=== PATIENT | male | born 1945 | race Caucasian/White ===

== ENCOUNTER 2017-06-05 16:07 | Observation (INO) | payer OTHER ==
[~2017-06-05] VITALS: Ht 167.6 cm; Wt 81.8 kg
[~2017-06-05 16:07] MED LIST: BP MED; BPH MED
[2017-06-05 16:09] VITALS: BP 200/118; PULSE 83; RESP 18; TEMP 98.6; O2SAT 97
[2017-06-05] MEDS ORDERED: SODIUM CHLORIDE 0.9% FLUSH 10 ML FLUSH IVF PRN (16:45)
--- NOTE | 2017-06-05 16:49 | PD ---
HPI Chief Complaint: Neuro Symptoms/ Deficits Time Seen by Provider: 16:19 Travel History International Travel<30 days: No Contact w/Intl Traveler<30days: No Traveled to known affect area: No History of Present Illness HPI The patient is a 72-year-old male who presents emergency department send generalized weakness, neuropathy or lower extremities, and possible early dementia. The patient had a CAT scan one month ago which apparently showed some type of brain tumor per family report and he was being followed by Dr. Flannery, the neurologist. The family member states that the patient developed garbled speech this morning, he was hard to comprehend, and it appeared that he had word salad. The family member states that the patient's speech has currently improved, they are now able to understand the patient. He denied any acute focal deficits of the upper or lower extremities, does note he has had some weakness the lower extremities for several months, occasionally has difficulty going from a sitting to standing position. The patient symptoms were moderate earlier today and self resolving. He denies any current headache , chest pain, shortness breath, nausea, vomiting, or abdominal pain. The family members do note that the patient's speech has resolved. PFSH Past Medical History Cardiovascular Problems: Yes (HTN, hyperlipidemia, CABG) High Cholesterol: Yes Coronary Artery Disease: Yes Diminished Hearing: No Hypertension: Yes Tetanus Vaccination: Never Vaccinated Influenza Vaccination: No Past Surgical History Cardiac Surgery: Yes Coronary Artery Bypass Graft: Yes Tonsillectomy: Yes Social History Alcohol Use: Yes (OCCASIONALLY) Tobacco Use: Yes (1 PPD) Substance Use: No Allergies-Medications (Allergen,Severity, Reaction): Coded Allergies: No Known Allergies (Verified , 01/14/14) Reported Meds & Prescriptions Reported Meds & Active Scripts Active Reported [Bph Med] [Bp Med] Review of Systems Except as stated in HPI: all other systems reviewed are Neg General / Constitutional: No: Fever HENT: No: Lightheadedness Cardiovascular: No: Chest Pain or Discomfort Respiratory: No: Shortness of Breath Gastrointestinal: No: Nausea, Vomiting, Abdominal Pain Musculoskeletal: Positive: Weakness Neurologic: Positive: Weakness, Slurred Speech, No: Focal Abnormalities, Change in Mentation, Paresthesia, Sensory Disturbance Physical Exam Narrative GENERAL: Awake, alert, pleasant 72-year-old male who appears his stated age SKIN: Focused skin assessment warm/dry. HEAD: Atraumatic. Normocephalic. EYES: Pupils equal and round. No scleral icterus. No injection or drainage. ENT: No nasal bleeding or discharge. Mucous membranes pink and moist. NECK: Trachea midline. No JVD. CARDIOVASCULAR: Regular rate and rhythm. No murmur appreciated. Well-healed sternal scar. RESPIRATORY: No accessory muscle use. Clear to auscultation. Breath sounds equal bilaterally. GASTROINTESTINAL: Abdomen soft, non-tender, nondistended. No rebound tenderness. MUSCULOSKELETAL: No obvious deformities. No clubbing. No cyanosis. No edema. NEUROLOGICAL: Awake and alert. No obvious cranial nerve deficits. Motor grossly within normal limits. Normal speech. Patient is oriented to person and place. Smile is symmetric. No obvious drift of the upper or lower extremities. Sensation is symmetric on the face, arms, and legs. No obvious dysarthria. PSYCHIATRIC: Appropriate mood and affect; insight and judgment normal. Data Data Last Documented VS Vital Signs Date Time Temp Pulse Resp B/P (MAP) Pulse Ox O2 Delivery O2 Flow Rate FiO2 06/05/17 16:56 97 Room Air 06/05/17 16:21 18 06/05/17 16:09 98.6 83 Orders Orders Electrocardiogram (06/05/17 16:37) Prothrombin Time / Inr (Pt) (06/05/17 16:37) Act Partial Throm Time (Ptt) (06/05/17 16:37) Complete Blood Count With Diff (06/05/17 16:37) Comprehensive Metabolic Panel (06/05/17 16:37) Creatine Kinase (Cpk) (06/05/17 16:37) Troponin I (06/05/17 16:37) Urinalysis - C+S If Indicated (06/05/17 16:37) Ct Brain W/O Iv Contrast(Rout) (06/05/17 16:37) Chest, Single Ap (06/05/17 16:37) Ecg Monitoring (06/05/17 16:37) Iv Access Insert/Monitor (06/05/17 16:37) Oximetry (06/05/17 16:37) Sodium Chloride 0.9% Flush (Ns Flush) (06/05/17 16:45) Aspirin Chew (Aspirin Chew) (06/05/17 18:00) Labs Laboratory Tests Test 1/15/18 16:40 White Blood Count 6.8 TH/MM3 Red Blood Count 5.69 MIL/MM3 Hemoglobin 17.0 GM/DL Hematocrit 50.9 % Mean Corpuscular Volume 89.5 FL Mean Corpuscular Hemoglobin 29.8 PG Mean Corpuscular Hemoglobin Concent 33.3 % Red Cell Distribution Width 14.8 % Platelet Count 157 TH/MM3 Mean Platelet Volume 8.3 FL Neutrophils (%) (Auto) 61.1 % Lymphocytes (%) (Auto) 25.9 % Monocytes (%) (Auto) 8.3 % Eosinophils (%) (Auto) 3.8 % Basophils (%) (Auto) 0.9 % Neutrophils # (Auto) 4.2 TH/MM3 Lymphocytes # (Auto) 1.8 TH/MM3 Monocytes # (Auto) 0.6 TH/MM3 Eosinophils # (Auto) 0.3 TH/MM3 Basophils # (Auto) 0.1 TH/MM3 CBC Comment DIFF FINAL Differential Comment Prothrombin Time 11.2 SEC Prothromb Time International Ratio 1.1 RATIO Activated Partial Thromboplast Time 32.2 SEC Blood Urea Nitrogen 19 MG/DL Creatinine 1.36 MG/DL Random Glucose 120 MG/DL Total Protein 7.8 GM/DL Albumin 3.8 GM/DL Calcium Level 8.4 MG/DL Alkaline Phosphatase 85 U/L Aspartate Amino Transf (AST/SGOT) 25 U/L Alanine Aminotransferase (ALT/SGPT) 33 U/L Total Bilirubin 0.6 MG/DL Sodium Level 138 MEQ/L Potassium Level 3.7 MEQ/L Chloride Level 105 MEQ/L Carbon Dioxide Level 27.9 MEQ/L Anion Gap 5 MEQ/L Estimat Glomerular Filtration Rate 51 ML/MIN Total Creatine Kinase 131 U/L Troponin I LESS THAN 0.02 NG/ML MDM Medical Decision Making Medical Screen Exam Complete: Yes Emergency Medical Condition: Yes Medical Record Reviewed: Yes Interpretation(s) EKG reveals normal sinus rhythm with a rate of 77. Q wave noted in lead 3 and aVF. Inverted T waves noted in lead V5, V6, 1, and aVL. Last Impressions Head CT 06/05/17 2277 Signed Impressions: Service Date/Time: Monday, June 05, 2017 17:32 - CONCLUSION: Stable CT brain scan with no acute intracranial abnormality. Left middle cranial fossa arachnoid cyst. Mild ischemic deep white matter demyelinization . Vascular calcifications as described. Efe Hampton MD Chest X-Ray 1/15/18 1630 Signed Impressions: Service Date/Time: Monday, June 05, 2017 16:55 - CONCLUSION: No acute disease. Efe Hampton MD Laboratory Tests Test 06/05/17 16:40 White Blood Count 6.8 TH/MM3 Red Blood Count 5.69 MIL/MM3 Hemoglobin 17.0 GM/DL Hematocrit 50.9 % Mean Corpuscular Volume 89.5 FL Mean Corpuscular Hemoglobin 29.8 PG Mean Corpuscular Hemoglobin Concent 33.3 % Red Cell Distribution Width 14.8 % Platelet Count 157 TH/MM3 Mean Platelet Volume 8.3 FL Neutrophils (%) (Auto) 61.1 % Lymphocytes (%) (Auto) 25.9 % Monocytes (%) (Auto) 8.3 % Eosinophils (%) (Auto) 3.8 % Basophils (%) (Auto) 0.9 % Neutrophils # (Auto) 4.2 TH/MM3 Lymphocytes # (Auto) 1.8 TH/MM3 Monocytes # (Auto) 0.6 TH/MM3 Eosinophils # (Auto) 0.3 TH/MM3 Basophils # (Auto) 0.1 TH/MM3 CBC Comment DIFF FINAL Differential Comment Prothrombin Time 11.2 SEC Prothromb Time International Ratio 1.1 RATIO Activated Partial Thromboplast Time 32.2 SEC Blood Urea Nitrogen 19 MG/DL Creatinine 1.36 MG/DL Random Glucose 120 MG/DL Total Protein 7.8 GM/DL Albumin 3.8 GM/DL Calcium Level 8.4 MG/DL Alkaline Phosphatase 85 U/L Aspartate Amino Transf (AST/SGOT) 25 U/L Alanine Aminotransferase (ALT/SGPT) 33 U/L Total Bilirubin 0.6 MG/DL Sodium Level 138 MEQ/L Potassium Level 3.7 MEQ/L Chloride Level 105 MEQ/L Carbon Dioxide Level 27.9 MEQ/L Anion Gap 5 MEQ/L Estimat Glomerular Filtration Rate 51 ML/MIN Total Creatine Kinase 131 U/L Troponin I LESS THAN 0.02 NG/ML Differential Diagnosis Differential diagnosis includes TIA, CVA, intracranial hemorrhage, seizure, complicated migraine, dementia, delirium, UTI, hyponatremia. Narrative Course IV was established, labs are drawn and sent, and the patient was placed on cardiac telemetry monitoring and continuous pulse oximetry monitoring. EKG was ordered and interpreted. Stat CT of the brain was obtained. Creatinine was mildly elevated at 1.36, troponin was unremarkable. CT of the brain reveals an arachnoid cyst, no acute infarct noted. The patient had dysarthria earlier today with no other obvious source such as delirium, may be secondary to a TIA. The patient does have multiple risk factors including hyperlipidemia, known CAD, and hypertension. Therefore, patient be 23 hour observation, may benefit from carotid ultrasound and echocardiogram. The patient [facility] [employer] Physician Communication Physician Communication The patient has [employer], therefore[facility]. Diagnosis Primary Impression: Dysarthria Additional Impression: TIA (transient ischemic attack) Qualified Codes: G45.9 - Transient cerebral ischemic attack, unspecified Admitting Information Admitting Physician Requests: Observation Condition: Stable Geo Maxwell MD Jun 05, 2017 16:49
[2017-06-05 16:56] VITALS: O2SAT 97
[2017-06-05 17:06] LABS: AUTOMATED NEUTROPHIL # 4.2 TH/MM3 (1.8-7.7); BASOPHIL # 0.1 TH/MM3 (0-0.2); BASOPHIL % 0.9 % (0.0-2.0); EOSINOPHIL # 0.3 TH/MM3 (0-0.4); EOSINOPHIL % 3.8 % (0.0-4.0); HEMATOCRIT 50.9 % (39.0-51.0); LYMPH % 25.9 % (9.0-44.0); LYMPHOCYTE # 1.8 TH/MM3 (1.0-4.8); MEAN CELL VOLUME 89.5 FL (80.0-100.0); MEAN CORPUSCULAR HEMOGLOBIN 29.8 PG (27.0-34.0); MEAN CORPUSCULAR HGB CONC 33.3 % (32.0-36.0); MEAN PLATELET VOLUME 8.3 FL (7.0-11.0); MONO % 8.3 % (0.0-8.0); MONOCYTE # 0.6 TH/MM3 (0-0.9); NEUT % 61.1 % (16.0-70.0); PLATELET COUNT 157 TH/MM3 (150-450); RED BLOOD COUNT 5.69 MIL/MM3 (4.50-5.90); RED CELL DISTRIBUTION WIDTH 14.8 % (11.6-17.2); WHITE BLOOD COUNT 6.8 TH/MM3 (4.0-11.0)
[2017-06-05 17:13] LABS: INTERNATIONAL NORMALIZED RATIO 1.1 RATIO; PROTHROMBIN TIME - PATIENT 11.2 SEC (9.8-11.6)
--- NOTE | 2017-06-05 17:13 | RADRPT ---
EXAM DATE/TIME: 06/05/2017 16:55 [facility] COMPARISON: No previous studies available for comparison. INDICATIONS : Syncope. MEDICAL HISTORY : None. SURGICAL HISTORY : CABG. ENCOUNTER: Initial ACUITY: 1 day PAIN SCORE: 0/10 LOCATION: Bilateral chest FINDINGS: There is evidence of prior median sternotomy CABG with atherosclerotic changes the aorta and borderli ne left ventricular cardiomegaly compensate. Lung blankenship are clear. CONCLUSION: No acute disease. Efe Hampton MD on June 05, 2017 at 17:09 Board Certified Radiologist. This report was verified electronically.
[2017-06-05 17:36] LABS: ALKALINE PHOSPHATASE 85 U/L (45-117); TOTAL BILIRUBIN ADULT 0.6 MG/DL (0.2-1.0); TOTAL PROTEIN 7.8 GM/DL (6.4-8.2); TROPONIN I LESS THAN 0.02 NG/ML (0.02-0.05)
--- NOTE | 2017-06-05 17:40 | RADRPT ---
EXAM DATE/TIME: 06/05/2017 17:32 [facility] COMPARISON: CT BRAIN W/O CONTRAST, December 10, 2011, 15:46. INDICATIONS : Altered mental status. RADIATION DOSE: 38.31 CTDIvol (mGy) MEDICAL HISTORY : Cardiovascular disease. Hypertension. SURGICAL HISTORY : None. ENCOUNTER: Initial ACUITY: 1 day PAIN SCALE: 0/10 LOCATION: TECHNIQUE: Multiple contiguous axial images were obtained of the head. Using automated exposure control and adj ustment of the mA and/or kV according to patient size, radiation dose was kept as low as reasonably a chievable to obtain optimal diagnostic quality images. DICOM format image data is available electro nically for review and comparison. FINDINGS: CEREBRUM: The ventricles are normal for age. No evidence of midline shift, mass lesion, hemorrhage or acute in farction. 3 x 4.4 cm arachnoid cyst no cranial fossa is unchanged. There is mild microvascular ischem ic demyelinization. POSTERIOR FOSSA: The cerebellum and brainstem are intact. The 4th ventricle is midline. The cerebellopontine angle i s unremarkable. EXTRACRANIAL: The visualized portion of the orbits is intact. Calcifications are noted in bilateral vertebral arter ies and initial segment of the basilar artery at the foramen. There are vascular calcifications of th e left internal carotid siphons. SKULL: The calvaria is intact. No evidence of skull fracture. CONCLUSION: Stable CT brain scan with no acute intracranial abnormality. Left middle cranial fossa arachnoid cyst. Mild ische susana deep white matter demyelinization . Vascular calcifications as described. Efe Hampton MD on June 05, 2017 at 17:34 Board Certified Radiologist. This report was verified electronically.
[2017-06-05 17:42] LABS: ALBUMIN 3.8 GM/DL (3.4-5.0); ALT (GPT) 33 U/L (12-78); AST (GOT) 25 U/L (15-37); BICARBONATE 27.9 MEQ/L (21.0-32.0); BLOOD UREA NITROGEN 19 MG/DL (7-18); CALCIUM 8.4 MG/DL (8.5-10.1); CHLORIDE 105 MEQ/L (98-107); CREATININE 1.36 MG/DL (0.60-1.30); GLOMERULAR FILTRATION RATE 51 ML/MIN (>89); GLUCOSE,RANDOM 120 MG/DL (74-106); SODIUM (NA) 138 MEQ/L (136-145)
[2017-06-05 18:00] VITALS: BP 211/124; PULSE 75; RESP 18; O2SAT 98
[2017-06-05] MEDS ORDERED: ASPIRIN 81 MG CHEW TAB CHEW ONE (18:00)
[2017-06-05] MEDS ORDERED: METO1TAB42 PO (18:58)
[2017-06-05] MEDS ORDERED: TAMS0.4C4 PO (18:58)
[2017-06-05] MEDS ORDERED: ATOR40TA16 PO (18:58)
[2017-06-05] MEDS ORDERED: NICOTINE 21 MG/24 HR PATCH T-DERMAL ONE (19:00)
[2017-06-05 19:04] LABS: BILIRUBIN, URINE NEG (NEG); BLOOD, URINE NEG (NEG); GLUCOSE,URINE NEG (NEG); KETONE, URINE NEG (NEG); MUCUS URINE FEW /lpf (OCC); NITRITE,URINE NEG (NEG); SQUAMOUS EPITHELIAL CELL URINE <1 /hpf (0-5); URINE COLOR YELLOW (YELLW/STRAW); URINE LEUKOCYTE ESTERASE NEG (NEG)
[2017-06-05 19:10] VITALS: BP 197/110; PULSE 78; RESP 16; O2SAT 97
[2017-06-05] MEDS ORDERED: SODIUM CHLORIDE 0.9% FLUSH 10 ML FLUSH IV FLUSH PRN (19:45)
[2017-06-05] MEDS ORDERED: ENALAPRILAT 2.5 MG/2 ML VIAL IV PUSH PRN (20:15)
[2017-06-05] MEDS ORDERED: SODIUM CHLORIDE 0.9% FLUSH 10 ML FLUSH IV FLUSH SCH (21:00)
--- NOTE | 2017-06-06 15:59 | EKG ---
Date Performed: 06/05/2017 Time Performed: 17:13:31 PTAGE: 72 years EKG: Sinus rhythm PATTERN CONSISTENT WITH PULMONARY DISEASE INFERIOR MYOCARDIAL INFARCTION MODERATE T-WAVE ABNORMALITY , CONSIDER LATERAL ISCHEMIA Since previous tracing, no significant change noted ABNORMAL ECG PREVIOUS TRACING : 01/14/2014 07.35 DOCTOR: Zita Cannon Interpretating Date/Time 06/06/2017 15:59:05
[2017-06-06 18:06] LABS: HEMOGLOBIN A1C 5.7 % (4.3-6.0)
== END 2017-06-05 21:07 | disposition left against medical advice (07) ==
LOC: NEPC 16:07 → NEDA 18:39
PROVIDERS: ADMIT Internal Medicine; ATTEND Internal Medicine
DX: G45.9 Transient cerebral ischemic attack, unspecified (principal); R55 Syncope and collapse; R94.31 Abnormal electrocardiogram [ECG] [EKG]; I25.10 Atherosclerotic heart disease of native coronary artery without angina pectoris; I10 Essential (primary) hypertension; E78.00 Pure hypercholesterolemia, unspecified; G93.0 Cerebral cysts; F17.200 Nicotine dependence, unspecified, uncomplicated; Z95.1 Presence of aortocoronary bypass graft
CPT/HCPCS: 70450; 71045; 80053; 81001; 82550; 83036; 84484; 85025; 85610; 85730; 93005; 99285; G0378

== ENCOUNTER 2017-07-28 11:15 | Inpatient (IN) | payer OTHER, MEDICARE ==
[~2017-07-28] VITALS: Ht 167.6 cm; Wt 99.6 kg
[2017-07-28] VITALS (10 sets, daily range): BP systolic 178–240; BP diastolic 90–133; PULSE 67–88; RESP 16–32; TEMP 97.8–98.1; O2SAT 97–99
[~2017-07-28 11:15] MED LIST changes: +ATOR40TA16 PO; +METO1TAB42 PO; +TAMS0.4C4 PO
[2017-07-28] MEDS ORDERED: GADODIAMIDE PF 287 MG/ML 20 ML VIAL (for RAD MRI) IV PUSH ONE (11:16)
[2017-07-28] MEDS ORDERED: SODIUM CHLOR 0.9% 1000 ML INJ 1,000 ML IV ONE (11:24)
[2017-07-28 11:39] LABS: AUTOMATED NEUTROPHIL # 4.3 TH/MM3 (1.8-7.7); BASOPHIL # 0.1 TH/MM3 (0-0.2); BASOPHIL % 1.2 % (0.0-2.0); EOSINOPHIL # 0.1 TH/MM3 (0-0.4); HEMATOCRIT 46.4 % (39.0-51.0); LYMPH % 24.1 % (9.0-44.0); LYMPHOCYTE # 1.6 TH/MM3 (1.0-4.8); MEAN CELL VOLUME 87.9 FL (80.0-100.0); MEAN CORPUSCULAR HEMOGLOBIN 30.2 PG (27.0-34.0); MEAN CORPUSCULAR HGB CONC 34.4 % (32.0-36.0); MEAN PLATELET VOLUME 8.2 FL (7.0-11.0); MONOCYTE # 0.5 TH/MM3 (0-0.9); NEUT % 64.7 % (16.0-70.0); PLATELET COUNT 165 TH/MM3 (150-450); RED BLOOD COUNT 5.28 MIL/MM3 (4.50-5.90); RED CELL DISTRIBUTION WIDTH 15.1 % (11.6-17.2); WHITE BLOOD COUNT 6.7 TH/MM3 (4.0-11.0)
[2017-07-28 11:43] LABS: INTERNATIONAL NORMALIZED RATIO 1.1 RATIO; PROTHROMBIN TIME - PATIENT 11.4 SEC (9.8-11.6)
[2017-07-28] MEDS ORDERED: IOHEXOL 350 MG/ML 10 ML VIAL (for RAD DIAG) IVCONTRAST ONE (11:43)
--- NOTE | 2017-07-28 11:44 | PD ---
HPI Chief Complaint: Stroke Alert Time Seen by Provider: 11:19 Travel History International Travel<30 days: No Contact w/Intl Traveler<30days: No Traveled to known affect area: No History of Present Illness HPI This patient arrives as a stroke alert. He got up this morning and went to breakfast as his usual self I am told. At 10:15 AM he became abruptly aphasic and confused and nonverbal. He does not follow commands. Very challenging to obtain any history or review of systems from. He just doesn't cooperate with questioning. I can only use the history obtained from paramedics at this point. PFSH Past Medical History Cardiovascular Problems: Yes (HTN, hyperlipidemia, CABG) High Cholesterol: Yes Coronary Artery Disease: Yes Diminished Hearing: No Hypertension: Yes Past Surgical History Cardiac Surgery: Yes Coronary Artery Bypass Graft: Yes Tonsillectomy: Yes Social History Alcohol Use: Yes (OCCASIONALLY) Tobacco Use: Yes (1 PPD) Substance Use: No Allergies-Medications (Allergen,Severity, Reaction): Coded Allergies: No Known Allergies (Verified , 01/14/14) Reported Meds & Prescriptions Reported Meds & Active Scripts Active Reported Tamsulosin (Tamsulosin HCl) 0.4 Mg Cap 0.4 Mg PO HS Metoprolol Succinate ER 24 HR (Metoprolol Succinate) 25 Mg Tab 25 Mg PO DAILY Review of Systems ROS Limitations: Clinical Condition, Altered Mental Status, Uncooperative, Poor Historian Physical Exam Narrative GENERAL: Well-nourished, well-developed patient who is confused and aphasic . SKIN: Focused skin assessment reveals no rash and nodules. Skin is Warm and dry. HEAD: Atraumatic. Normocephalic. EYES: Pupils equal and round. No scleral icterus. No injection or drainage. ENT: No nasal bleeding or discharge. Mucous membranes pink and moist. NECK: Trachea midline. No JVD. CARDIOVASCULAR: Regular rate and rhythm. No murmur appreciated. RESPIRATORY: No accessory muscle use. Clear to auscultation. Breath sounds equal bilaterally. GASTROINTESTINAL: Abdomen soft, non-tender, nondistended. Hepatic and splenic margins not palpable. MUSCULOSKELETAL: No obvious deformities. No clubbing. No cyanosis. No edema. NEUROLOGICAL: Awake and looking around. Seems to have a right sided facial droop. Symmetric reactive and round pupils. Normal gag reflex. He will recheck her and grab at objects with both arms. Withdraws legs to pain stimuli. Nonverbal . Mostly looks toward the left side. PSYCHIATRIC: Appropriate mood and affect; insight and judgment poor Data Data Last Documented VS Vital Signs Date Time Temp Pulse Resp B/P (MAP) Pulse Ox O2 Delivery O2 Flow Rate FiO2 07/28/17 14:24 69 17 240/128 (165) 98 Room Air 07/28/17 11:30 98.1 Orders Orders Diet Npo (07/28/17 Lunch) Activity Bed Rest (07/28/17 ) Electrocardiogram (07/28/17 ) I-Stat Profile (07/28/17 11:24) Prothrombin Time / Inr (Pt) (07/28/17 11:24) Act Partial Throm Time (Ptt) (07/28/17 11:24) Complete Blood Count With Diff (07/28/17 11:24) Fibrinogen (07/28/17 11:24) Creatine Kinase (Cpk) (07/28/17 11:24) Troponin I (07/28/17 11:24) Ua Includes Microscopic (07/28/17 11:24) Drug Screen, Random Urine (07/28/17 11:24) Type And Screen (07/28/17 11:24) Ct Brain W/O Iv Contrast(Rout) (07/28/17 ) Cta Brain W Iv Contrast W 3d (07/28/17 11:24) Cta Neck W Iv Contrast W 3d (07/28/17 11:24) Consult Neurology (07/28/17 ) Blood Glucose (07/28/17 11:24) Ecg Monitoring (07/28/17 11:24) Neuro Checks Q2HX12,Q4H (07/28/17 11:24) Nursing Bedside Swallow Assess .ONCE (07/28/17 11:24) Iv Access Insert/Monitor (07/28/17 11:24) NPO (07/28/17 11:24) Oximetry (07/28/17 11:24) Resp Oxygen Nc Stroke (07/28/17 ) Sodium Chlor 0.9% 1000 Ml Inj (Ns 1000 M (07/28/17 11:24) Cath For Specimen (07/28/17 11:24) (Hub Use Only)Inp Phy Cons/Ref (07/28/17 ) Iohexol 350 Inj (Omnipaque 350 Inj) (07/28/17 11:43) Labetalol Inj (Trandate Inj) (07/28/17 12:00) Labetalol Inj (Trandate Inj) (07/28/17 12:30) Aspirin Supp (Aspirin Supp) (07/28/17 12:45) Mri Brain W&W/O Contrast (07/28/17 ) Consult Vascular Surgery (07/28/17 ) ^ Hold Medication (07/28/17 ) (Hub Use Only)Inp Phy Cons/Ref (07/28/17 ) Gadodiamide Pf Inj (Omniscan Pf Inj) (07/28/17 11:16) Labs Laboratory Tests Test 07/28/17 11:15 07/28/17 12:00 White Blood Count 6.7 TH/MM3 Red Blood Count 5.28 MIL/MM3 Hemoglobin 16.0 GM/DL Bedside Hemoglobin 16.3 G/DL Hematocrit 46.4 % Bedside Hematocrit 48.0 % Mean Corpuscular Volume 87.9 FL Mean Corpuscular Hemoglobin 30.2 PG Mean Corpuscular Hemoglobin Concent 34.4 % Red Cell Distribution Width 15.1 % Platelet Count 165 TH/MM3 Mean Platelet Volume 8.2 FL Neutrophils (%) (Auto) 64.7 % Lymphocytes (%) (Auto) 24.1 % Monocytes (%) (Auto) 8.0 % Eosinophils (%) (Auto) 2.0 % Basophils (%) (Auto) 1.2 % Neutrophils # (Auto) 4.3 TH/MM3 Lymphocytes # (Auto) 1.6 TH/MM3 Monocytes # (Auto) 0.5 TH/MM3 Eosinophils # (Auto) 0.1 TH/MM3 Basophils # (Auto) 0.1 TH/MM3 CBC Comment AUTO DIFF Differential Total Cells Counted 100 Neutrophils % (Manual) 71 % Band Neutrophils % 3 % Lymphocytes % 15 % Monocytes % 8 % Eosinophils % 2 % Basophils % 1 % Neutrophils # (Manual) 5.0 TH/MM3 Differential Comment FINAL DIFF MANUAL Platelet Estimate NORMAL Platelet Morphology Comment NORMAL Prothrombin Time 11.4 SEC Prothromb Time International Ratio 1.1 RATIO Activated Partial Thromboplast Time 31.6 SEC Fibrinogen 323 mg/dL Bedside Sodium 141 MMOL/L Bedside Potassium 3.9 MMOL/L Bedside Chloride 102 MMOL/L Bedside Blood Urea Nitrogen 26 MG/DL Bedside Creatinine 1.5 MG/DL Bedside Glucose 106 MG/DL Total Creatine Kinase 202 U/L Troponin I LESS THAN 0.02 NG/ML Urine Color YELLOW Urine Turbidity CLEAR Urine pH 6.5 Urine Specific [place] 1.021 Urine Protein 30 mg/dL Urine Glucose (UA) NEG mg/dL Urine Ketones NEG mg/dL Urine Occult Blood TRACE Urine Nitrite NEG Urine Bilirubin NEG Urine Urobilinogen LESS THAN 2.0 MG/DL Urine Leukocyte Esterase NEG Urine RBC 2 /hpf Urine WBC LESS THAN 1 /hpf Urine Squamous Epithelial Cells <1 /hpf Urine Mucus FEW /lpf Urine Opiates Screen NEG Urine Barbiturates Screen NEG Urine Amphetamines Screen NEG Urine Benzodiazepines Screen NEG Urine Cocaine Screen NEG Urine Cannabinoids Screen NEG MDM Medical Decision Making Medical Screen Exam Complete: Yes Emergency Medical Condition: Yes Medical Record Reviewed: Yes Differential Diagnosis Ischemic stroke, hemorrhagic stroke, brain tumor Narrative Course I have reviewed the patient's electronic medical record. Patient was seen here November 03, 2017 for neuro symptoms. He was placed in 23 hour observation but I don't see any further rent documentation so wonder if he left AMA. There is no history and physical or discharge summary or any further testing done I evaluated this patient and then promptly sent him to CT Reviewed the grading clerk EKG which basically is the same as the one done June 05, 2017 It is abnormal but does not represent stemi. Brain CT has negative for hemorrhage Case reviewed in detail with neurologist Dr. Austin It turns out he was here June 05 and had strokelike issues. He is deemed not a TPA candidate given recent stroke. Neurologist confirms this. Patient has very accelerated hypertension. Initially presents with 244 systolic I gave him 20 mg IV labetalol It came down slightly but not a whole lot I tried a second dose of labetalol 20 mg It came down to around 200 systolic which is the neurologist will given he is having ischemic acute event we don't want to lower down to normal I reviewed the labs. CBC and metabolic profiles are normal Urine is clean Patient had CT of head and neck Patient had brain MRI which reveals acute or subacute ischemic event in the left MCA territory This is certainly any acute ischemic event Patient's blood pressure crept back up to 240 systolic I reviewed this with the hospitalist will admit We discussed options including Misael mary She will address the blood pressure at this point Patient is complex and multiple rechecks done Of note the patient developed a petechial rash just distal to the blood pressure cuff. The cuff had been working hard to get above is 244 systolic pressure. Has good pulse and capillary refill in the right arm. I believe this will resolve but may take some time. Critical Care Narrative Aggregate critical care time was 78 minutes. Time to perform other separately billable procedures was not included in the critical care time. My time did not include minutes spent treating any other patients simultaneously or on activities that did not directly contribute to the patient's treatment. The services I provided to this patient were to treat and/or prevent clinically significant deterioration that could result in: Permanent neurologic deficit, intracranial hemorrhage, cardiopulmonary arrest I provided critical care services requiring my management, as noted below: Chart data review, documentation time, medication orders and management, vital sign assessments/reviewing monitor data, ordering and reviewing lab tests, ordering and interpreting/reviewing x-rays and diagnostic studies, care of the patient and discussion of the patient with the admitting physicians. Diagnosis Primary Impression: Acute ischemic left MCA stroke Additional Impression: Accelerated hypertension Admitting Information Admitting Physician Requests: Admit Gurpreet Rubalcava MD Jul 28, 2017 11:44
[2017-07-28 11:57] LABS: TROPONIN I LESS THAN 0.02 NG/ML (0.02-0.05)
--- NOTE | 2017-07-28 11:59 | RADRPT ---
EXAM DATE/TIME: 07/28/2017 11:29 [facility] COMPARISON: CT BRAIN W/O CONTRAST, June 05, 2017, 17:32. INDICATIONS : Aphasia, stroke alert RADIATION DOSE: 56.35 CTDIvol (mGy) This report was called by Dr Perry to Dr Austin at 1152 MEDICAL HISTORY : Non-responsive. SURGICAL HISTORY : Non-responsive. ENCOUNTER: Initial ACUITY: 1 day PAIN SCALE: 0/10 LOCATION: cranial TECHNIQUE: Multiple contiguous axial images were obtained of the head. Using automated exposure control and adj ustment of the mA and/or kV according to patient size, radiation dose was kept as low as reasonably a chievable to obtain optimal diagnostic quality images. DICOM format image data is available electro nically for review and comparison. FINDINGS: Extensive periventricular low attenuation change involving both cerebral hemispheres. Atrophy also no karlene. There is an area of encephalomalacia involving the left MCA territory posteriorly which is a new finding from the prior exam. No acute hemorrhage or acute infarction observed. Left middle cranial f grupo arachnoid cyst generates some mass effect upon the temporal lobe. This measures 4.3 x 3.2 cm. No ventriculomegaly observed. Calvarium is intact. Paranasal sinuses and mastoid air cells are clear. CONCLUSION: 1. No acute hemorrhage or infarction. 2. Area of encephalomalacia involving the left MCA territory posteriorly which is a new finding from the prior study. 3. Extensive chronic small vessel ischemic change. Kenton Perry Jr., MD on July 28, 2017 at 11:55 Board Certified Radiologist. This report was verified electronically.
[2017-07-28] MEDS ORDERED: LABETALOL HCL 100 MG/20 ML VIAL IV PUSH ONE ×2 (12:00→12:30)
--- NOTE | 2017-07-28 12:08 | RADRPT ---
EXAM DATE/TIME: 07/28/2017 11:29 [facility] COMPARISON: No previous studies available for comparison. INDICATIONS : Aphasia, stroke alert. IV CONTRAST: 75 cc Omnipaque 350 (iohexol) IV ; Cumulative dose for multiple exams. RADIATION DOSE: 52.83 CTDIvol (mGy) ; Combined studies MEDICAL HISTORY : Non-responsive. SURGICAL HISTORY : Non-responsive. ENCOUNTER: Initial ACUITY: 1 day PAIN SCALE: 0/10 LOCATION: neck Elevated flow velocities and ICA/CCA ratios have been found to correlate with increased degrees of vessel stenosis, calculated as percentage of diameter relative to a normal segment of distal ICA/CCA. TECHNIQUE: Volumetric scanning was performed using a multirow detector CT scanner. The data was post processed with a variety of visualization algorithms including full-volume maximum intensity projection, multip lanar sliding thin-slab reformation, curved-planar reformation, and surface-rendering techniques. Us ing automated exposure control and adjustment of the mA and/or kV according to patient size, radiatio n dose was kept as low as reasonably achievable to obtain optimal diagnostic quality images. DICOM f ormat image data is available electronically for review and comparison. FINDINGS: AORTIC ARCH: Calcification is seen at the origin of the right innominate, and left subclavian. RIGHT CAROTID: Extremely tortuous without hemodynamically significant stenosis. LEFT CAROTID: Large amount of calcification in the proximal left internal carotid with minimal soft plaque. Stenos is is present compromise the lumen by 70-80%. VERTEBRALS: The left vertebral is patent with abundant in bed for artery calcification. The right ` vertebra l is not visualized. CONCLUSION: No cysts proximal left internal carotid with soft plaque. Stenosis 2 cm above the bifurcation is michael roximately 75% to 80%. Bowen Cameron MD FACR on July 28, 2017 at 12:03 Board Certified Radiologist. This report was verified electronically.
--- NOTE | 2017-07-28 12:09 | RADRPT ---
EXAM DATE/TIME: 07/28/2017 11:29 [facility] COMPARISON: No previous studies available for comparison. INDICATIONS : Aphasia, stroke alert. IV CONTRAST: 75 cc Omnipaque 350 (iohexol) IV ; Cumulative dose for multiple exams. RADIATION DOSE: 52.83 CTDIvol (mGy) ; Combined studies MEDICAL HISTORY : Non-responsive. SURGICAL HISTORY : Non-responsive. ENCOUNTER: Initial ACUITY: 1 day PAIN SCALE: 0/10 LOCATION: cranial TECHNIQUE: Volumetric scanning was performed using a multi-row detector CT scanner. The data was post processed with a variety of visualization algorithms including full volume maximum intensity projection, multi -planar sliding thin slab reformation, curved planar reformation, and surface rendering techniques. Using automated exposure control and adjustment of the mA and/or kV according to patient size, radiat ion dose was kept as low as reasonably achievable to obtain optimal diagnostic quality images. DICO M format image data is available electronically for review and comparison. FINDINGS: There is excellent visualization of the major intracranial arteries out to the second-order branch ve ssels. Diffuse atherosclerotic disease is observed. Within the posterior circulation there are multi ple areas of stenosis throughout the basilar artery this is in part due to calcified and noncalcified atherosclerotic plaque. There is a solitary high-grade stenosis involving the basilar artery. Mild a therosclerotic disease throughout the posterior cerebral arteries bilaterally without hemodynamically significant stenosis noted. Calcified plaque is seen throughout the intercavernous ICAs bilaterally. The maximum stenosis is 40% involving the left. Diffuse disease throughout the M1 segment on the lef t which is diffusely small in caliber. There is a more focal area of higher stenosis involving the pr oximal M1 segment with a stenosis measuring 60-70%. The right M1 segment is less heavily involved. Th e right A1 segment is diffusely small in caliber. The left A1 segment is a caliber vessel but shows s cattered atherosclerotic plaque with areas of mild luminal narrowing. No high grade stenosis seen inv olving that vessel. No filling defects observed to suggest an embolus or thrombus. No aneurysms. I spoke with Dr. Austin concerning the findings. CONCLUSION: Diffuse atherosclerotic disease. This involves the anterior and posterior circulations including area s of high-grade stenosis. In particular there is a high-grade stenosis involving the proximal left M1 segment which is diffusely diseased. No embolus or thrombus appreciated. Kenton Perry Jr., MD on July 28, 2017 at 12:00 Board Certified Radiologist. This report was verified electronically.
[2017-07-28 12:34] LABS: BANDS 3 % (0-6); BASOPHILS 1 % (0-2); LYMPHOCYTES 15 % (9-44); MONOCYTES 8 % (0-8); POLYS (SEG NEUTROPHILS) 71 % (16-70)
--- NOTE | 2017-07-28 12:43 | MB ---
cc: Angel Austin MD DATE OF CONSULT: 07/28/2017 HISTORY OF PRESENT ILLNESS: A 72-year-old man who unfortunately comes in mute and aphasic. He was just seen in the ER on June 05, 2017, came in with generalized weakness, possible early dementia, being followed by Dr. Flannery. He developed garbled speech on June 08, hard to comprehend, word salad and then it seemed to get better and they were now able to understand him. He did not have any focal deficits. PAST MEDICAL HISTORY: 1. He had a history of hypertension. 2. CABG. 3. Hyperlipidemia. SOCIAL HISTORY: He is a drinker occasionally. He has one pack per day smoking. Not a drug user. Lives alone. FAMILY HISTORY: Negative for cancer, seizure or stroke. ALLERGIES: NO KNOWN DRUG ALLERGIES. MEDICATIONS: None were listed on the prior encounter. He was supposed to take an aspirin per day according to his daughter. She is not sure if he is taking it every day. REVIEW OF SYSTEMS: According to his daughter, history of hypertension, borderline diabetes, otherwise no history of hypercholesterolemia, A-fib, Coumadin, renal, hepatic or pulmonary disease, thyroid disease, lupus, ulcer, cancer, seizure. IMAGING STUDIES: They did a CAT scan of the brain that showed white matter changes and a left middle cranial fossa arachnoid cyst. LABORATORY DATA: His CBC was essentially normal. Hematocrit was 50. His coags were normal. His creatinine was 1.36. His BMP otherwise was normal. His LFTs were normal. His glucose was normal. His troponin was negative. CPK was normal. They thought he possibly could have had a TIA. He was put on tele. He was put on observation and then evidently left the hospital after that; it is unclear. The patient did have an echocardiogram here in 2013 which showed an ejection fraction of 55-60%. The mitral valve was normal. The left atrial size was normal. Aortic valve was normal. Left atrial size 32. Nevertheless a Stroke Alert was called today. PHYSICAL EXAMINATION: VITAL SIGNS: 219/133, 32, 78, sinus rhythm. NECK: There were no carotid bruits. HEART: Regular rhythm. I do not detect a murmur. CHEST: He has a well-healed CABG scar midline chest. NEUROLOGICAL EXAMINATION: Visual blankenship - He reacts to threat on the right, a little bit better than to the left. He may have just a hint of right upper lip droop. Otherwise he moves his mouth and tongue fine. He seems to move all his extremities well, certainly bilateral lower extremity strength was normal. Right upper extremity strength appeared normal. Left upper extremity had a slight drift there at one time. His toes are downgoing bilaterally. He seemed to feel discomfort throughout. He is mute. He does not follow any commands. When I asked him to stick out his tongue, he opens his mouth wide. LABORATORY DATA: Pending from today. I am told his creatinine is 1.5 today. He had a carotid ultrasound done in 2013. 50% stenosis seen on the left. He had a CAT scan done on June 05 which I reviewed and shows what appears to be white matter changes in the left anterior temporal arachnoid cyst but no left MCA infarct is noted but today's CAT scan shows what appears to be probably a subacute left MCA infarct, probably from May. An MRI of the brain was done, was read as essentially negative in 2011 with the arachnoid cyst. Those films unfortunately cannot be pulled up. IMPRESSION AND PLAN: Left MCA infarct I suspect in May. He is not a t-PA candidate as a result. That was approximately seven weeks ago. He would be at increased risk for hemorrhage if we were to give him t-PA. We will do a CTA here and further stroke workup. I did talk with his daughter. He had that episode but he slowly seemed to get better from in mid-May and then about a week later he had another episode where he had difficulty talking and none since that time. She talked to him yesterday and he could talk fine then and then evidently the next time he was seen this morning he could not talk. He lives at home alone. MD NÉSTOR Harrison/LEANNA , 11:48 AM , 12:42 PM
[2017-07-28] MEDS ORDERED: ASPIRIN 300 MG SUPP RECTAL ONE (12:45)
[2017-07-28 13:06] LABS: BILIRUBIN, URINE NEG (NEG); BLOOD, URINE TRACE (NEG); GLUCOSE,URINE NEG (NEG); KETONE, URINE NEG (NEG); MUCUS URINE FEW /lpf (OCC); NITRITE,URINE NEG (NEG); PH, URINE 6.5 (5.0-8.5); SQUAMOUS EPITHELIAL CELL URINE <1 /hpf (0-5); URINE COLOR YELLOW (YELLW/STRAW); URINE LEUKOCYTE ESTERASE NEG (NEG)
--- NOTE | 2017-07-28 14:02 | PD.CAR.PN ---
CVT Progress Note Subjective/Hospital Course: Consult received Full dictation TF Antonio J Objective: Vital Signs Date Time Temp Pulse Resp B/P (MAP) Pulse Ox O2 Delivery O2 Flow Rate FiO2 07/28/17 13:13 69 20 220/101 (140) 98 07/28/17 12:17 74 18 224/119 (154) 98 Room Air 07/28/17 12:02 78 16 220/110 (146) 98 Room Air 07/28/17 12:02 Room Air 07/28/17 11:45 220/110 (146) 07/28/17 11:30 98.1 77 237/126 (163) 07/28/17 11:17 78 32 219/133 (161) 99 Labs: Laboratory Tests Test 07/28/17 11:15 07/28/17 12:00 White Blood Count 6.7 TH/MM3 (4.0-11.0) Red Blood Count 5.28 MIL/MM3 (4.50-5.90) Hemoglobin 16.0 GM/DL (13.0-17.0) Bedside Hemoglobin 16.3 G/DL (13.0-17.0) Hematocrit 46.4 % (39.0-51.0) Bedside Hematocrit 48.0 % (39.0-51.0) Mean Corpuscular Volume 87.9 FL (80.0-100.0) Mean Corpuscular Hemoglobin 30.2 PG (27.0-34.0) Mean Corpuscular Hemoglobin Concent 34.4 % (32.0-36.0) Red Cell Distribution Width 15.1 % (11.6-17.2) Platelet Count 165 TH/MM3 (150-450) Mean Platelet Volume 8.2 FL (7.0-11.0) Neutrophils (%) (Auto) 64.7 % (16.0-70.0) Lymphocytes (%) (Auto) 24.1 % (9.0-44.0) Monocytes (%) (Auto) 8.0 % (0.0-8.0) Eosinophils (%) (Auto) 2.0 % (0.0-4.0) Basophils (%) (Auto) 1.2 % (0.0-2.0) Neutrophils # (Auto) 4.3 TH/MM3 (1.8-7.7) Lymphocytes # (Auto) 1.6 TH/MM3 (1.0-4.8) Monocytes # (Auto) 0.5 TH/MM3 (0-0.9) Eosinophils # (Auto) 0.1 TH/MM3 (0-0.4) Basophils # (Auto) 0.1 TH/MM3 (0-0.2) CBC Comment AUTO DIFF Differential Total Cells Counted 100 Neutrophils % (Manual) 71 % (16-70) Band Neutrophils % 3 % (0-6) Lymphocytes % 15 % (9-44) Monocytes % 8 % (0-8) Eosinophils % 2 % (0-4) Basophils % 1 % (0-2) Neutrophils # (Manual) 5.0 TH/MM3 (1.8-7.7) Differential Comment FINAL DIFF MANUAL Platelet Estimate NORMAL (NORMAL) Platelet Morphology Comment NORMAL (NORMAL) Prothrombin Time 11.4 SEC (9.8-11.6) Prothromb Time International Ratio 1.1 RATIO Activated Partial Thromboplast Time 31.6 SEC (24.3-30.1) Fibrinogen 323 mg/dL (227-377) Bedside Sodium 141 MMOL/L (137-144) Bedside Potassium 3.9 MMOL/L (3.6-5.0) Bedside Chloride 102 MMOL/L (102-111) Bedside Blood Urea Nitrogen 26 MG/DL (5-21) Bedside Creatinine 1.5 MG/DL (0.6-1.3) Bedside Glucose 106 MG/DL (68-110) Total Creatine Kinase 202 U/L (39-308) Troponin I LESS THAN 0.02 NG/ML Urine Color YELLOW (YELLW/STRAW) Urine Turbidity CLEAR (CLEAR) Urine pH 6.5 (5.0-8.5) Urine Specific [place] 1.021 (1.002-1.035) Urine Protein 30 mg/dL (NEG-TRACE) Urine Glucose (UA) NEG mg/dL (NEG) Urine Ketones NEG mg/dL (NEG) Urine Occult Blood TRACE (NEG) Urine Nitrite NEG (NEG) Urine Bilirubin NEG (NEG) Urine Urobilinogen LESS THAN 2.0 MG/DL (LESS Urine Leukocyte Esterase NEG (NEG) Urine RBC 2 /hpf (0-3) Urine WBC LESS THAN 1 /hpf (0-5) Urine Squamous Epithelial Cells <1 /hpf (0-5) Urine Mucus FEW /lpf (OCC) Urine Opiates Screen NEG (NEG) Urine Barbiturates Screen NEG (NEG) Urine Amphetamines Screen NEG (NEG) Urine Benzodiazepines Screen NEG (NEG) Urine Cocaine Screen NEG (NEG) Urine Cannabinoids Screen NEG (NEG) Result Diagram: 07/28/17 1115 Raina Ellsworth MD Jul 28, 2017 14:02
--- NOTE | 2017-07-28 14:53 | RADRPT ---
EXAM DATE/TIME: 07/28/2017 13:49 [facility] COMPARISON: CT BRAIN W/O CONTRAST, July 28, 2017, 11:29. INDICATIONS : Altered mental status. CONTRAST: 20 cc Omniscan (gadodiamide) IV MEDICAL HISTORY : Benign prostatic hyperplasia, (BPH) Hypertension. SURGICAL HISTORY : CABG ENCOUNTER: Initial ACUITY: 2 day PAIN SCORE: 0/10 LOCATION: Head TECHNIQUE: Multiplanar, multisequence MRI of the brain was performed both prior to and following the administrat ion of paramagnetic contrast. FINDINGS: CEREBRUM: The ventricles are normal for age. Cortical atrophy slightly more prominent on the left. No acute int racranial hemorrhage. Prominent 3.9 x 2.2 cm arachnoid cyst in the anterior left middle cranial fossa The pituitary gland and suprasellar cistern are normal in configuration. WHITE MATTER: Significant periventricular and scattered deep white matter tracts small vessel ischemic demyelinatio n. POSTERIOR FOSSA: The cerebellum and brainstem are intact. The 4th ventricle is midline. The cerebellopontine angle is unremarkable. The cerebellar tonsils are normal in position. DIFFUSION IMAGING: Gyriform diffusion restriction in the left MCA territory. EXTRACRANIAL: The visualized portions of the orbits and paranasal sinuses are unremarkable. POST-CONTRAST: No abnormal areas of parenchymal or dural enhancement. No evidence of blood-brain barrier breakdown. CONCLUSION: 1. Gyriform diffusion restriction characteristics of an acute or subacute ischemic event in the left MCA territory. 2. Cortical atrophy slightly more prominent leftward. Severe periventricular and scattered deep white matter tracts small vessel ischemic demyelination. 3. 3.9 x 2.2 cm arachnoid cyst in the anterior left middle cranial fossa. Tomi Tejada MD on July 28, 2017 at 14:46 Board Certified Radiologist. This report was verified electronically.
[2017-07-28] MEDS ORDERED: LABETALOL HCL 100 MG/20 ML VIAL IV PUSH PRN (16:15)
[2017-07-28] MEDS ORDERED: NITROPRUSSIDE INJ 50 MG in DEXTROSE 5% IN WATER INJ 248 ML IV PRN ×2 (16:15)
[2017-07-28] MEDS ORDERED: DEXTROSE 50% IN WATER 50 ML VIAL(D50) IV PUSH PRN (16:15)
[2017-07-28] MEDS ORDERED: GLUCAGON 1 MG/ML VIAL OTHER PRN ×2 (16:15)
[2017-07-28] MEDS: SODIUM CHLOR 0.9% 1000 ML INJ 1,000 ML IV SCH ×2 (16:30→22:47)
[2017-07-28] MEDS: INSULIN ASPART SUPPLEMENTAL SCALE SQ SCH ×2 (17:00→21:31)
[2017-07-28] MEDS ORDERED: ENOXAPARIN SODIUM 40 MG/0.4 ML SYRINGE SQ SCH (17:00)
[2017-07-28] MEDS ORDERED: INSULIN ASPART SUPPLEMENTAL SCALE SQ SCH (17:00)
[2017-07-28 17:29] LABS: BICARBONATE 26.2 MEQ/L (21.0-32.0); CALCIUM 8.8 MG/DL (8.5-10.1); CREATININE 1.49 MG/DL (0.60-1.30)
--- NOTE | 2017-07-28 18:03 | HHI.HP ---
HPI Service [facility] Hospitalists Primary Care Physician Unknown Admission Diagnosis acute ischemic L MCA CVA, accelerated HTN Diagnoses: Chief Complaint: unable to speak AMS Travel History International Travel<30 Days: No Contact w/Intl Traveler <30 Da: No Traveled to Known Affected Are: No History of Present Illness Written by Terrie Werner, acting as scribe for Dr. Thompson on 07/28/17 at 17:56. This is 72-year-old male with past medical history significant for hypertension , CAD status post previous CABG, brain tumor followed by Dr. Flannery and dyslipidemia who presented to [facility] ED as a stroke alert. Patient is unable to give any history due to expressive aphasia and therefore history is obtained from review of electronic medical record and the daughter who is at the bedside. Reportedly, patient went to breakfast this morning and was in his usual state of health until around 10:15 AM when he became abruptly aphasic, confused and nonverbal. He was not able to follow commands. Apparently, he has been having episodes of "mini strokes" for the past few weeks. He was just seen in the ED Jun 05 2017 with generalized weakness and garbled speech that resolved on their own. CT of the brain at that time did not show any acute infarct. It was recommended patient stay for observation in the hospital but he declined. At present, he remains aphasic but is able to understand. He is able to follow commands. In the ED today, no acute hemorrhage or infarction appreciated however there was an area of encephalomalacia involving left MCA territory posteriorly which was new finding from the previous CT. Review of Systems Unable to obtain due to patient's aphasia Past Family Social History Past Medical History Hypertension Coronary artery disease status post CABG Dyslipidemia Borderline diabetes Brain tumor followed by Dr. Flannery Past Surgical History CABG x 4 Reported Medications Reported Meds & Active Scripts Active Reported Tamsulosin (Tamsulosin HCl) 0.4 Mg Cap 0.4 Mg PO HS Metoprolol Succinate ER 24 HR (Metoprolol Succinate) 25 Mg Tab 25 Mg PO DAILY Allergies: Coded Allergies: No Known Allergies (Verified , 01/14/14) Active Ordered Medications Active Medications Aspirin (Aspirin Chew) 81 mg DAILY PO; Start 07/29/17 at 09:00 Aspirin (Aspirin Supp) 300 mg STAT ONCE RECTAL Last administered on 07/28/17at 12 :45; Admin Dose 300 MG; Start 07/28/17 at 12:45; Stop 07/28/17 at 12:46; Status DC Atorvastatin Calcium (Lipitor) 10 mg HS PO; Start 07/28/17 at 21:00 Dextrose (D50w (Vial) Inj) 50 ml UNSCH PRN IV PUSH; Start 07/28/17 at 16:15 Dextrose (D50w (Vial) Inj) 50 ml UNSCH PRN IV PUSH; Start 07/28/17 at 16:15 Enalaprilat (Vasotec Inj) 1.25 mg Q4H PRN IV PUSH; Start 07/28/17 at 16:15 Enoxaparin Sodium (Lovenox Inj) 40 mg Q24H SQ; Start 07/28/17 at 17:00 Gadodiamide (Omniscan Pf Inj) 20 ml STK-MED ONCE IV PUSH Last administered on 07/28/17at 11:16; Admin Dose 20 ML; Start 07/28/17 at 11:16; Stop 07/28/17 at 15:31; Status DC Glucagon (Glucagon Inj) 1 mg UNSCH PRN OTHER; Start 07/28/17 at 16:15 Glucagon (Glucagon Inj) 1 mg UNSCH PRN OTHER; Start 07/28/17 at 16:15 Insulin Aspart (NovoLOG SUPPLEMENTAL SCALE) 1 ACHS SQ; Start 07/28/17 at 17:00; Stop 07/28/17 at 17:00; Status DC Insulin Aspart (NovoLOG SUPPLEMENTAL SCALE) 1 ACHS SLIDING SCALE SQ; Start 07/28 at 17:00 Iohexol (Omnipaque 350 Inj) 75 ml STK-MED ONCE IVCONTRAST Last administered on at 11:43; Admin Dose 75 ML; Start 07/28/17 at 11:43; Stop 07/28/17 at 11:44; Status DC Labetalol HCl (Trandate Inj) 10 mg Q2H PRN IV PUSH; Start 07/28/17 at 16:15 Labetalol HCl (Trandate Inj) 20 mg ONCE ONCE IV PUSH Last administered on at 12:00; Admin Dose 20 MG; Start 07/28/17 at 12:00; Stop 07/28/17 at 12:01; Status DC Labetalol HCl (Trandate Inj) 20 mg ONCE ONCE IV PUSH Last administered on at 12:30; Admin Dose 20 MG; Start 07/28/17 at 12:30; Stop 07/28/17 at 12:31; Status DC Metoprolol Succinate (Toprol Xl) 25 mg DAILY PO; Start 07/29/17 at 09:00 Sodium Nitroprusside 50 mg/Dextrose 250 ml @ 14.94 mls/ hr TITRATE PRN IV; Start 07/28/17 at 16:15 Sodium Chloride 1,000 ml @ 70 mls/hr [id number] IV Last administered on 07/28/17at 16:30; Admin Dose 70 MLS/HR; Start 07/28/17 at 16:09 Sodium Chloride 1,000 ml @ 70 mls/hr [id number] ONCE IV Last administered on at 12:01; Admin Dose 70 MLS/HR; Start 07/28/17 at 11:24; Stop 07/29/17 at 01:41 Sodium Chloride (NS Flush) 2 ml BID IV FLUSH; Start 07/28/17 at 21:00 Sodium Chloride (NS Flush) 2 ml UNSCH PRN IV FLUSH; Start 07/28/17 at 16:15 Tamsulosin HCl (Flomax) 0.4 mg HS PO; Start 07/28/17 at 21:00 Family History Son, sudden cardiac Social History Per review of the medical record, patient smokes 1 pack per day, drinks alcohol occasionally and does not have any drug use history. Physical Exam Vital Signs Vital Signs Date Time Temp Pulse Resp B/P (MAP) Pulse Ox O2 Delivery O2 Flow Rate FiO2 07/28/17 16:30 97.8 69 16 214/110 (144) 98 Room Air 07/28/17 14:24 69 17 240/128 (165) 98 Room Air 07/28/17 13:13 69 20 220/101 (140) 98 07/28/17 12:17 74 18 224/119 (154) 98 Room Air 07/28/17 12:02 78 16 220/110 (146) 98 Room Air 07/28/17 12:02 Room Air 07/28/17 11:45 220/110 (146) 07/28/17 11:30 98.1 77 237/126 (163) 07/28/17 11:17 78 32 219/133 (161) 99 Physical Exam GENERAL: This is a well-nourished, well-developed male patient, in no apparent distress. Awake and alert. Right sided facial droop. SKIN: No rashes, ecchymoses or lesions. Cool and dry. HEAD: Atraumatic. Normocephalic. No temporal or scalp tenderness. EYES: Pupils equal round and reactive. Extraocular motions intact. No scleral icterus. No injection or drainage. ENT: Nose without bleeding or purulent drainage. Throat without erythema, tonsillar hypertrophy or exudate. Uvula midline. Airway patent. NECK: Trachea midline. No lymphadenopathy. Supple, nontender, no meningeal signs. CARDIOVASCULAR: Regular rate and rhythm without murmurs, gallops, or rubs. RESPIRATORY: Clear to auscultation. Breath sounds equal bilaterally. No wheezes , rales, or rhonchi. GASTROINTESTINAL: Abdomen soft, non-tender, nondistended. No hepato-splenomegaly , or palpable masses. No guarding. MUSCULOSKELETAL: Extremities without clubbing, cyanosis, or edema. No joint tenderness, effusion, or edema noted. No calf tenderness. NEUROLOGICAL: Awake and alert. Right sided facial droop. Decreased sensation over the right side of the face. Motor and sensory grossly within normal limits. Five out of 5 muscle strength in all muscle groups. Expressive aphasia. Laboratory Laboratory Tests Test 07/28/17 11:15 07/28/17 12:00 White Blood Count 6.7 Red Blood Count 5.28 Hemoglobin 16.0 Bedside Hemoglobin 16.3 Hematocrit 46.4 Bedside Hematocrit 48.0 Mean Corpuscular Volume 87.9 Mean Corpuscular Hemoglobin 30.2 Mean Corpuscular Hemoglobin Concent 34.4 Red Cell Distribution Width 15.1 Platelet Count 165 Mean Platelet Volume 8.2 Neutrophils (%) (Auto) 64.7 Lymphocytes (%) (Auto) 24.1 Monocytes (%) (Auto) 8.0 Eosinophils (%) (Auto) 2.0 Basophils (%) (Auto) 1.2 Neutrophils # (Auto) 4.3 Lymphocytes # (Auto) 1.6 Monocytes # (Auto) 0.5 Eosinophils # (Auto) 0.1 Basophils # (Auto) 0.1 CBC Comment AUTO DIFF Differential Total Cells Counted 100 Neutrophils % (Manual) 71 Band Neutrophils % 3 Lymphocytes % 15 Monocytes % 8 Eosinophils % 2 Basophils % 1 Neutrophils # (Manual) 5.0 Differential Comment FINAL DIFF MANUAL Platelet Estimate NORMAL Platelet Morphology Comment NORMAL Prothrombin Time 11.4 Prothromb Time International Ratio 1.1 Activated Partial Thromboplast Time 31.6 Fibrinogen 323 Bedside Sodium 141 Blood Urea Nitrogen 22 Creatinine 1.49 Random Glucose 101 Calcium Level 8.8 Sodium Level 140 Potassium Level 4.0 Chloride Level 104 Carbon Dioxide Level 26.2 Bedside Potassium 3.9 Bedside Chloride 102 Anion Gap 10 Bedside Blood Urea Nitrogen 26 Bedside Creatinine 1.5 Estimat Glomerular Filtration Rate 46 Bedside Glucose 106 Total Creatine Kinase 202 Troponin I LESS THAN 0.02 Urine Color YELLOW Urine Turbidity CLEAR Urine pH 6.5 Urine Specific [place] 1.021 Urine Protein 30 Urine Glucose (UA) NEG Urine Ketones NEG Urine Occult Blood TRACE Urine Nitrite NEG Urine Bilirubin NEG Urine Urobilinogen LESS THAN 2.0 Urine Leukocyte Esterase NEG Urine RBC 2 Urine WBC LESS THAN 1 Urine Squamous Epithelial Cells <1 Urine Mucus FEW Urine Opiates Screen NEG Urine Barbiturates Screen NEG Urine Amphetamines Screen NEG Urine Benzodiazepines Screen NEG Urine Cocaine Screen NEG Urine Cannabinoids Screen NEG Result Diagram: 07/28/17 1115 07/28/17 1115 Imaging Last Impressions Neck CTA 07/28/17 1124 Signed Impressions: Service Date/Time: Friday, July 28, 2017 11:29 - CONCLUSION: No cysts proximal left internal carotid with soft plaque. Stenosis 2 cm above the bifurcation is approximately 75%% to 80%%. Bowen Cameron MD FACR Head CTA 07/28/17 1124 Signed Impressions: Service Date/Time: Friday, July 28, 2017 11:29 - CONCLUSION: Diffuse atherosclerotic disease. This involves the anterior and posterior circulations including areas of high-grade stenosis. In particular there is a high-grade stenosis involving the proximal left M1 segment which is diffusely diseased. No embolus or thrombus appreciated. Kenton Perry Jr., MD Head CT 07/28/17 0000 Signed Impressions: Service Date/Time: Friday, July 28, 2017 11:29 - CONCLUSION: 1. No acute hemorrhage or infarction. 2. Area of encephalomalacia involving the left MCA territory posteriorly which is a new finding from the prior study. 3. Extensive chronic small vessel ischemic change. Kenton Perry Jr., MD Brain MRI 07/28/17 0000 Signed Impressions: Service Date/Time: Friday, July 28, 2017 13:49 - CONCLUSION: 1. Gyriform diffusion restriction characteristics of an acute or subacute ischemic event in the left MCA territory. 2. Cortical atrophy slightly more prominent leftward. Severe periventricular and scattered deep white matter tracts small vessel ischemic demyelination. 3. 3.9 x 2.2 cm arachnoid cyst in the anterior left middle cranial fossa. MD Lavelle Larkin VTE Risk Assessment Caprini VTE Risk Assessment: Mod/High Risk (score >= 2) VTE Pharm Contraindication: Active bleeding Caprini Risk Assessment Model Point Value = 1 Point Value = 2 Point Value = 3 Point Value = 5 Age 41-60 Minor surgery BMI > 25 kg/m2 Swollen legs Varicose veins or History of unexplained or recurrent spontaneous Oral contraceptives or hormone replacement Sepsis (< 1 month) Serious lung disease, including pneumonia (< 1 month) Abnormal pulmonary function Acute myocardial infarction Congestive heart failure (< 1 month) History of inflammatory bowel disease Medical patient at bed rest Age 61-74 Arthroscopic surgery Major open surgery (> 45 min) Laparoscopic surgery (> 45 min) Malignancy Confined to bed (> 72 hours) Immobilizing plaster cast Central venous access Age >= 75 History of VTE Family history of VTE Factor V Leiden Prothrombin [id number] Lupus anticoagulant Anticardiolipin antibodies Elevated serum homocysteine Heparin-induced thrombocytopenia Other congenital or acquired thrombophilia Stroke (< 1 month) Elective arthroplasty Hip, pelvis, or leg fracture Acute spinal cord injury (< 1 month) Prophylaxis Regimen Total Risk Factor Score Risk Level Prophylaxis Regimen 0-1 Low Early ambulation 2 Moderate Order ONE of the following: *Sequential Compression Device (SCD) *Heparin 5000 units SQ BID 3-4 Higher Order ONE of the following medications: *Heparin 5000 units SQ TID *Enoxaparin/Lovenox 40 mg SQ daily (WT < 150 kg, CrCl > 30 mL/min) *Enoxaparin/Lovenox 30 mg SQ daily (WT < 150 kg, CrCl > 10-29 mL/min) *Enoxaparin/Lovenox 30 mg SQ BID (WT < 150 kg, CrCl > 30 mL/min) AND/OR *Sequential Compression Device (SCD) 5 or more Highest Order ONE of the following medications: *Heparin 5000 units SQ TID (Preferred with Epidurals) *Enoxaparin/Lovenox 40 mg SQ daily (WT < 150 kg, CrCl > 30 mL/min) *Enoxaparin/Lovenox 30 mg SQ daily (WT < 150 kg, CrCl > 10-29 mL/min) *Enoxaparin/Lovenox 30 mg SQ BID (WT < 150 kg, CrCl > 30 mL/min) AND *Sequential Compression Device (SCD) Assessment and Plan Assessment and Plan 72-year-old male with past medical history significant for hypertension, CAD status post previous CABG, brain tumor followed by Dr. Flannery and dyslipidemia who presented to [facility] ED as a stroke alert with expressive aphasia. Subacute left MCA infarct Expressive Aphasia -CT head shows no acute hemorrhage or infarction, there is an area of encephalomalacia involving the left MCA territory posteriorly, images reviewed by az -Brain MRI shows gyriform diffusion restriction characteristic of acute or subacute ischemic event in the left MCA territory -Neck CTA significant for 70-80% stenosis left internal carotid -Head CTA reveals diffuse atherosclerotic disease involving the anterior posterior circulations including areas of high-grade stenosis, high-grade stenosis involving proximal left M1 segment which is diffusely diseased -Patient has already been evaluated by Dr. Austin - likely infarct in May. Not a TPA candidate due to increased risk of hemorrhage given likely infarct 7 weeks ago. -Consult stroke navigator -neuro checks -Holter monitor -Continuous cardiac monitoring -Consult rehabilitation medicine -Patient given ASA 300mg rectal, now with macroscopic hematuria -Statin daily once able to swallow -PT/OT/ST eval/tx -NPO for now, IVF ordered -monitor blood sugars -obtain fasting lipid profile and A1c -fall, aspiration and seizure precautions Hypertension, uncontrolled -allow permissive HTN -IV Vasotec 1.25mg q 4h or Labetalol 10mg IV q2h prn SBP>220 or DBP>120 PVD -70-80% stenosis left internal carotid -Dr. Ellsworth consulted CAD s/p CABG -Patient has no cardiac complaints at this time -hold aspirin due to macroscopic hematuria -resume home metoprolol 25mg daily once cleared to swallow -Continuous cardiac monitoring ?JASIEL on suspected CKD -creatinine 1.49, previously Cr 1.36 06/05/17 and 1.04 in 2013 -Avoid nephrotoxic agents -Continue to monitor renal indices Borderline DM -Obtain hemoglobin A1c -accucheck and insulin sliding scale Macroscopic hematuria BPH -Cavazos placed with gross hematuria -resume home dose of Flomax -UA unremarkable -avoid anticoagulation -Ditropan for bladder spasms -Consult Urology, appreciate assistance DVT prophylaxis -Avoid anticoagulation at this time due to hematuria -Bilateral SCD/ZENIA hose This note was transcribed by LEE Riley . I, Dr. Lisa Thompson personally performed the history, physical exam, and medical decision making; and confirmed the accuracy of the information in the transcribed note. Authenticated by Dr. Lisa Thompson on 07/28/17 at 17:56. Discussed Condition With ED physician, nursing staff, patient and daughter Physician Certification 2 Midnight Certification Type: Admission for Inpatient Services Order for Inpatient Services The services are ordered in accordance with Medicare regulations or non- Medicare payer requirements, as applicable. In the case of services not specified as inpatient-only, they are appropriately provided as inpatient services in accordance with the 2-midnight benchmark. Estimated LOS (days): 3 3 days is the estimated time the patient will need to remain in the hospital, assuming treatment plan goals are met and no additional complications. Post-Hospital Plan: Not yet determined Terrie Werner Jul 28, 2017 18:03 Lisa Thompson MD Jul 28, 2017 19:05
[2017-07-28] MEDS ORDERED: OXYBUTYNIN CHLORIDE 5 MG TAB PO ONE (18:45)
[2017-07-28] MEDS: TAMSULOSIN HCL 0.4 MG CAP PO SCH (21:24)
[2017-07-28] MEDS: SODIUM CHLORIDE 0.9% FLUSH 10 ML FLUSH IV FLUSH SCH (21:24)
[2017-07-28] MEDS: ATORVASTATIN 10 MG TAB PO SCH (21:25)
[2017-07-28 22:17] LABS: BASOPHIL # 0.1 TH/MM3 (0-0.2); EOSINOPHIL # 0.1 TH/MM3 (0-0.4); EOSINOPHIL % 0.6 % (0.0-4.0); HEMOGLOBIN 16.8 GM/DL (13.0-17.0); LYMPH % 12.9 % (9.0-44.0); LYMPHOCYTE # 1.1 TH/MM3 (1.0-4.8); MEAN CORPUSCULAR HEMOGLOBIN 29.9 PG (27.0-34.0); MEAN CORPUSCULAR HGB CONC 34.3 % (32.0-36.0); MEAN PLATELET VOLUME 8.4 FL (7.0-11.0); MONO % 6.1 % (0.0-8.0); MONOCYTE # 0.5 TH/MM3 (0-0.9); NEUT % 79.4 % (16.0-70.0); PLATELET COUNT 162 TH/MM3 (150-450); RED BLOOD COUNT 5.63 MIL/MM3 (4.50-5.90); RED CELL DISTRIBUTION WIDTH 15.1 % (11.6-17.2); WHITE BLOOD COUNT 8.8 TH/MM3 (4.0-11.0)
[2017-07-28 22:48] LABS: HEMOGLOBIN A1C 5.6 % (4.3-6.0)
[2017-07-29] VITALS (9 sets, daily range): BP systolic 176–220; BP diastolic 89–114; PULSE 60–69; RESP 16–18; TEMP 97.4–98.5; O2SAT 95–98
[2017-07-29] MEDS: ENALAPRILAT 1.25 MG/ML VIAL IV PUSH PRN (04:09)
[2017-07-29] MEDS: SODIUM CHLOR 0.9% 1000 ML INJ 1,000 ML IV SCH (05:46)
[2017-07-29] MEDS: OXYBUTYNIN CHLORIDE 5 MG TAB PO SCH ×2 (05:46→19:06)
[2017-07-29 06:10] LABS: HEMATOCRIT 46.6 % (39.0-51.0); MEAN CELL VOLUME 87.7 FL (80.0-100.0); MEAN CORPUSCULAR HEMOGLOBIN 30.1 PG (27.0-34.0); MEAN CORPUSCULAR HGB CONC 34.4 % (32.0-36.0); MEAN PLATELET VOLUME 8.4 FL (7.0-11.0); PLATELET COUNT 159 TH/MM3 (150-450); RED BLOOD COUNT 5.31 MIL/MM3 (4.50-5.90); RED CELL DISTRIBUTION WIDTH 14.8 % (11.6-17.2); WHITE BLOOD COUNT 8.6 TH/MM3 (4.0-11.0)
[2017-07-29 06:33] LABS: ALBUMIN 3.8 GM/DL (3.4-5.0); ALT (GPT) 30 U/L (12-78); AST (GOT) 22 U/L (15-37); BICARBONATE 27.5 MEQ/L (21.0-32.0); BLOOD UREA NITROGEN 20 MG/DL (7-18); CALCIUM 8.5 MG/DL (8.5-10.1); CHLORIDE 103 MEQ/L (98-107); CHOLESTEROL 135 MG/DL (120-200); CREATININE 1.23 MG/DL (0.60-1.30); GLOMERULAR FILTRATION RATE 58 ML/MIN (>89); GLUCOSE,RANDOM 88 MG/DL (74-106); SODIUM (NA) 140 MEQ/L (136-145); TRIGLYCERIDES 101 MG/DL (42-150)
[2017-07-29 06:36] LABS: ALKALINE PHOSPHATASE 82 U/L (45-117); CHOLESTEROL/ HDL RATIO 4.32 RATIO; HDL CHOLESTEROL 31.2 MG/DL (40.0-60.0); LDL CHOLESTEROL 84 MG/DL (0-99); TOTAL PROTEIN 7.6 GM/DL (6.4-8.2)
[2017-07-29] MEDS: INSULIN ASPART SUPPLEMENTAL SCALE SQ SCH ×4 (07:53→21:00)
[2017-07-29] MEDS: SODIUM CHLORIDE 0.9% FLUSH 10 ML FLUSH IV FLUSH SCH ×2 (07:55→21:00)
--- NOTE | 2017-07-29 08:05 | HHI.PR ---
Subjective Remarks f/u; CVA in no acute distress. with expressive aphasia. BP trend noted. d/w the RN at the bedside. Objective Vitals Vital Signs Date Time Temp Pulse Resp B/P (MAP) Pulse Ox O2 Delivery O2 Flow Rate FiO2 07/29/17 05:55 21 07/29/17 04:47 98.2 67 18 220/114 (149) 95 07/29/17 00:40 98.1 64 18 176/89 (118) 98 07/29/17 00:00 64 07/28/17 23:30 88 07/28/17 21:40 97.8 67 18 178/90 (119) 97 07/28/17 18:32 (144) 07/28/17 16:30 97.8 69 16 214/110 (144) 98 Room Air 07/28/17 14:24 69 17 240/128 (165) 98 Room Air 07/28/17 13:13 69 20 220/101 (140) 98 07/28/17 12:17 74 18 224/119 (154) 98 Room Air 07/28/17 12:02 78 16 220/110 (146) 98 Room Air 07/28/17 12:02 Room Air 07/28/17 11:45 220/110 (146) 07/28/17 11:30 98.1 77 237/126 (163) 07/28/17 11:17 78 32 219/133 (161) 99 I/O 07/28/17 07/28/17 07/28/17 07/29/17 07/29/17 07/29/17 07:00 15:00 23:00 07:00 15:00 23:00 Intake Total 999 ml 480 ml Output Total 1400 ml 500 ml Balance -401 ml -20 ml Intake Oral 0 ml IV Total 999 ml 480 ml Output Urine Total 1400 ml 500 ml # Bowel Movements 0 Result Diagram: 07/29/1751607/29/17516 Imaging Last Impressions Neck CTA 07/28/171123 Signed Impressions: Service Date/Time: Friday, July 28, 2017 11:29 - CONCLUSION: No cysts proximal left internal carotid with soft plaque. Stenosis 2 cm above the bifurcation is approximately 75%% to 80%%. Bowen Cameron MD FACR Head CTA 07/28/171123 Signed Impressions: Service Date/Time: Friday, July 28, 2017 11:29 - CONCLUSION: Diffuse atherosclerotic disease. This involves the anterior and posterior circulations including areas of high-grade stenosis. In particular there is a high-grade stenosis involving the proximal left M1 segment which is diffusely diseased. No embolus or thrombus appreciated. Kenton Perry Jr., MD Head CT 07/28/17 0000 Signed Impressions: Service Date/Time: Friday, July 28, 2017 11:29 - CONCLUSION: 1. No acute hemorrhage or infarction. 2. Area of encephalomalacia involving the left MCA territory posteriorly which is a new finding from the prior study. 3. Extensive chronic small vessel ischemic change. Kenton Perry Jr., MD Brain MRI 07/28/17 0000 Signed Impressions: Service Date/Time: Friday, July 28, 2017 13:49 - CONCLUSION: 1. Gyriform diffusion restriction characteristics of an acute or subacute ischemic event in the left MCA territory. 2. Cortical atrophy slightly more prominent leftward. Severe periventricular and scattered deep white matter tracts small vessel ischemic demyelination. 3. 3.9 x 2.2 cm arachnoid cyst in the anterior left middle cranial fossa. Tomi Tejada MD Objective Remarks GENERAL: This is a well-nourished, well-developed patient, in no apparent distress. CARDIOVASCULAR: Regular rate and regular rhythm without murmurs, gallops, or rubs. RESPIRATORY: Clear to auscultation. Breath sounds equal bilaterally. No wheezes , rales, or rhonchi. GASTROINTESTINAL: Abdomen soft, non-tender, nondistended. Normal, active bowel sounds MUSCULOSKELETAL: Extremities without clubbing, cyanosis, or edema. NEURO: awake and alert- with expressive aphasia. Moves all ext x4 Medications and IVs Inpatient Medications Aspirin (Aspirin Chew) 81 mg DAILY PO ; Start 07/29/17 at 09:00; Status Future Hold Aspirin (Aspirin Supp) 300 mg STAT ONCE RECTAL Last administered on 07/28/17at 12:45; Start 07/28/17 at 12:45; Stop 07/28/17 at 12:46; Status DC Atorvastatin Calcium (Lipitor) 10 mg HS PO ; Start 07/28/17 at 21:00 Dextrose (D50w (Vial) Inj) 50 ml UNSCH PRN IV PUSH HYPOGLYCEMIA-SEE COMMENTS; Start 07/28/17 at 16:15 Enalaprilat (Vasotec Inj) 1.25 mg Q4H PRN IV PUSH For SBP > 220 or DBP > 120 Last administered on 07/29/17at 04:09; Start 07/28/17 at 16:15 Enoxaparin Sodium (Lovenox Inj) 40 mg Q24H SQ ; Start 07/28/17 at 17:00; Status Future Hold Glucagon (Glucagon Inj) 1 mg UNSCH PRN OTHER HYPOGLYCEMIA-SEE COMMENTS; Start 07/28/17 at 16:15 Insulin Aspart (NovoLOG SUPPLEMENTAL SCALE) 1 ACHS SLIDING SCALE SQ ; Start 07/28/17 at 17:00 Labetalol HCl (Trandate Inj) 10 mg Q2H PRN IV PUSH For SBP > 220 or DBP > 120; Start 07/28/17 at 16:15 Metoprolol Succinate (Toprol Xl) 25 mg DAILY PO ; Start 07/29/17 at 09:00 Oxybutynin Chloride (Ditropan) 5 mg Q12H PO ; Start 07/29/17 at 06:00 Sodium Nitroprusside 50 mg/Dextrose 250 ml @ 14.94 mls/ hr TITRATE PRN IV Maintain BP goal; Start 07/28/17 at 16:15 Sodium Chloride 1,000 ml @ 70 mls/hr [id number] IV Last administered on 07/28/17at 22:47; Start 07/28/17 at 16:09 Sodium Chloride (NS Flush) 2 ml UNSCH PRN IV FLUSH FLUSH AFTER USING IV ACCESS ; Start 07/28/17 at 16:15 Tamsulosin HCl (Flomax) 0.4 mg HS PO ; Start 07/28/17 at 21:00 A/P Assessment and Plan Subacute left MCA infarct Expressive Aphasia -CT head shows no acute hemorrhage or infarction, there is an area of encephalomalacia involving the left MCA territory posteriorly. -Brain MRI shows gyriform diffusion restriction characteristic of acute or subacute ischemic event in the left MCA territory -Neck CTA significant for 70-80% stenosis left internal carotid -Head CTA reveals diffuse atherosclerotic disease involving the anterior posterior circulations including areas of high-grade stenosis, high-grade stenosis involving proximal left M1 segment which is diffusely diseased -Patient has already been evaluated by Dr. Austin - likely infarct in May. Not a TPA candidate due to increased risk of hemorrhage given likely infarct 7 weeks ago. -Consulted stroke navigator -neuro checks -Holter monitor -Continuous cardiac monitoring -Consulted rehabilitation medicine -continue aspirin -Statin daily once able to swallow -PT/OT/ST eval/tx -NPO for now, IVF ordered -monitor blood sugars -fall, aspiration and seizure precautions Hypertension, uncontrolled -allow permissive HTN -IV Vasotec 1.25mg q 4h or Labetalol 10mg IV q2h prn SBP>220 or DBP>120 PVD -70-80% stenosis left internal carotid -Dr. Ellsworth consulted CAD s/p CABG -Patient has no cardiac complaints at this time -continue aspirin -resume home metoprolol 25mg daily once cleared to swallow -Continuous cardiac monitoring ?JASIEL on suspected CKD -improved. -Avoid nephrotoxic agents -Continue to monitor renal indices Borderline DM -Obtain hemoglobin A1c -accucheck and insulin sliding scale Macroscopic hematuria BPH -Cavazos placed with gross hematuria -resumed home dose of Flomax -UA unremarkable -avoid anticoagulation -Ditropan for bladder spasms -Consulted Urology. mild hypokalemia - will replace. DVT prophylaxis -Avoid anticoagulation at this time due to hematuria -Bilateral SCD/ZENIA hose Discharge Planning work-up in progress. Miguel Umanzor MD Jul 29, 2017 08:05
[2017-07-29] MEDS ORDERED: ASPIRIN 81 MG CHEW TAB PO SCH (09:00)
[2017-07-29 09:24] LABS: BANDS 3 % (0-6); LYMPHOCYTES 16 % (9-44); MONOCYTES 2 % (0-8); POLYS (SEG NEUTROPHILS) 78 % (16-70)
[2017-07-29 09:25] LABS: OVALOCYTES 1+ (NORMAL)
[2017-07-29] MEDS: METOPROLOL SUCCINATE 25 MG EXTENDED RELEASE TAB PO SCH (09:51)
--- NOTE | 2017-07-29 13:47 | PD.CONS ---
HPI Service Urology Consult Requested By Reason for Consult hematuria Primary Care Physician Unknown Diagnosis: History of Present Illness 72yo male with history of HTN, CAD, CABG and recent Stroke seen in consultation for hematuria. Patient has a moore catheter in place with blood noted in the the urine. No clots, draining well. No prior history of hematuria. Unclear if any history of BPH or voiding symptoms. Patient currently aphasic. Review of Systems ROS Limitations: Clinical Condition, Altered Mental Status Constitutional: DENIES: Fever Eyes: DENIES: Diplopia Ears, nose, mouth, throat: DENIES: Hearing loss Respiratory: DENIES: Cough Cardiovascular: DENIES: Chest pain Gastrointestinal: DENIES: Abdominal pain Genitourinary: COMPLAINS OF: Hematuria Neurologic: COMPLAINS OF: Speech Problems Psychiatric: COMPLAINS OF: Confusion Except as stated in HPI: all other systems reviewed are Neg Past Family Social History Past Medical History Hypertension Coronary artery disease status post CABG Dyslipidemia Borderline diabetes Brain tumor followed by Dr. Flannery Past Surgical History CABG x 4 Reported Medications Reported Meds & Active Scripts Active Reported Tamsulosin (Tamsulosin HCl) 0.4 Mg Cap 0.4 Mg PO HS Metoprolol Succinate ER 24 HR (Metoprolol Succinate) 25 Mg Tab 25 Mg PO DAILY Allergies: Coded Allergies: No Known Allergies (Verified , 01/14/14) Active Ordered Medications Current Medications Medications (Trade) Dose Ordered Sig/Malena Route Start Time Stop Time Status Last Admin (NS Flush) 2 ml BID IV FLUSH 07/28/17 21:00 07/31/17 09:58 (NS Flush) 2 ml UNSCH PRN IV FLUSH 07/28/17 16:15 (Vasotec Inj) 1.25 mg Q4H PRN IV PUSH 07/28/17 16:15 07/31/17 11:23 (Trandate Inj) 10 mg Q2H PRN IV PUSH 07/28/17 16:15 Sodium Nitroprusside 50 mg/Dextrose 250 ml @ 14.94 mls/ hr TITRATE PRN IV 07/28/17 16:15 (Lipitor) 10 mg HS PO 07/28/17 21:00 07/30/17 21:25 (Lovenox Inj) 40 mg Q24H SQ 07/28/17 17:00 Future Hold (Toprol Xl) 25 mg DAILY PO 07/29/17 09:00 07/30/17 09:04 (Flomax) 0.4 mg HS PO 07/28/17 21:00 07/30/17 21:29 (D50w (Vial) Inj) 50 ml UNSCH PRN IV PUSH 07/28/17 16:15 (Glucagon Inj) 1 mg UNSCH PRN OTHER 07/28/17 16:15 (NovoLOG SUPPLEMENTAL SCALE) 1 ACHS SLIDING SCALE SQ 07/28/17 17:00 (Ditropan) 5 mg Q12H PO 07/29/17 06:00 07/31/17 06:20 Potassium Chloride/Sodium Chloride 1,000 ml @ 70 mls/hr [id number] IV 07/29/17 16:09 Future Hold 07/29/17 22:05 (Ecotrin Ec) 325 mg DAILY PO 07/29/17 16:00 07/30/17 09:04 (Plavix) 75 mg DAILY PO 07/30/17 11:00 07/30/17 11:48 Sodium Chloride 1,000 ml @ 75 mls/hr [id number] IV 07/30/17 09:43 Future Hold (Norvasc) 10 mg DAILY PO 08/01/17 09:00 (Pill Splitter) 1 ea UNSCH PRN OTHER 07/31/17 10:30 Family History Son, sudden cardiac No urological history Social History Per review of the medical record, patient smokes 1 pack per day, drinks alcohol occasionally and does not have any drug use history. Physical Exam Vital Signs Date Time Temp Pulse Resp B/P (MAP) Pulse Ox O2 Delivery O2 Flow Rate FiO2 07/29/17 08:00 97.4 60 16 195/103 (133) 97 07/29/17 05:55 21 07/29/17 04:47 98.2 67 18 220/114 (149) 95 07/29/17 00:40 98.1 64 18 176/89 (118) 98 07/29/17 00:00 64 07/28/17 23:30 88 07/28/17 21:40 97.8 67 18 178/90 (119) 97 07/28/17 18:32 (144) 07/28/17 16:30 97.8 69 16 214/110 (144) 98 Room Air 07/28/17 14:24 69 17 240/128 (165) 98 Room Air Physical Exam GENERAL: This is a well-nourished, well-developed patient, in no apparent distress. SKIN: No rashes, ecchymoses or lesions. Cool and dry. HEAD: Atraumatic. Normocephalic. EYES: Extraocular motions intact. No scleral icterus. No injection or drainage. ENT: Nose without bleeding, purulent drainage. Airway patent. NECK: Trachea midline. No JVD or lymphadenopathy. CARDIOVASCULAR: Normal pulse RESPIRATORY: Nonlabored. GASTROINTESTINAL: Abdomen soft, non-tender, nondistended. GENITOURINARY: Moore in place, light red urine noted, no clots MUSCULOSKELETAL: Extremities without clubbing, cyanosis, or edema. NEUROLOGICAL: Awake, difficult to respond, aphasic. Lab results reviewed: Yes Laboratory Tests Test 07/28/17 21:50 07/29/17 05:17 White Blood Count 8.8 8.6 Red Blood Count 5.63 5.31 Hemoglobin 16.8 16.0 Hematocrit 49.0 46.6 Mean Corpuscular Volume 87.0 87.7 Mean Corpuscular Hemoglobin 29.9 30.1 Mean Corpuscular Hemoglobin Concent 34.3 34.4 Red Cell Distribution Width 15.1 14.8 Platelet Count 162 159 Mean Platelet Volume 8.4 8.4 Neutrophils (%) (Auto) 79.4 Lymphocytes (%) (Auto) 12.9 Monocytes (%) (Auto) 6.1 Eosinophils (%) (Auto) 0.6 Basophils (%) (Auto) 1.0 Neutrophils # (Auto) 7.0 Lymphocytes # (Auto) 1.1 Monocytes # (Auto) 0.5 Eosinophils # (Auto) 0.1 Basophils # (Auto) 0.1 CBC Comment DIFF FINAL AUTO DIFF Differential Comment FINAL DIFF MANUAL Differential Total Cells Counted 100 Neutrophils % (Manual) 78 Band Neutrophils % 3 Lymphocytes % 16 Monocytes % 2 Eosinophils % 1 Neutrophils # (Manual) 7.0 Platelet Estimate NORMAL Platelet Morphology Comment NORMAL Ovalocytes 1+ Blood Urea Nitrogen 20 Creatinine 1.23 Random Glucose 88 Total Protein 7.6 Albumin 3.8 Calcium Level 8.5 Alkaline Phosphatase 82 Aspartate Amino Transf (AST/SGOT) 22 Alanine Aminotransferase (ALT/SGPT) 30 Total Bilirubin 1.0 Sodium Level 140 Potassium Level 3.4 Chloride Level 103 Carbon Dioxide Level 27.5 Anion Gap 10 Estimat Glomerular Filtration Rate 58 Triglycerides Level 101 Cholesterol Level 135 LDL Cholesterol 84 HDL Cholesterol 31.2 Cholesterol/HDL Ratio 4.32 Result Diagram: 07/29/1717 07/29/17 0517 Personally reviewed images: Yes Imaging Last Impressions Neck CTA 07/28/174 Signed Impressions: Service Date/Time: Friday, July 28, 2017 11:29 - CONCLUSION: No cysts proximal left internal carotid with soft plaque. Stenosis 2 cm above the bifurcation is approximately 75%% to 80%%. Bowen Cameron MD FACR Head CTA 07/28/17 1124 Signed Impressions: Service Date/Time: Friday, July 28, 2017 11:29 - CONCLUSION: Diffuse atherosclerotic disease. This involves the anterior and posterior circulations including areas of high-grade stenosis. In particular there is a high-grade stenosis involving the proximal left M1 segment which is diffusely diseased. No embolus or thrombus appreciated. Kenton Perry Jr., MD Head CT 07/28/17 0000 Signed Impressions: Service Date/Time: Friday, July 28, 2017 11:29 - CONCLUSION: 1. No acute hemorrhage or infarction. 2. Area of encephalomalacia involving the left MCA territory posteriorly which is a new finding from the prior study. 3. Extensive chronic small vessel ischemic change. Kenton Perry Jr., MD Brain MRI 07/28/17 0000 Signed Impressions: Service Date/Time: Friday, July 28, 2017 13:49 - CONCLUSION: 1. Gyriform diffusion restriction characteristics of an acute or subacute ischemic event in the left MCA territory. 2. Cortical atrophy slightly more prominent leftward. Severe periventricular and scattered deep white matter tracts small vessel ischemic demyelination. 3. 3.9 x 2.2 cm arachnoid cyst in the anterior left middle cranial fossa. Tomi Tejada MD Assessment and Plan Problem List: (1) Hematuria ICD Code: R31.9 - Hematuria, unspecified Assessment and Plan Hematuria likely moore trauma related vs BPH Catheter may be removed with voiding trial If unable to void, may replace catheter Follow-up with Urology for hematuria evaluation Please call with questions Benito Cabrera MD Jul 29, 2017 13:47
--- NOTE | 2017-07-29 15:37 | ECHRPT ---
Indication: CVA/TIA CONCLUSIONS The left ventricular systolic function is hyperdynamic with an estimated ejection fraction in the ra nge of 65- 70%. Normal left ventricular size. Moderate concentric left ventricular hypertrophy. No regional wall motion abnormalities are present. Mild thickening of the mitral valve leaflets. Mitral annular calcification is present. Diffuse calcification of the aortic valve. Mild aortic valve stenosis. Aortic valve area is 1.5 cm. Aortic valve mean gradient is 11 mmHg. BP: / HR: Rhythm: Sinus MEASUREMENTS (Male / Female) Normal Values Technical Quality:Technically difficult study 2D ECHO LV Diastolic Diameter PLAX 3.0 cm 4.2 - 5.9 / 3.9 - 5.3 cm LV Systolic Diameter PLAX 1.8 cm IVS Diastolic Thickness 1.7 cm 0.6 - 1.0 / 0.6 - 0.9 cm LVPW Diastolic Thickness 1.5 cm 0.6 - 1.0 / 0.6 - 0.9 cm LV Relative Wall Thickness 1.1 LVOT Diameter 2.1 cm LA Systolic Diameter LX 3.5 cm 3.0 - 4.0 / 2.7 - 3.8 cm M-MODE Aortic Root Diameter MM 2.2 cm LA Systolic Diameter MM 3.1 cm LA Ao Ratio MM 1.4 AV Cusp Separation MM 1.1 cm DOPPLER AV Peak Velocity 222.0 cm/s AV Peak Gradient 19.7 mmHg AV Mean Gradient 11.0 mmHg AV Velocity Time Integral 36.2 cm LVOT Peak Velocity 93.2 cm/s LVOT Peak Gradient 3.5 mmHg LVOT Velocity Time Integral 15.5 cm AV Area Cont Eq vti 1.5 cm AV Area Cont Eq pk 1.5 cm MV Area PHT 3.0 cm Mitral E Point Velocity 63.2 cm/s Mitral A Point Velocity 97.7 cm/s Mitral E to A Ratio 0.6 LV E' Lateral Velocity 5.4 cm/s Mitral E to LV E' Lateral Ratio 11.8 LV E' Septal Velocity 4.3 cm/s Mitral E to LV E' Septal Ratio 14.7 TR Peak Velocity 181.0 cm/s TR Peak Gradient 13.1 mmHg Right Atrial Pressure 10.0 mmHg Pulmonary Artery Systolic Pressu 23.1 mmHg Right Ventricular Systolic Press 23.1 mmHg PV Peak Velocity 88.2 cm/s PV Peak Gradient 3.1 mmHg FINDINGS LEFT VENTRICLE The left ventricular systolic function is hyperdynamic with an estimated ejection fraction in the ra nge of 65- 70%. Normal left ventricular size. Moderate concentric left ventricular hypertrophy. No regional wall motion abnormalities are present. Doppler parameters are consistent with impaired left ventricular relaxtion (grade 1 diastolic dysfun ction). MITRAL VALVE Mild thickening of the mitral valve leaflets. Mitral annular calcification is present. AORTIC VALVE Trileaflet aortic valve. Diffuse calcification of the aortic valve. Mild aortic valve stenosis. Aortic valve area is 1.5 cm. Aortic valve mean gradient is 11 mmHg. TRICUSPID VALVE Structurally normal tricuspid valve. No tricuspid valve stenosis or regurgitation. PULMONARY VALVE No pulmonary valve regurgitation or stenosis. VESSELS The inferior vena cava is normal in size. PERICARDIUM No pericardial effusion. Gilles Plasencia MD (Electronically Signed) Final Date:29 July 2017 15:35
--- NOTE | 2017-07-29 15:40 | HHI.PR ---
Subjective Remarks sr Objective Vital Signs Date Time Temp Pulse Resp B/P (MAP) Pulse Ox O2 Delivery O2 Flow Rate FiO2 07/29/17 12:00 98.2 62 18 202/104 (136) 96 07/29/17 08:00 97.4 60 16 195/103 (133) 97 07/29/17 05:55 21 07/29/17 04:47 98.2 67 18 220/114 (149) 95 07/29/17 00:40 98.1 64 18 176/89 (118) 98 07/29/17 00:00 64 07/28/17 23:30 88 07/28/17 21:40 97.8 67 18 178/90 (119) 97 07/28/17 18:32 (144) 07/28/17 16:30 97.8 69 16 214/110 (144) 98 Room Air I/O 07/28/17 07/28/17 07/28/17 07/29/17 07/29/17 07/29/17 07:00 15:00 23:00 07:00 15:00 23:00 Intake Total 999 ml 480 ml Output Total 1400 ml 500 ml Balance -401 ml -20 ml Intake Oral 0 ml IV Total 999 ml 480 ml Output Urine Total 1400 ml 500 ml # Bowel Movements 0 Result Diagram: 07/29/1751607/29/17 05 Objective Remarks awake alert mute moves all well Assessment and Plan Assessment and Plan imp left mca cva with 70% left mca dz basilar dz severe and 80% left ICA STENOSIS DAUGHTER TELLS ME now some friends saw event also 2 weeks aphasia transient he was not taking asa acc to her as bottle full at home plan is eventual left ica cea and asa for now ldl nl but on statin with all the cvd hob ok 45degrees i dw urology ok to dc moore with hematuria he never really needed one and er should be notified to hold on foleys down there unless absolutely necessary keep bp up but not over 200/100 echo ok Angel Austin MD Jul 29, 2017 15:40
[2017-07-29] MEDS ORDERED: POTASSIUM CHLORIDE INJ 20 MEQ in SODIUM CHLOR 0.9% 1000 ML INJ 1,000 ML IV SCH (16:09)
[2017-07-29] MEDS: ASPIRIN EC 325 MG TABEC PO SCH (19:06)
[2017-07-29] MEDS: ATORVASTATIN 10 MG TAB PO SCH (21:53)
[2017-07-29] MEDS: TAMSULOSIN HCL 0.4 MG CAP PO SCH (21:53)
[2017-07-29] MEDS: NS + KCL 20 MEQ INJ 1,000 ML IV SCH (22:05)
--- NOTE | 2017-07-29 23:29 | EKG ---
Date Performed: 07/28/2017 Time Performed: 11:50:03 PTAGE: 72 years EKG: Sinus rhythm MARKED LEFT AXIS DEVIATION ST DEVIATION AND MODERATE T-WAVE ABNORMALITY, CONSIDER LATERAL ISCHEMIA A BNORMAL ECG Since the prior tracing, there has been no significant change DOCTOR: Flash Denton Interpretating Date/Time 07/29/2017 23:28:10
--- NOTE | 2017-07-29 23:57 | MB ---
cc: Raina Ellsworth MD DATE OF CONSULT: 07/28/2017 CONSULTING PHYSICIAN: Raina Ellsworth MD, vascular surgery. REASON FOR CONSULTATION: Left internal carotid artery stenosis, recurrent stroke. HISTORY OF PRESENT DISEASE: This unfortunate 72-year-old gentleman sustained a left hemispheric stroke in 2014. He developed initially slurred speech and then total aphasia which then improved. The patient was able to mouth some words. This time the patient comes with recurrent symptoms of TIA and some weakness. He became abruptly again aphasic and did not follow commands. He is currently in workup. PAST MEDICAL HISTORY: That of coronary artery disease and hypertension, previous stroke. SURGICAL HISTORY: That of tonsillectomy, coronary artery bypass surgery. SOCIAL HISTORY: The patient drinks occasionally, smokes one pack a day of cigarettes I guess still. He was able to mouth words before this event somewhat. ALLERGIES: NO ALLERGIES. PHYSICAL EXAMINATION: GENERAL: Reveals a 72-year-old gentleman. HEENT: Normocephalic. No trauma to the head. Pupils equal and reactive. Extraocular muscles intact. The patient has slight facial droop but this might be old. NECK: Bilateral carotid pulses and actually I do not hear any bruits. CHEST: Bilateral breath sounds. HEART: Regular rhythm. ABDOMEN: Soft, no rebound, no guarding, no masses. EXTREMITIES: The patient's bilateral femoral, popliteal, dorsal pedis, posterior well pulses. NEUROLOGIC: The patient is dysarthric. Able to mouth some simple words but that is about it. Motorically, upper extremities have bilateral equal strength but there is a drift of the left arm. Lower extremities are equal bilateral. Bilateral deep tendon reflexes are normal. Neyr Coma Scale is very hard to paper pattern inspector. The patient is obviously following commands so technically he should be 15 but he is not following all the commands and clearly due to dysarthria, unable to be understood. IMPRESSION AND RECOMMENDATIONS: I reviewed laboratory and diagnostic procedures. 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 Now he has new stroke resulting in near total aphasia which is again, slowly improving. While he has several stenotic areas of the middle cerebral artery and anterior communicating artery, intracranially he has about 80% stenosis of left internal carotid artery. Based on this, I would recommend that the patient go to rehab, be actively engaged and I will see him in about 3 or 4 weeks at which point he might be a candidate for left carotid endarterectomy. In absence of other prohibiting comorbidities, patient with an 80% stenosis and symptoms should definitely have surgery to prevent further strokes. On the other hand if the patient is in the general condition that prohibits surgery, then there is that. Thank you very much for the referral. I will follow the patient and see him in a few weeks in my office. Raina Ellsworth MD SJ/rt , 03:07 PM , 11:56 PM
[2017-07-30] VITALS (11 sets, daily range): BP systolic 147–228; BP diastolic 86–139; PULSE 65–100; RESP 18–20; TEMP 97.4–98.9; O2SAT 94–98
[2017-07-30] MEDS: NS + KCL 20 MEQ INJ 1,000 ML IV SCH ×2 (06:27→20:45)
[2017-07-30] MEDS: OXYBUTYNIN CHLORIDE 5 MG TAB PO SCH ×2 (06:31→19:04)
[2017-07-30] MEDS: INSULIN ASPART SUPPLEMENTAL SCALE SQ SCH ×4 (08:00→21:00)
[2017-07-30] MEDS: ASPIRIN EC 325 MG TABEC PO SCH (09:04)
[2017-07-30] MEDS: SODIUM CHLORIDE 0.9% FLUSH 10 ML FLUSH IV FLUSH SCH ×2 (09:04→21:26)
[2017-07-30] MEDS: METOPROLOL SUCCINATE 25 MG EXTENDED RELEASE TAB PO SCH (09:04)
--- NOTE | 2017-07-30 09:27 | HHI.PR ---
Subjective Remarks in no acute distress. still with aphasia. BP trend noted. d/w the RN. Objective Vitals Vital Signs Date Time Temp Pulse Resp B/P (MAP) Pulse Ox O2 Delivery O2 Flow Rate FiO2 07/30/17 08:00 97.7 65 18 217/121 (153) 98 219/125 (156) 07/30/17 05:51 66 07/30/17 04:00 97.6 91 18 147/86 (106) 97 07/30/17 01:00 73 07/30/17 00:00 98.9 100 20 170/86 (114) 97 07/29/17 23:00 63 07/29/17 21:25 98 21.00 07/29/17 20:00 97.9 64 18 203/107 (139) 96 205/108 (140) 07/29/17 19:11 98.5 69 18 193/101 (131) 98 07/29/17 12:00 98.2 62 18 202/104 (136) 96 I/O 07/29/17 07/29/17 07/29/17 07/30/17 07/30/17 07/30/17 06:59 14:59 22:59 06:59 14:59 22:59 Intake Total 480 ml 960 ml Output Total 1900 ml 2500 ml Balance -1420 ml -1540 ml Intake Oral 960 ml IV Total 480 ml Output Urine Total 1900 ml 2500 ml # Voids 1 Result Diagram: 07/29/17 0517 07/29/17 0517 Imaging Last Impressions Neck CTA 07/28/17 1124 Signed Impressions: Service Date/Time: Friday, July 28, 2017 11:29 - CONCLUSION: No cysts proximal left internal carotid with soft plaque. Stenosis 2 cm above the bifurcation is approximately 75%% to 80%%. Bowen Cameron MD FACR Head CTA 07/28/17 1124 Signed Impressions: Service Date/Time: Friday, July 28, 2017 11:29 - CONCLUSION: Diffuse atherosclerotic disease. This involves the anterior and posterior circulations including areas of high-grade stenosis. In particular there is a high-grade stenosis involving the proximal left M1 segment which is diffusely diseased. No embolus or thrombus appreciated. Kenton Perry Jr., MD Head CT 07/28/17 0000 Signed Impressions: Service Date/Time: Friday, July 28, 2017 11:29 - CONCLUSION: 1. No acute hemorrhage or infarction. 2. Area of encephalomalacia involving the left MCA territory posteriorly which is a new finding from the prior study. 3. Extensive chronic small vessel ischemic change. Kenton Perry Jr., MD Brain MRI 07/28/17 0000 Signed Impressions: Service Date/Time: Friday, July 28, 2017 13:49 - CONCLUSION: 1. Gyriform diffusion restriction characteristics of an acute or subacute ischemic event in the left MCA territory. 2. Cortical atrophy slightly more prominent leftward. Severe periventricular and scattered deep white matter tracts small vessel ischemic demyelination. 3. 3.9 x 2.2 cm arachnoid cyst in the anterior left middle cranial fossa. Tomi Tejada MD Objective Remarks GENERAL: This is a well-nourished, well-developed patient, in no apparent distress. CARDIOVASCULAR: Regular rate and regular rhythm without murmurs, gallops, or rubs. RESPIRATORY: Clear to auscultation. Breath sounds equal bilaterally. No wheezes , rales, or rhonchi. GASTROINTESTINAL: Abdomen soft, non-tender, nondistended. Normal, active bowel sounds MUSCULOSKELETAL: Extremities without clubbing, cyanosis, or edema. NEURO: awake and alert- with expressive aphasia. Moves all ext x4 Medications and IVs Inpatient Medications Aspirin (Aspirin Chew) 81 mg DAILY PO ; Start 07/29/17 at 09:00; Stop 07/29/17 at 15:43; Status DC Aspirin (Aspirin Supp) 300 mg STAT ONCE RECTAL Last administered on 07/28/17at 12:45; Start 07/28/17 at 12:45; Stop 07/28/17 at 12:46; Status DC Aspirin (Ecotrin Ec) 325 mg DAILY PO Last administered on 07/30/17at 09:04; Start 07/29/17 at 16:00 Atorvastatin Calcium (Lipitor) 10 mg HS PO Last administered on 07/29/17at 21:53 ; Start 07/28/17 at 21:00 Dextrose (D50w (Vial) Inj) 50 ml UNSCH PRN IV PUSH HYPOGLYCEMIA-SEE COMMENTS; Start 07/28/17 at 16:15 Enalaprilat (Vasotec Inj) 1.25 mg Q4H PRN IV PUSH For SBP > 220 or DBP > 120 Last administered on 07/29/17at 04:09; Start 07/28/17 at 16:15 Enoxaparin Sodium (Lovenox Inj) 40 mg Q24H SQ ; Start 07/28/17 at 17:00; Status Future Hold Glucagon (Glucagon Inj) 1 mg UNSCH PRN OTHER HYPOGLYCEMIA-SEE COMMENTS; Start 07/28/17 at 16:15 Insulin Aspart (NovoLOG SUPPLEMENTAL SCALE) 1 ACHS SLIDING SCALE SQ ; Start 07/28/17 at 17:00 Labetalol HCl (Trandate Inj) 10 mg Q2H PRN IV PUSH For SBP > 220 or DBP > 120; Start 07/28/17 at 16:15 Metoprolol Succinate (Toprol Xl) 25 mg DAILY PO Last administered on 07/30/17at 09:04; Start 07/29/17 at 09:00 Oxybutynin Chloride (Ditropan) 5 mg Q12H PO Last administered on 07/30/17at 06: 31; Start 07/29/17 at 06:00 Potassium Chloride/Sodium Chloride 1,000 ml @ 70 mls/hr [id number] IV Last administered on 07/29/17at 22:05; Start 07/29/17 at 16:09 Sodium Nitroprusside 50 mg/Dextrose 250 ml @ 14.94 mls/ hr TITRATE PRN IV Maintain BP goal; Start 07/28/17 at 16:15 Sodium Chloride 1,000 ml @ 70 mls/hr [id number] IV Last administered on 07/28/17at 22:47; Start 07/28/17 at 16:09; Stop 07/29/17 at 08:06; Status DC Sodium Chloride (NS Flush) 2 ml UNSCH PRN IV FLUSH FLUSH AFTER USING IV ACCESS ; Start 07/28/17 at 16:15 Tamsulosin HCl (Flomax) 0.4 mg HS PO Last administered on 07/29/17at 21:53; Start 07/28/17 at 21:00 A/P Assessment and Plan Subacute left MCA infarct Expressive Aphasia -CT head shows no acute hemorrhage or infarction, there is an area of encephalomalacia involving the left MCA territory posteriorly. -Brain MRI shows gyriform diffusion restriction characteristic of acute or subacute ischemic event in the left MCA territory -Neck CTA significant for 70-80% stenosis left internal carotid -Head CTA reveals diffuse atherosclerotic disease involving the anterior posterior circulations including areas of high-grade stenosis, high-grade stenosis involving proximal left M1 segment which is diffusely diseased -echo with EF 65% and no regional wall motion abnormalities. -Patient has already been evaluated by Dr. Austin - likely infarct in May. Not a TPA candidate due to increased risk of hemorrhage given likely infarct 7 weeks ago. -Consulted stroke navigator -neuro checks -Holter monitor -Continuous cardiac monitoring -Consulted rehabilitation medicine -continue aspirin -Statin daily once able to swallow -PT/OT/ST eval/tx -monitor blood sugars -fall, aspiration and seizure precautions Hypertension, uncontrolled -started on metoprolol -will add norvasc -continue Vasotec prn -will monitor and adjust the regimen as needed. PVD -70-80% stenosis left internal carotid -Dr. Ellsworth consulted; plan for f/u as outpatient. CAD s/p CABG -Patient has no cardiac complaints at this time -continue aspirin -resume home metoprolol 25mg daily . -Continuous cardiac monitoring ?JASIEL on suspected CKD -improved. -Avoid nephrotoxic agents -Continue to monitor renal indices Borderline DM - hemoglobin A1c 5.6 -accucheck and insulin sliding scale Macroscopic hematuria BPH -resumed home dose of Flomax -UA unremarkable -avoid anticoagulation -Ditropan for bladder spasms -Urology consult appreciated. mild hypokalemia - replaced. erythema over the right upper extremity; check venous doppler. DVT prophylaxis -Avoid anticoagulation at this time due to hematuria -Bilateral SCD/ZENIA hose Discharge Planning dc to rehab within the next 48 hrs if stable. Miguel Umanzor MD Jul 30, 2017 09:27
[2017-07-30] MEDS ORDERED: amLODIPine BESYLATE 5 MG TAB PO SCH (09:30)
--- NOTE | 2017-07-30 09:40 | HHI.PR ---
Subjective Remarks sr Objective Vital Signs Date Time Temp Pulse Resp B/P (MAP) Pulse Ox O2 Delivery O2 Flow Rate FiO2 07/30/17 08:00 97.7 65 18 217/121 (153) 98 219/125 (156) 07/30/17 05:51 66 07/30/17 04:00 97.6 91 18 147/86 (106) 97 07/30/17 01:00 73 07/30/17 00:00 98.9 100 20 170/86 (114) 97 07/29/17 23:00 63 07/29/17 21:25 98 21.00 07/29/17 20:00 97.9 64 18 203/107 (139) 96 205/108 (140) 07/29/17 19:11 98.5 69 18 193/101 (131) 98 07/29/17 12:00 98.2 62 18 202/104 (136) 96 I/O 07/29/17 07/29/17 07/29/17 07/30/17 07/30/17 07/30/17 07:00 15:00 23:00 07:00 15:00 23:00 Intake Total 480 ml 960 ml Output Total 500 ml 2500 ml Balance -20 ml -1540 ml Intake Oral 960 ml IV Total 480 ml Output Urine Total 500 ml 2500 ml # Voids 1 Result Diagram: 07/29/17 0517 07/29/17 0517 Objective Remarks awake alert makes few sounds tries to follow commands moves all well Assessment and Plan Assessment and Plan imp left mca cva with 70% left mca dz basilar dz severe and 80% left ICA STENOSIS DAUGHTER TELLS ME now some friends saw event also 2 weeks aphasia transient he was not taking asa acc to her as bottle full at home plan is eventual left ica cea and asa for now ldl nl but on statin with all the cvd hob ok 45degrees i dw urology ok to dc moore with hematuria he never really needed one and er should be notified to hold on foleys down there unless absolutely necessary keep bp up but not over 200/100 echo ok 07/30/17 looks better today unstable cvd many tia and cva last 2 months was not on asa at home will do plavix and asa for now echo neg fu Angel Pino MD Jul 30, 2017 09:40
[2017-07-30] MEDS: SODIUM CHLOR 0.9% 1000 ML INJ 1,000 ML IV SCH ×2 (09:43→23:03)
--- NOTE | 2017-07-30 11:41 | RADRPT ---
EXAM DATE/TIME: 07/30/2017 10:50 [place] COMPARISON: No previous studies available for comparison. INDICATIONS : Right arm swelling. MEDICAL HISTORY : Hypercholesterolemia. Hypertension. CAD. CVA. SURGICAL HISTORY : Tonsillectomy. CABG ENCOUNTER: Initial ACUITY: 1 day PAIN SCORE: 0/10 LOCATION: Right arm. FINDINGS: There is spontaneous flow documented in the brachial, basilic, cephalic, axillary, and subclavian vei ns. The vessels are compressible and augmentation response is documented. No filling defects are se en. The flow is phasic with respiration. Direction of flow in the jugular vein is caudal. CONCLUSION: No evidence of deep or superficial venous thrombosis. Gildardo Berg MD on July 30, 2017 at 11:38 Board Certified Radiologist. This report was verified electronically.
[2017-07-30] MEDS: CLOPIDOGREL 75 MG TAB PO SCH (11:48)
[2017-07-30] MEDS: ENALAPRILAT 1.25 MG/ML VIAL IV PUSH PRN (21:24)
[2017-07-30] MEDS: ATORVASTATIN 10 MG TAB PO SCH (21:25)
[2017-07-30] MEDS: TAMSULOSIN HCL 0.4 MG CAP PO SCH (21:29)
[2017-07-31] VITALS (12 sets, daily range): BP systolic 140–221; BP diastolic 82–124; PULSE 58–84; RESP 18–20; TEMP 97.1–98.9; O2SAT 94–98
[2017-07-31] MEDS: OXYBUTYNIN CHLORIDE 5 MG TAB PO SCH ×2 (06:20→18:08)
--- NOTE | 2017-07-31 07:16 | HHI.PR ---
Subjective Remarks sr Objective Vital Signs Date Time Temp Pulse Resp B/P (MAP) Pulse Ox O2 Delivery O2 Flow Rate FiO2 07/31/17 04:12 69 07/31/17 04:00 98.9 67 20 195/103 (133) 94 07/31/17 00:12 60 07/31/17 00:00 97.1 84 18 140/82 (101) 98 07/30/17 23:00 67 07/30/17 22:17 95 07/30/17 20:00 97.4 67 18 228/139 (168) 96 226/134 (164) 07/30/17 16:00 67 07/30/17 16:00 98.3 69 18 193/111 (138) 95 07/30/17 12:19 97.6 72 18 222/125 (157) 94 Automatic Cuff 07/30/17 12:00 71 07/30/17 08:00 97.7 65 18 217/121 (153) 98 219/125 (156) I/O 07/30/17 07/30/17 07/30/17 07/31/17 07/31/17 07/31/17 07:00 15:00 23:00 07:00 15:00 23:00 Output Total 200 ml 500 ml Balance -200 ml -500 ml Output Urine Total 200 ml 500 ml # Voids 1 Result Diagram: 07/29/1751607/29/17 0517 Objective Remarks awake alert makes few sounds tries to follow commands moves all well up and walked self to br r droop can count fingers once Assessment and Plan Assessment and Plan imp left mca cva with 70% left mca dz basilar dz severe and 80% left ICA STENOSIS DAUGHTER TELLS ME now some friends saw event also 2 weeks aphasia transient he was not taking asa acc to her as bottle full at home plan is eventual left ica cea and asa for now ldl nl but on statin with all the cvd hob ok 45degrees i dw urology ok to dc moore with hematuria he never really needed one and er should be notified to hold on foleys down there unless absolutely necessary keep bp up but not over 200/100 echo ok 07/30/17 looks better today unstable cvd many tia and cva last 2 months was not on asa at home will do plavix and asa for now echo neg fu holter 07/31/17 on statin and plavix and asa ok to run bp 140-160/ now to do cea in 3 weeks acc to vascular could dc on reduced 81 asa dose when bp stable for a day in range above Angel Austin MD Jul 31, 2017 07:16
[2017-07-31] MEDS: INSULIN ASPART SUPPLEMENTAL SCALE SQ SCH ×4 (08:00→21:00)
[2017-07-31] MEDS: ASPIRIN EC 325 MG TABEC PO SCH (09:00)
[2017-07-31] MEDS: METOPROLOL SUCCINATE 25 MG EXTENDED RELEASE TAB PO SCH (09:00)
[2017-07-31] MEDS: CLOPIDOGREL 75 MG TAB PO SCH (09:00)
--- NOTE | 2017-07-31 09:55 | HHI.PR ---
Subjective Remarks in no acute distress. looks comfortable. BP trend noted. Objective Vitals Vital Signs Date Time Temp Pulse Resp B/P (MAP) Pulse Ox O2 Delivery O2 Flow Rate FiO2 07/31/17 08:37 97.5 66 18 166/93 (117) 97 07/31/17 04:12 69 07/31/17 04:00 98.9 67 20 195/103 (133) 94 07/31/17 00:12 60 07/31/17 00:00 97.1 84 18 140/82 (101) 98 07/30/17 23:00 67 07/30/17 22:17 95 07/30/17 20:00 97.4 67 18 228/139 (168) 96 226/134 (164) 07/30/17 16:00 67 07/30/17 16:00 98.3 69 18 193/111 (138) 95 07/30/17 12:19 97.6 72 18 222/125 (157) 94 Automatic Cuff 07/30/17 12:00 71 I/O 07/30/17 07/30/17 07/30/17 07/31/17 07/31/17 07/31/17 07:00 15:00 23:00 07:00 15:00 23:00 Output Total 200 ml 500 ml Balance -200 ml -500 ml Output Urine Total 200 ml 500 ml # Voids 1 Result Diagram: 07/29/17 0517 07/29/17 0517 Imaging Last Impressions Upper Extremity Ultrasound 07/30/17 0957 Signed Impressions: Service Date/Time: Sunday, July 30, 2017 10:50 - CONCLUSION: No evidence of deep or superficial venous thrombosis. Gildardo Berg MD Neck CTA 07/28/17 1124 Signed Impressions: Service Date/Time: Friday, July 28, 2017 11:29 - CONCLUSION: No cysts proximal left internal carotid with soft plaque. Stenosis 2 cm above the bifurcation is approximately 75%% to 80%%. Bowen Cameron MD FACR Head CTA 07/28/17 1124 Signed Impressions: Service Date/Time: Friday, July 28, 2017 11:29 - CONCLUSION: Diffuse atherosclerotic disease. This involves the anterior and posterior circulations including areas of high-grade stenosis. In particular there is a high-grade stenosis involving the proximal left M1 segment which is diffusely diseased. No embolus or thrombus appreciated. Kenton Perry Jr., MD Head CT 07/28/17 0000 Signed Impressions: Service Date/Time: Friday, July 28, 2017 11:29 - CONCLUSION: 1. No acute hemorrhage or infarction. 2. Area of encephalomalacia involving the left MCA territory posteriorly which is a new finding from the prior study. 3. Extensive chronic small vessel ischemic change. Kenton Perry Jr., MD Brain MRI 07/28/17 0000 Signed Impressions: Service Date/Time: Friday, July 28, 2017 13:49 - CONCLUSION: 1. Gyriform diffusion restriction characteristics of an acute or subacute ischemic event in the left MCA territory. 2. Cortical atrophy slightly more prominent leftward. Severe periventricular and scattered deep white matter tracts small vessel ischemic demyelination. 3. 3.9 x 2.2 cm arachnoid cyst in the anterior left middle cranial fossa. Tomi Tejada MD Objective Remarks GENERAL: This is a well-nourished, well-developed patient, in no apparent distress. CARDIOVASCULAR: Regular rate and regular rhythm without murmurs, gallops, or rubs. RESPIRATORY: Clear to auscultation. Breath sounds equal bilaterally. No wheezes , rales, or rhonchi. GASTROINTESTINAL: Abdomen soft, non-tender, nondistended. Normal, active bowel sounds MUSCULOSKELETAL: Extremities without clubbing, cyanosis, or edema. NEURO: awake and alert- with expressive aphasia. Moves all ext x4 Medications and IVs Inpatient Medications Amlodipine Besylate (Norvasc) 2.5 mg DAILY PO Last administered on 07/30/17at 11 :48; Start 07/30/17 at 09:30 Aspirin (Aspirin Chew) 81 mg DAILY PO ; Start 07/29/17 at 09:00; Stop 07/29/17 at 15:43; Status DC Aspirin (Aspirin Supp) 300 mg STAT ONCE RECTAL Last administered on 07/28/17at 12:45; Start 07/28/17 at 12:45; Stop 07/28/17 at 12:46; Status DC Aspirin (Ecotrin Ec) 325 mg DAILY PO Last administered on 07/30/17at 09:04; Start 07/29/17 at 16:00 Atorvastatin Calcium (Lipitor) 10 mg HS PO Last administered on 07/30/17at 21:25 ; Start 07/28/17 at 21:00 Clopidogrel Bisulfate (Plavix) 75 mg DAILY PO Last administered on 07/30/17at 11 :48; Start 07/30/17 at 11:00 Dextrose (D50w (Vial) Inj) 50 ml UNSCH PRN IV PUSH HYPOGLYCEMIA-SEE COMMENTS; Start 07/28/17 at 16:15 Enalaprilat (Vasotec Inj) 1.25 mg Q4H PRN IV PUSH For SBP > 220 or DBP > 120 Last administered on 07/30/17at 21:24; Start 07/28/17 at 16:15 Enoxaparin Sodium (Lovenox Inj) 40 mg Q24H SQ ; Start 07/28/17 at 17:00; Status Future Hold Glucagon (Glucagon Inj) 1 mg UNSCH PRN OTHER HYPOGLYCEMIA-SEE COMMENTS; Start 07/28/17 at 16:15 Insulin Aspart (NovoLOG SUPPLEMENTAL SCALE) 1 ACHS SLIDING SCALE SQ ; Start 07/28/17 at 17:00 Labetalol HCl (Trandate Inj) 10 mg Q2H PRN IV PUSH For SBP > 220 or DBP > 120; Start 07/28/17 at 16:15 Metoprolol Succinate (Toprol Xl) 25 mg DAILY PO Last administered on 07/30/17at 09:04; Start 07/29/17 at 09:00 Oxybutynin Chloride (Ditropan) 5 mg Q12H PO Last administered on 07/31/17at 06: 20; Start 07/29/17 at 06:00 Potassium Chloride/Sodium Chloride 1,000 ml @ 70 mls/hr [id number] IV Last administered on 07/29/17at 22:05; Start 07/29/17 at 16:09 Sodium Nitroprusside 50 mg/Dextrose 250 ml @ 14.94 mls/ hr TITRATE PRN IV Maintain BP goal; Start 07/28/17 at 16:15 Sodium Chloride 1,000 ml @ 75 mls/hr [id number] IV ; Start 07/30/17 at 09:43 Sodium Chloride (NS Flush) 2 ml UNSCH PRN IV FLUSH FLUSH AFTER USING IV ACCESS ; Start 07/28/17 at 16:15 Tamsulosin HCl (Flomax) 0.4 mg HS PO Last administered on 07/30/17at 21:29; Start 07/28/17 at 21:00 A/P Assessment and Plan Subacute left MCA infarct Expressive Aphasia -CT head shows no acute hemorrhage or infarction, there is an area of encephalomalacia involving the left MCA territory posteriorly. -Brain MRI shows gyriform diffusion restriction characteristic of acute or subacute ischemic event in the left MCA territory -Neck CTA significant for 70-80% stenosis left internal carotid -Head CTA reveals diffuse atherosclerotic disease involving the anterior posterior circulations including areas of high-grade stenosis, high-grade stenosis involving proximal left M1 segment which is diffusely diseased -echo with EF 65% and no regional wall motion abnormalities. -Patient has already been evaluated by Dr. Austin - likely infarct in May. Not a TPA candidate due to increased risk of hemorrhage given likely infarct 7 weeks ago. -Consulted stroke navigator -neuro checks -Holter monitor -Continuous cardiac monitoring -Consulted rehabilitation medicine -continue aspirin -continue Statin -PT/OT/ST eval/tx -monitor blood sugars -fall, aspiration and seizure precautions Hypertension, uncontrolled -started on metoprolol -will increase norvasc today. -continue Vasotec prn -will monitor and adjust the regimen as needed. PVD -70-80% stenosis left internal carotid -Dr. Ellsworth consulted; plan for f/u as outpatient. CAD s/p CABG -Patient has no cardiac complaints at this time -continue aspirin -resume home metoprolol 25mg daily . -Continuous cardiac monitoring ?JASIEL on suspected CKD -improved. -Avoid nephrotoxic agents -Continue to monitor renal indices Borderline DM - hemoglobin A1c 5.6 -accucheck and insulin sliding scale Macroscopic hematuria BPH -resumed home dose of Flomax -UA unremarkable -avoid anticoagulation -Ditropan for bladder spasms -Urology consult appreciated. mild hypokalemia - replaced. erythema over the right upper extremity; venous doppler negative for DVT. DVT prophylaxis -Avoid anticoagulation at this time due to hematuria -Bilateral SCD/ZENIA hose Discharge Planning dc to rehab within the next 48 hrs if stable with better BP control. Miguel Umanzor MD Jul 31, 2017 09:55
[2017-07-31] MEDS: SODIUM CHLORIDE 0.9% FLUSH 10 ML FLUSH IV FLUSH SCH ×2 (09:58→20:56)
[2017-07-31] MEDS ORDERED: amLODIPine BESYLATE 5 MG TAB PO ONE (10:00)
[2017-07-31] MEDS ORDERED: PILL SPLITTER OTHER PRN (10:30)
[2017-07-31] MEDS: NS + KCL 20 MEQ INJ 1,000 ML IV SCH (11:03)
[2017-07-31] MEDS: ENALAPRILAT 1.25 MG/ML VIAL IV PUSH PRN ×3 (11:23→23:11)
[2017-07-31] MEDS: SODIUM CHLOR 0.9% 1000 ML INJ 1,000 ML IV SCH (11:31)
--- NOTE | 2017-07-31 14:01 | PD.CAR.PN ---
CVT Progress Note Subjective/Hospital Course: Consult received Full dictation ROSA Antonio Monzon 07/31/2017 I reviewed laboratory and diagnostic procedures. 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 Now he has new stroke resulting in near total aphasia which is again, slowly improving. 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 Based on this, I would recommend that the patient go to rehab, be actively engaged and I will see him in about 3 or 4 weeks at which point he might be a candidate for left carotid endarterectomy. In absence of other prohibiting comorbidities, patient with an 80% stenosis and symptoms should definitely have surgery to prevent further strokes. Patient is now slowly improving over the period of time from his most recent stroke I plan to see patient in my office in about 2-3 weeks at which point all things equal, he will be scheduled for left carotid endarterectomy Objective: Vital Signs Date Time Temp Pulse Resp B/P (MAP) Pulse Ox O2 Delivery O2 Flow Rate FiO2 07/31/17 12:00 98.0 61 18 197/118 (144) 94 07/31/17 08:37 97.5 66 18 166/93 (117) 97 07/31/17 04:12 69 07/31/17 04:00 98.9 67 20 195/103 (133) 94 07/31/17 00:12 60 07/31/17 00:00 97.1 84 18 140/82 (101) 98 07/30/17 23:00 67 07/30/17 22:17 95 07/30/17 20:00 97.4 67 18 228/139 (168) 96 226/134 (164) 07/30/17 16:00 67 07/30/17 16:00 98.3 69 18 193/111 (138) 95 Result Diagram: 07/29/17 0517 07/29/17 0517 Raina Ellsworth MD Jul 31, 2017 14:01
[2017-07-31] MEDS: ATORVASTATIN 10 MG TAB PO SCH (20:55)
[2017-07-31] MEDS: TAMSULOSIN HCL 0.4 MG CAP PO SCH (20:56)
--- NOTE | 2017-07-31 21:00 | HM ---
Date Performed: 07/29/2017 Time Performed: 13:41:00 HOOKUP DATE: 07/29/17 01:41:00 PM Sat ANALYSIS START TIME: 07/29/2017 1:46:00 PM ANALYSIS END TIME: 07/30/2017 1:16:24 PM PATIENT AGE: 72 PATIENT HEIGHT PATIENT WEIGHT DRUG LIST PATIENT DIAGNOSIS: stroke alert TEST NARRATIVE: The patient's average heart rate was 69 BPM. No episodes of tachycardia wer e noted. No episodes of bradycardia were noted. No pauses exceeding 2.0 seconds were noted. 36 ventricular ectopics, which represented < 1% of the total beat count, were noted. The highest valencia tricular ectopic frequency occurred from 04:00 AM to 05:00 AM Sun. During this time 5 VE(s) occurred . Ventricular ectopics were observed as 36 isolated beat(s) only. No couplets or runs were noted. 8 supraventricular ectopics, which represented < 1% of the total beat count, were noted. The high est supraventricular ectopic frequency occurred from 04:00 PM to 05:00 PM Sat. During this time 1 SV E(s) occurred. No episodes of ST depression (defined as -1.0 mm or more) were noted in channel 1. No episodes of ST depression (defined as -1.0 mm or more) were noted in channel 2. No episodes of ST depression (defined as -1.0 mm or more) were noted in channel 3. NO PATIENT DIARY RETURNED TEST INTERPRETATION: Patient undergoes a holter monitor to see if there's any relationship of hi s neurologic symptoms with an underlying rhythm disturbance. No diary is provided. Patient is in Sinu s rhythm throughout the monitoring session. Rare unifocal PACs and PVCs are noted. No arrhythmias are noted C onclusions: Normal holter monitor with rare PACs and PVCs No significant tachy or mich arrhythmias No diary provided Signed by : Zita Cannon
[2017-07-31] MEDS: SODIUM CHLORIDE 0.9% FLUSH 10 ML FLUSH IV FLUSH PRN (23:11)
[2017-08-01] VITALS (11 sets, daily range): BP systolic 128–232; BP diastolic 85–116; PULSE 61–81; RESP 18–20; TEMP 97.4–98.7; O2SAT 94–100
[2017-08-01] MEDS: OXYBUTYNIN CHLORIDE 5 MG TAB PO SCH ×2 (05:33→18:37)
[2017-08-01] MEDS: SODIUM CHLORIDE 0.9% FLUSH 10 ML FLUSH IV FLUSH PRN (05:35)
[2017-08-01] MEDS: ENALAPRILAT 1.25 MG/ML VIAL IV PUSH PRN ×2 (05:35→20:53)
--- NOTE | 2017-08-01 07:22 | HHI.PR ---
Subjective Remarks sr Objective Vital Signs Date Time Temp Pulse Resp B/P (MAP) Pulse Ox O2 Delivery O2 Flow Rate FiO2 08/01/17 06:00 97.5 19 185/95 (125) 08/01/17 05:42 97.4 74 20 229/115 (153) 97 08/01/17 01:15 97.5 69 175/90 (118) 08/01/17 00:59 97.4 81 20 218/116 (150) 97 07/31/17 22:02 97.4 75 19 221/124 (156) 97 07/31/17 18:48 58 07/31/17 17:17 95 21 07/31/17 16:00 98.0 78 18 198/102 (134) 98 07/31/17 14:18 95 21 07/31/17 12:00 98.0 61 18 197/118 (144) 94 07/31/17 08:37 97.5 66 18 166/93 (117) 97 07/31/17 08:00 65 I/O 07/31/17 07/31/17 07/31/17 08/01/17 08/01/17 08/01/17 07:00 15:00 23:00 07:00 15:00 23:00 Intake Total 240 ml Output Total 500 ml Balance -500 ml 240 ml Intake Oral 240 ml Output Urine Total 500 ml # Voids 2 1 Result Diagram: 07/29/1751607/29/1717 Objective Remarks awake alert makes few sounds said hello and bye stuck out clementu tries to follow commands moves all well r droop Assessment and Plan Assessment and Plan imp left mca cva with 70% left mca dz basilar dz severe and 80% left ICA STENOSIS DAUGHTER TELLS ME now some friends saw event also 2 weeks aphasia transient he was not taking asa acc to her as bottle full at home plan is eventual left ica cea and asa for now ldl nl but on statin with all the cvd hob ok 45degrees i dw urology ok to dc moore with hematuria he never really needed one and er should be notified to hold on foleys down there unless absolutely necessary keep bp up but not over 200/100 echo ok 07/30/17 looks better today unstable cvd many tia and cva last 2 months was not on asa at home will do plavix and asa for now echo neg fu holter 07/31/17 on statin and plavix and asa ok to run bp 140-160/ now to do cea in 3 weeks acc to vascular could dc on reduced 81 asa dose when bp stable for a day in range above 08/01/17 needs better bp control as above stable neuro a little better daily Angel Austin MD Aug 01, 2017 07:22
[2017-08-01] MEDS: INSULIN ASPART SUPPLEMENTAL SCALE SQ SCH ×4 (08:00→20:55)
[2017-08-01] MEDS: ASPIRIN EC 325 MG TABEC PO SCH (08:28)
[2017-08-01] MEDS: METOPROLOL SUCCINATE 25 MG EXTENDED RELEASE TAB PO SCH (08:28)
[2017-08-01] MEDS: CLOPIDOGREL 75 MG TAB PO SCH (08:28)
--- NOTE | 2017-08-01 09:52 | HHI.PR ---
Subjective Remarks in no acute distress. speech is better today. denies pain. BP trend noted. d/w ST at the bedside. Objective Vitals Vital Signs Date Time Temp Pulse Resp B/P (MAP) Pulse Ox O2 Delivery O2 Flow Rate FiO2 08/01/17 08:35 97.6 67 18 165/95 (118) 94 08/01/17 06:00 97.5 19 185/95 (125) 08/01/17 05:42 97.4 74 20 229/115 (153) 97 08/01/17 01:15 97.5 69 175/90 (118) 08/01/17 00:59 97.4 81 20 218/116 (150) 97 07/31/17 22:02 97.4 75 19 221/124 (156) 97 07/31/17 18:48 58 07/31/17 17:17 95 21 07/31/17 16:00 98.0 78 18 198/102 (134) 98 07/31/17 14:18 95 21 07/31/17 12:00 98.0 61 18 197/118 (144) 94 I/O 07/31/17 07/31/17 07/31/17 08/01/17 08/01/17 08/01/17 07:00 15:00 23:00 07:00 15:00 23:00 Intake Total 240 ml Output Total 500 ml Balance -500 ml 240 ml Intake Oral 240 ml Output Urine Total 500 ml # Voids 2 1 Result Diagram: 07/29/17 0517 07/29/17 0517 Imaging Last Impressions Upper Extremity Ultrasound 07/30/17 0957 Signed Impressions: Service Date/Time: Sunday, July 30, 2017 10:50 - CONCLUSION: No evidence of deep or superficial venous thrombosis. Gildardo Berg MD Neck CTA 07/28/17 1124 Signed Impressions: Service Date/Time: Friday, July 28, 2017 11:29 - CONCLUSION: No cysts proximal left internal carotid with soft plaque. Stenosis 2 cm above the bifurcation is approximately 75%% to 80%%. Bowen Cameron MD FACR Head CTA 07/28/17 1124 Signed Impressions: Service Date/Time: Friday, July 28, 2017 11:29 - CONCLUSION: Diffuse atherosclerotic disease. This involves the anterior and posterior circulations including areas of high-grade stenosis. In particular there is a high-grade stenosis involving the proximal left M1 segment which is diffusely diseased. No embolus or thrombus appreciated. Kenton Perry Jr., MD Head CT 07/28/17 0000 Signed Impressions: Service Date/Time: Friday, July 28, 2017 11:29 - CONCLUSION: 1. No acute hemorrhage or infarction. 2. Area of encephalomalacia involving the left MCA territory posteriorly which is a new finding from the prior study. 3. Extensive chronic small vessel ischemic change. Kenton Perry Jr., MD Brain MRI 07/28/17 0000 Signed Impressions: Service Date/Time: Friday, July 28, 2017 13:49 - CONCLUSION: 1. Gyriform diffusion restriction characteristics of an acute or subacute ischemic event in the left MCA territory. 2. Cortical atrophy slightly more prominent leftward. Severe periventricular and scattered deep white matter tracts small vessel ischemic demyelination. 3. 3.9 x 2.2 cm arachnoid cyst in the anterior left middle cranial fossa. Tomi Tejada MD Objective Remarks GENERAL: This is a well-nourished, well-developed patient, in no apparent distress. CARDIOVASCULAR: Regular rate and regular rhythm without murmurs, gallops, or rubs. RESPIRATORY: Clear to auscultation. Breath sounds equal bilaterally. No wheezes , rales, or rhonchi. GASTROINTESTINAL: Abdomen soft, non-tender, nondistended. Normal, active bowel sounds MUSCULOSKELETAL: Extremities without clubbing, cyanosis, or edema. NEURO: awake and alert- with expressive aphasia. Moves all ext x4 Medications and IVs Inpatient Medications Amlodipine Besylate (Norvasc) 7.5 mg ONCE ONCE PO ; Start 07/31/17 at 10:00; Stop 07/31/17 at 10:24; Status DC Aspirin (Aspirin Chew) 81 mg DAILY PO ; Start 07/29/17 at 09:00; Stop 07/29/17 at 15:43; Status DC Aspirin (Aspirin Supp) 300 mg STAT ONCE RECTAL Last administered on 07/28/17at 12:45; Start 07/28/17 at 12:45; Stop 07/28/17 at 12:46; Status DC Aspirin (Ecotrin Ec) 325 mg DAILY PO Last administered on 08/01/17at 08:28; Start 07/29/17 at 16:00 Atorvastatin Calcium (Lipitor) 10 mg HS PO Last administered on 07/31/17at 20:55 ; Start 07/28/17 at 21:00 Clopidogrel Bisulfate (Plavix) 75 mg DAILY PO Last administered on 08/01/17at 08 :28; Start 07/30/17 at 11:00 Dextrose (D50w (Vial) Inj) 50 ml UNSCH PRN IV PUSH HYPOGLYCEMIA-SEE COMMENTS; Start 07/28/17 at 16:15 Enalaprilat (Vasotec Inj) 1.25 mg Q4H PRN IV PUSH SBP > 180 OR DBP > 100 Last administered on 07/31/17at 23:11; Start 07/28/17 at 16:15 Enoxaparin Sodium (Lovenox Inj) 40 mg Q24H SQ ; Start 07/28/17 at 17:00; Status Future Hold Glucagon (Glucagon Inj) 1 mg UNSCH PRN OTHER HYPOGLYCEMIA-SEE COMMENTS; Start 07/28/17 at 16:15 Insulin Aspart (NovoLOG SUPPLEMENTAL SCALE) 1 ACHS SLIDING SCALE SQ ; Start 07/28/17 at 17:00 Labetalol HCl (Trandate Inj) 10 mg Q2H PRN IV PUSH For SBP > 220 or DBP > 120; Start 07/28/17 at 16:15 Metoprolol Succinate (Toprol Xl) 25 mg DAILY PO Last administered on 08/01/17at 08:28; Start 07/29/17 at 09:00 Miscellaneous (Pill Splitter) 1 ea UNSCH PRN OTHER SEE LABEL COMMENTS; Start at 10:30 Oxybutynin Chloride (Ditropan) 5 mg Q12H PO Last administered on 08/01/17at 05: 33; Start 07/29/17 at 06:00 Potassium Chloride/Sodium Chloride 1,000 ml @ 70 mls/hr [id number] IV Last administered on 07/29/17at 22:05; Start 07/29/17 at 16:09; Status Future Hold Sodium Nitroprusside 50 mg/Dextrose 250 ml @ 14.94 mls/ hr TITRATE PRN IV Maintain BP goal; Start 07/28/17 at 16:15 Sodium Chloride 1,000 ml @ 75 mls/hr [id number] IV ; Start 07/30/17 at 09:43; Status Future Hold Sodium Chloride (NS Flush) 2 ml UNSCH PRN IV FLUSH FLUSH AFTER USING IV ACCESS Last administered on 08/01/17at 05:35; Start 07/28/17 at 16:15 Tamsulosin HCl (Flomax) 0.4 mg HS PO Last administered on 07/31/17at 20:56; Start 07/28/17 at 21:00 A/P Assessment and Plan Subacute left MCA infarct Expressive Aphasia -CT head shows no acute hemorrhage or infarction, there is an area of encephalomalacia involving the left MCA territory posteriorly. -Brain MRI shows gyriform diffusion restriction characteristic of acute or subacute ischemic event in the left MCA territory -Neck CTA significant for 70-80% stenosis left internal carotid -Head CTA reveals diffuse atherosclerotic disease involving the anterior posterior circulations including areas of high-grade stenosis, high-grade stenosis involving proximal left M1 segment which is diffusely diseased -echo with EF 65% and no regional wall motion abnormalities. -Patient has already been evaluated by Dr. Austin - likely infarct in May. Not a TPA candidate due to increased risk of hemorrhage given likely infarct 7 weeks ago. -Consulted stroke navigator -neuro checks -Holter; normal. -Continuous cardiac monitoring -Consulted rehabilitation medicine -continue aspirin -continue Statin -PT/OT/ST eval/tx -monitor blood sugars -fall, aspiration and seizure precautions Hypertension, uncontrolled -started on metoprolol -continue norvasc . -continue Vasotec prn -will monitor and adjust the regimen as needed. -will consider Procardia if BP doesn't improve on this regimen. PVD -70-80% stenosis left internal carotid -Dr. Ellsworth consulted; plan for f/u as outpatient. CAD s/p CABG -Patient has no cardiac complaints at this time -continue aspirin -resume home metoprolol 25mg daily . -Continuous cardiac monitoring ?JASIEL on suspected CKD -improved. -Avoid nephrotoxic agents -Continue to monitor renal indices Borderline DM - hemoglobin A1c 5.6 -accucheck and insulin sliding scale Macroscopic hematuria BPH -resumed home dose of Flomax -UA unremarkable -avoid anticoagulation -Ditropan for bladder spasms -Urology consult appreciated. mild hypokalemia - replaced. erythema over the right upper extremity; venous doppler negative for DVT. DVT prophylaxis -Avoid anticoagulation at this time due to hematuria -Bilateral SCD/ZENIA hose Discharge Planning dc to rehab within the next 24 hrs if stable with better BP control. Miguel Umanzor MD Aug 01, 2017 09:52
[2017-08-01] MEDS: SODIUM CHLORIDE 0.9% FLUSH 10 ML FLUSH IV FLUSH SCH ×2 (13:23→20:55)
--- NOTE | 2017-08-01 18:41 | PD.CAR.PN ---
CVT Progress Note Subjective/Hospital Course: Consult received Full dictation ROSA Antonio Monzon 07/31/2017 I reviewed laboratory and diagnostic procedures. 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 Now he has new stroke resulting in near total aphasia which is again, slowly improving. 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 Based on this, I would recommend that the patient go to rehab, be actively engaged and I will see him in about 3 or 4 weeks at which point he might be a candidate for left carotid endarterectomy. In absence of other prohibiting comorbidities, patient with an 80% stenosis and symptoms should definitely have surgery to prevent further strokes. Patient is now slowly improving over the period of time from his most recent stroke I plan to see patient in my office in about 2-3 weeks at which point all things equal, he will be scheduled for left carotid endarterectomy 08/01/2017 Patient doing well much improved Walking corridors minimal right sided weakness and speech is slowly returning Patient is still somewhat dysarthric but definitely not aphasic We will give him another 2 weeks or so to recover and then we are going to schedule him for left carotid endarterectomy before he gets another stroke Objective: Vital Signs Date Time Temp Pulse Resp B/P (MAP) Pulse Ox O2 Delivery O2 Flow Rate FiO2 08/01/17 17:52 128/85 (99) 08/01/17 16:18 97.8 62 18 191/104 (133) 100 08/01/17 12:10 97.4 61 18 145/88 (107) 98 08/01/17 12:00 64 08/01/17 08:35 97.6 67 18 165/95 (118) 94 08/01/17 08:20 64 08/01/17 06:00 97.5 19 185/95 (125) 08/01/17 05:42 97.4 74 20 229/115 (153) 97 08/01/17 01:15 97.5 69 175/90 (118) 08/01/17 00:59 97.4 81 20 218/116 (150) 97 07/31/17 22:02 97.4 75 19 221/124 (156) 97 07/31/17 18:48 58 Result Diagram: 07/29/17 0517 07/29/17 0517 Raina Ellsworth MD Aug 01, 2017 18:41
[2017-08-01] MEDS: TAMSULOSIN HCL 0.4 MG CAP PO SCH (20:53)
[2017-08-01] MEDS: ATORVASTATIN 10 MG TAB PO SCH (20:53)
[2017-08-01] MEDS ORDERED: cloNIDine HCL 0.1 MG TAB PO ONE (23:30)
[2017-08-02] VITALS (8 sets, daily range): BP systolic 142–186; BP diastolic 84–106; PULSE 57–77; RESP 16–20; TEMP 97.6–98.5; O2SAT 95–97
[2017-08-02] MEDS: OXYBUTYNIN CHLORIDE 5 MG TAB PO SCH ×2 (06:04→18:51)
--- NOTE | 2017-08-02 07:36 | HHI.PR ---
Subjective Remarks sr Objective Vital Signs Date Time Temp Pulse Resp B/P (MAP) Pulse Ox O2 Delivery O2 Flow Rate FiO2 08/02/17 04:00 97.7 68 19 180/87 (118) 95 08/02/17 00:00 97.8 77 19 163/94 (117) 97 08/01/17 20:16 98.7 77 20 232/105 (147) 98 08/01/17 17:52 128/85 (99) 08/01/17 16:18 97.8 62 18 191/104 (133) 100 08/01/17 12:10 97.4 61 18 145/88 (107) 98 08/01/17 12:00 64 08/01/17 08:35 97.6 67 18 165/95 (118) 94 08/01/17 08:20 64 I/O 08/01/17 08/01/17 08/01/17 08/02/17 08/02/17 08/02/17 07:00 15:00 23:00 07:00 15:00 23:00 Output Total 200 ml Balance -200 ml Output Urine Total 200 ml # Voids 1 1 # Bowel Movements 0 Result Diagram: 07/29/1751607/29/1717 Objective Remarks awake alert makes few sounds said hello and bye s tries to follow commands moves all well r droop Assessment and Plan Assessment and Plan imp left mca cva with 70% left mca dz basilar dz severe and 80% left ICA STENOSIS DAUGHTER TELLS ME now some friends saw event also 2 weeks aphasia transient he was not taking asa acc to her as bottle full at home plan is eventual left ica cea and asa for now ldl nl but on statin with all the cvd hob ok 45degrees i dw urology ok to dc moore with hematuria he never really needed one and er should be notified to hold on foleys down there unless absolutely necessary keep bp up but not over 200/100 echo ok 07/30/17 looks better today unstable cvd many tia and cva last 2 months was not on asa at home will do plavix and asa for now echo neg fu holter 07/31/17 on statin and plavix and asa ok to run bp 140-160/ now to do cea in 3 weeks acc to vascular could dc on reduced 81 asa dose when bp stable for a day in range above 08/01/17 needs better bp control as above stable neuro a little better daily 08/02/17 bp still up stable needs more agressive bp control to 140-160/ no below that ok to dc when that is achieved will sign off needs cea in about 2.5 weeks Angel Austin MD Aug 02, 2017 07:36
[2017-08-02] MEDS: METOPROLOL SUCCINATE 25 MG EXTENDED RELEASE TAB PO SCH (08:17)
[2017-08-02] MEDS: SODIUM CHLORIDE 0.9% FLUSH 10 ML FLUSH IV FLUSH SCH ×2 (08:18→21:24)
[2017-08-02] MEDS: ASPIRIN EC 325 MG TABEC PO SCH (08:18)
[2017-08-02] MEDS: CLOPIDOGREL 75 MG TAB PO SCH (08:18)
--- NOTE | 2017-08-02 08:57 | HHI.PR ---
Subjective Remarks in no acute distress. speech is improving. BP trend noted and still elevated. d/w the RN. Objective Vitals Vital Signs Date Time Temp Pulse Resp B/P (MAP) Pulse Ox O2 Delivery O2 Flow Rate FiO2 08/02/17 04:00 97.7 68 19 180/87 (118) 95 08/02/17 00:00 97.8 77 19 163/94 (117) 97 08/01/17 20:16 98.7 77 20 232/105 (147) 98 08/01/17 17:52 128/85 (99) 08/01/17 16:18 97.8 62 18 191/104 (133) 100 08/01/17 12:10 97.4 61 18 145/88 (107) 98 08/01/17 12:00 64 I/O 08/01/17 08/01/17 08/01/17 08/02/17 08/02/17 08/02/17 07:00 15:00 23:00 07:00 15:00 23:00 Output Total 200 ml Balance -200 ml Output Urine Total 200 ml # Voids 1 1 # Bowel Movements 0 Result Diagram: 07/29/17 0517 07/29/17 0517 Imaging Last Impressions Upper Extremity Ultrasound 07/30/17 0957 Signed Impressions: Service Date/Time: Sunday, July 30, 2017 10:50 - CONCLUSION: No evidence of deep or superficial venous thrombosis. Gildardo Berg MD Neck CTA 07/28/17 1124 Signed Impressions: Service Date/Time: Friday, July 28, 2017 11:29 - CONCLUSION: No cysts proximal left internal carotid with soft plaque. Stenosis 2 cm above the bifurcation is approximately 75%% to 80%%. Bowen Cameron MD FACR Head CTA 07/28/17 1124 Signed Impressions: Service Date/Time: Friday, July 28, 2017 11:29 - CONCLUSION: Diffuse atherosclerotic disease. This involves the anterior and posterior circulations including areas of high-grade stenosis. In particular there is a high-grade stenosis involving the proximal left M1 segment which is diffusely diseased. No embolus or thrombus appreciated. Kenton Perry Jr., MD Head CT 07/28/17 0000 Signed Impressions: Service Date/Time: Friday, July 28, 2017 11:29 - CONCLUSION: 1. No acute hemorrhage or infarction. 2. Area of encephalomalacia involving the left MCA territory posteriorly which is a new finding from the prior study. 3. Extensive chronic small vessel ischemic change. Kenton Perry Jr., MD Brain MRI 07/28/17 0000 Signed Impressions: Service Date/Time: Friday, July 28, 2017 13:49 - CONCLUSION: 1. Gyriform diffusion restriction characteristics of an acute or subacute ischemic event in the left MCA territory. 2. Cortical atrophy slightly more prominent leftward. Severe periventricular and scattered deep white matter tracts small vessel ischemic demyelination. 3. 3.9 x 2.2 cm arachnoid cyst in the anterior left middle cranial fossa. Tomi Tejada MD Objective Remarks GENERAL: This is a well-nourished, well-developed patient, in no apparent distress. CARDIOVASCULAR: Regular rate and regular rhythm without murmurs, gallops, or rubs. RESPIRATORY: Clear to auscultation. Breath sounds equal bilaterally. No wheezes , rales, or rhonchi. GASTROINTESTINAL: Abdomen soft, non-tender, nondistended. Normal, active bowel sounds MUSCULOSKELETAL: Extremities without clubbing, cyanosis, or edema. NEURO: awake and alert- with expressive aphasia. Moves all ext x4 Medications and IVs Inpatient Medications Amlodipine Besylate (Norvasc) 7.5 mg ONCE ONCE PO ; Start 07/31/17 at 10:00; Stop 07/31/17 at 10:24; Status DC Aspirin (Aspirin Chew) 81 mg DAILY PO ; Start 07/29/17 at 09:00; Stop 07/29/17 at 15:43; Status DC Aspirin (Aspirin Supp) 300 mg STAT ONCE RECTAL Last administered on 07/28/17at 12:45; Start 07/28/17 at 12:45; Stop 07/28/17 at 12:46; Status DC Aspirin (Ecotrin Ec) 325 mg DAILY PO Last administered on 08/02/17at 08:18; Start 07/29/17 at 16:00 Atorvastatin Calcium (Lipitor) 10 mg HS PO Last administered on 08/01/17at 20:53 ; Start 07/28/17 at 21:00 Clonidine (Catapres) 0.1 mg ONCE ONCE PO Last administered on 08/01/17at 23:47 ; Start 08/01/17 at 23:30; Stop 08/01/17 at 23:34; Status DC Clopidogrel Bisulfate (Plavix) 75 mg DAILY PO Last administered on 08/02/17at 08 :18; Start 07/30/17 at 11:00 Dextrose (D50w (Vial) Inj) 50 ml UNSCH PRN IV PUSH HYPOGLYCEMIA-SEE COMMENTS; Start 07/28/17 at 16:15 Enalaprilat (Vasotec Inj) 1.25 mg Q4H PRN IV PUSH SBP > 180 OR DBP > 100 Last administered on 08/01/17at 20:53; Start 07/28/17 at 16:15 Enoxaparin Sodium (Lovenox Inj) 40 mg Q24H SQ ; Start 07/28/17 at 17:00; Status Future Hold Glucagon (Glucagon Inj) 1 mg UNSCH PRN OTHER HYPOGLYCEMIA-SEE COMMENTS; Start 07/28/17 at 16:15 Insulin Aspart (NovoLOG SUPPLEMENTAL SCALE) 1 ACHS SLIDING SCALE SQ ; Start 07/28/17 at 17:00; Stop 08/02/17 at 06:07; Status DC Labetalol HCl (Trandate Inj) 10 mg Q2H PRN IV PUSH For SBP > 220 or DBP > 120; Start 07/28/17 at 16:15 Metoprolol Succinate (Toprol Xl) 25 mg DAILY PO Last administered on 08/02/17at 08:17; Start 07/29/17 at 09:00 Miscellaneous (Pill Splitter) 1 ea UNSCH PRN OTHER SEE LABEL COMMENTS; Start at 10:30 Oxybutynin Chloride (Ditropan) 5 mg Q12H PO Last administered on 08/02/17at 06: 04; Start 07/29/17 at 06:00 Potassium Chloride/Sodium Chloride 1,000 ml @ 70 mls/hr [id number] IV Last administered on 07/29/17at 22:05; Start 07/29/17 at 16:09; Status Future Hold Sodium Nitroprusside 50 mg/Dextrose 250 ml @ 14.94 mls/ hr TITRATE PRN IV Maintain BP goal; Start 07/28/17 at 16:15 Sodium Chloride 1,000 ml @ 75 mls/hr [id number] IV ; Start 07/30/17 at 09:43; Status Future Hold Sodium Chloride (NS Flush) 2 ml UNSCH PRN IV FLUSH FLUSH AFTER USING IV ACCESS Last administered on 08/01/17at 05:35; Start 07/28/17 at 16:15 Tamsulosin HCl (Flomax) 0.4 mg HS PO Last administered on 08/01/17at 20:53; Start 07/28/17 at 21:00 A/P Assessment and Plan Subacute left MCA infarct Expressive Aphasia - Not a TPA candidate due to increased risk of hemorrhage given likely infarct 7 weeks ago. -CT head shows no acute hemorrhage or infarction, there is an area of encephalomalacia involving the left MCA territory posteriorly. -Brain MRI shows gyriform diffusion restriction characteristic of acute or subacute ischemic event in the left MCA territory -Neck CTA significant for 70-80% stenosis left internal carotid -Head CTA reveals diffuse atherosclerotic disease involving the anterior posterior circulations including areas of high-grade stenosis, high-grade stenosis involving proximal left M1 segment which is diffusely diseased. -echo with EF 65% and no regional wall motion abnormalities. -Holter; normal. -Consulted stroke navigator -neuro checks. -Continuous cardiac monitoring -Consulted rehabilitation medicine -continue aspirin -continue Statin -PT/OT/ST eval/tx -monitor blood sugars -fall, aspiration and seizure precautions Hypertension, uncontrolled -resumed metoprolol -continue norvasc . -will add lisinopril.(will monitor renal function ) -continue Vasotec prn -will monitor and adjust the regimen as needed. -will consider Procardia if BP doesn't improve on this regimen. PVD -70-80% stenosis left internal carotid -Dr. Ellsworth consulted; plan for f/u as outpatient. CAD s/p CABG -Patient has no cardiac complaints at this time -continue aspirin -resume home metoprolol 25mg daily . -Continuous cardiac monitoring ?JASIEL on suspected CKD -improved. -Avoid nephrotoxic agents -Continue to monitor renal indices Borderline DM - hemoglobin A1c 5.6 -accucheck and insulin sliding scale Macroscopic hematuria BPH -resumed home dose of Flomax -UA unremarkable -avoid anticoagulation -Ditropan for bladder spasms -Urology consult appreciated. mild hypokalemia - replaced. erythema over the right upper extremity; venous doppler negative for DVT. DVT prophylaxis -Avoid anticoagulation at this time due to hematuria -Bilateral SCD/ZENIA hose Discharge Planning needs better BP control. dc planning within the next 24-48 hrs if BP better. Miguel Umanzor MD Aug 02, 2017 08:57
[2017-08-02] MEDS: LISINOPRIL 10 MG TAB PO SCH (16:23)
[2017-08-02] MEDS: ATORVASTATIN 10 MG TAB PO SCH (21:24)
[2017-08-02] MEDS: TAMSULOSIN HCL 0.4 MG CAP PO SCH (21:24)
[2017-08-03] VITALS: BP 120/57; PULSE 69; RESP 18; TEMP 97.9; O2SAT 94
[2017-08-03 04:00] VITALS: BP 139/83; PULSE 67; RESP 18; TEMP 98.1; O2SAT 92
[2017-08-03] MEDS: OXYBUTYNIN CHLORIDE 5 MG TAB PO SCH (05:43)
[2017-08-03 07:30] VITALS: PULSE 58
[2017-08-03 08:00] VITALS: BP 128/84; PULSE 60; RESP 18; TEMP 97.5; O2SAT 98
[2017-08-03] MEDS ORDERED: PLAV75TA29 PO (08:28)
[2017-08-03] MEDS ORDERED: LIPI10TA PO (08:28)
[2017-08-03] MEDS ORDERED: ASPI-516 CHEW (08:28)
[2017-08-03] MEDS ORDERED: LISI10TA3 PO (08:28)
[2017-08-03] MEDS ORDERED: AMLO10 PO (08:28)
[2017-08-03] MEDS: ASPIRIN EC 325 MG TABEC PO SCH (09:53)
[2017-08-03] MEDS: METOPROLOL SUCCINATE 25 MG EXTENDED RELEASE TAB PO SCH (09:54)
[2017-08-03] MEDS: CLOPIDOGREL 75 MG TAB PO SCH (09:54)
[2017-08-03] MEDS: LISINOPRIL 10 MG TAB PO SCH (09:54)
--- NOTE | 2017-08-03 11:03 | HHI.DS ---
Discharge Summary Admission Date Jul 28, 2017 at 16:16 Discharge Date: Aug 03, 2017 Admitting Diagnosis acute ischemic L MCA CVA, accelerated HTN (1) Acute ischemic left MCA stroke ICD Code: I63.512 - Cerebral infarction due to unspecified occlusion or stenosis of left middle cerebral artery Status: Acute (2) Accelerated hypertension ICD Code: I10 - Essential (primary) hypertension Status: Acute (3) Hematuria ICD Code: R31.9 - Hematuria, unspecified Procedures None Brief History - From Admission HPI from the admitting physician This is 72-year-old male with past medical history significant for hypertension , CAD status post previous CABG, brain tumor followed by Dr. Flannery and dyslipidemia who presented to [facility] ED as a stroke alert. Patient is unable to give any history due to expressive aphasia and therefore history is obtained from review of electronic medical record and the daughter who is at the bedside. Reportedly, patient went to breakfast this morning and was in his usual state of health until around 10:15 AM when he became abruptly aphasic, confused and nonverbal. He was not able to follow commands. Apparently, he has been having episodes of "mini strokes" for the past few weeks. He was just seen in the ED Jun 05 2017 with generalized weakness and garbled speech that resolved on their own. CT of the brain at that time did not show any acute infarct. It was recommended patient stay for observation in the hospital but he declined. At present, he remains aphasic but is able to understand. He is able to follow commands. In the ED today, no acute hemorrhage or infarction appreciated however there was an area of encephalomalacia involving left MCA territory posteriorly which was new finding from the previous CT. Imaging Last Impressions Upper Extremity Ultrasound 07/30/17 0957 Signed Impressions: Service Date/Time: Sunday, July 30, 2017 10:50 - CONCLUSION: No evidence of deep or superficial venous thrombosis. Gildardo Berg MD Neck CTA 07/28/17 1124 Signed Impressions: Service Date/Time: Friday, July 28, 2017 11:29 - CONCLUSION: No cysts proximal left internal carotid with soft plaque. Stenosis 2 cm above the bifurcation is approximately 75%% to 80%%. Bowen Cameron MD FACR Head CTA 07/28/17 1124 Signed Impressions: Service Date/Time: Friday, July 28, 2017 11:29 - CONCLUSION: Diffuse atherosclerotic disease. This involves the anterior and posterior circulations including areas of high-grade stenosis. In particular there is a high-grade stenosis involving the proximal left M1 segment which is diffusely diseased. No embolus or thrombus appreciated. Kenton Perry Jr., MD Head CT 07/28/17 0000 Signed Impressions: Service Date/Time: Friday, July 28, 2017 11:29 - CONCLUSION: 1. No acute hemorrhage or infarction. 2. Area of encephalomalacia involving the left MCA territory posteriorly which is a new finding from the prior study. 3. Extensive chronic small vessel ischemic change. Kenton Perry Jr., MD Brain MRI 07/28/17 0000 Signed Impressions: Service Date/Time: Friday, July 28, 2017 13:49 - CONCLUSION: 1. Gyriform diffusion restriction characteristics of an acute or subacute ischemic event in the left MCA territory. 2. Cortical atrophy slightly more prominent leftward. Severe periventricular and scattered deep white matter tracts small vessel ischemic demyelination. 3. 3.9 x 2.2 cm arachnoid cyst in the anterior left middle cranial fossa. Tomi Tejada MD PE at Discharge GENERAL: This is a well-nourished, well-developed patient, in no apparent distress. CARDIOVASCULAR: Regular rate and regular rhythm without murmurs, gallops, or rubs. RESPIRATORY: Clear to auscultation. Breath sounds equal bilaterally. No wheezes , rales, or rhonchi. GASTROINTESTINAL: Abdomen soft, non-tender, nondistended. Normal, active bowel sounds MUSCULOSKELETAL: Extremities without clubbing, cyanosis, or edema. NEURO: awake and alert- with expressive aphasia. Moves all ext x4 Pt update on day of discharge Patient has significant expressive aphasia but can nod yes or no to questions. He conveyed that he is doing okay. Hospital Course 72-year-old male admitted and treated for the following: Subacute left MCA infarct Expressive Aphasia - Not a TPA candidate due to increased risk of hemorrhage given likely infarct 7 weeks ago. -CT head shows no acute hemorrhage or infarction, there is an area of encephalomalacia involving the left MCA territory posteriorly. -Brain MRI shows gyriform diffusion restriction characteristic of acute or subacute ischemic event in the left MCA territory -Neck CTA significant for 70-80% stenosis left internal carotid -Head CTA reveals diffuse atherosclerotic disease involving the anterior posterior circulations including areas of high-grade stenosis, high-grade stenosis involving proximal left M1 segment which is diffusely diseased. -echo with EF 65% and no regional wall motion abnormalities. -Holter; normal. -continue aspirin, Statin, Plavix added -PT/OT/ST to be continued at rehab. Hypertension, initially difficult to control -resumed metoprolol -continue norvasc . -Lisinopril was added PVD -70-80% stenosis left internal carotid -Dr. Ellsworth, vascular surgeon evaluated the patient; plan for f/u as outpatient. CAD s/p CABG -Patient has no cardiac complaints at this time -continue aspirin -resume home metoprolol 25mg daily . ?JASIEL on suspected CKD -improved. -Avoid nephrotoxic agents Macroscopic hematuria BPH -resumed home dose of Flomax -UA unremarkable -Urology evaluated the patient Pt Condition on Discharge: Good Discharge Disposition: Discharge to SNF Discharge Time: > 30 minutes Discharge Instructions DIET: Follow Instructions for: Heart Healthy Diet Speech Therapy-Diet Recommends: Honey Thickened Liquids, Pureed Activities you can perform: Regular-No Restrictions Follow up Referrals: Neurology - 2 Weeks with Angel Austin MD Vascular Surgery - 2 Weeks with Raina Ellsworth MD New Medications: Aspirin (Aspirin) 81 Mg Chew 81 MG CHEW ONCE, #30 TAB 0 Refills Amlodipine (Norvasc) 10 Mg Tab 10 MG PO DAILY, #30 TAB Atorvastatin (Lipitor) 10 Mg Tab 10 MG PO HS, #30 TAB Clopidogrel (Plavix) 75 Mg Tab 75 MG PO DAILY, #30 TAB Lisinopril (Lisinopril) 10 Mg Tab 10 MG PO DAILY, #30 TAB Continued Medications: Metoprolol Succinate ER 24 HR (Metoprolol Succinate ER 24 HR) 25 Mg Tab 25 MG PO DAILY, #30 TAB 0 Refills Tamsulosin (Tamsulosin) 0.4 Mg Cap 0.4 MG PO HS for Manage Prostate Problems, #30 CAP 0 Refills Eulalio Mckeon MD Aug 03, 2017 11:03
[2017-08-03 12:00] VITALS: BP 144/84; PULSE 60; RESP 18; TEMP 98; O2SAT 98
== END 2017-08-03 17:08 | DRG 65 ==
LOC: NEPE 11:15 → NEDA 16:16 → N05A 18:29
PROVIDERS: ADMIT Family Medicine; ATTEND Family Medicine
DX: I63.512 Cerebral infarction due to unspecified occlusion or stenosis of left middle cerebral artery (principal); N17.9 Acute kidney failure, unspecified; G93.89 Other specified disorders of brain; D49.6 Neoplasm of unspecified behavior of brain; R47.01 Aphasia; I65.22 Occlusion and stenosis of left carotid artery; T83.83XA Hemorrhage due to genitourinary prosthetic devices, implants and grafts, initial encounter; I25.10 Atherosclerotic heart disease of native coronary artery without angina pectoris; Z95.1 Presence of aortocoronary bypass graft; E78.5 Hyperlipidemia, unspecified; R73.03 Prediabetes; F17.210 Nicotine dependence, cigarettes, uncomplicated; I12.9 Hypertensive chronic kidney disease with stage 1 through stage 4 chronic kidney disease, or unspecified chronic kidney disease; N18.9 Chronic kidney disease, unspecified; E87.6 Hypokalemia
CPT/HCPCS: 70450; 70496; 70498; 70553; 80048; 80053; 80061; 80307; 81001; 82550; 82948; 83036; 84484; 85007; 85025; 85027; 85384; 85610; 85730; 86850; 86900; 86901; 93005; 93225; 93226; 93306; 93971; 96361; 96374; 96375; 99292; A9579; J3480; J7030; Q9967

== ENCOUNTER 2017-09-04 18:57 | Inpatient (IN) | payer OTHER, MEDICARE ==
[~2017-09-04] VITALS: Ht 157.5 cm; Wt 88.8 kg
[~2017-09-04 18:57] MED LIST changes: +AMLO10 PO; +ASPI-516 CHEW; -ATOR40TA16 PO; -BP MED; -BPH MED; +LIPI10TA PO; +LISI10TA3 PO; +PLAV75TA29 PO
[2017-09-04 21:30] VITALS: BP 189/100; PULSE 57; RESP 18; TEMP 98; O2SAT 97
[2017-09-04] MEDS ORDERED: OMEP20CA2 (21:56)
[2017-09-04] MEDS ORDERED: ZOFR4TAB PO (21:56)
[2017-09-04] MEDS ORDERED: ONDANSETRON HCL 4 MG/2 ML VIAL IV PUSH PRN (22:45)
[2017-09-04] MEDS ORDERED: ceFAZolin 2 GM PREMIX 50 ML IV SCH (22:45)
[2017-09-04] MEDS ORDERED: SODIUM CHLORIDE 0.9% FLUSH 10 ML FLUSH IV FLUSH PRN (22:45)
[2017-09-04] MEDS ORDERED: Post-op Orders (for Pharmacy) XX ONE (22:45)
[2017-09-04] MEDS ORDERED: NALOXONE HCL 0.4 MG/ML AMP IV PUSH PRN (22:45)
[2017-09-04] MEDS ORDERED: ONDANSETRON ODT 4 MG TAB PO PRN (22:45)
--- NOTE | 2017-09-04 22:59 | RADRPT ---
EXAM DATE/TIME: 09/04/2017 22:45 [facility] COMPARISON: No previous studies available for comparison. INDICATIONS : Evaluate for pneumonia, pneumothorax, or any communicable disease. Pre op left carotid surgery. MEDICAL HISTORY : Hypercholesterolemia. Hypertension. CAD. CVA. SURGICAL HISTORY : Tonsillectomy. CABG. ENCOUNTER: Initial ACUITY: 1 day PAIN SCORE: 0/10 LOCATION: Bilateral chest FINDINGS: Mild basilar atelectasis, mostly on the left. No pleural effusion seen. No pneumothorax. Mild cardiomegaly is stable. Patient has had previous median sternotomy and CABG. Thoracic aorta is t ortuous. CONCLUSION: Mild basilar atelectasis. Mild, stable compensated cardiomegaly. Rodolfo Aponte MD on September 04, 2017 at 22:57 Board Certified Radiologist. This report was verified electronically.
[2017-09-04] MEDS: SODIUM CHLOR 0.9% 1000 ML INJ 1,000 ML IV SCH (23:11)
[2017-09-05] VITALS (8 sets, daily range): BP systolic 129–187; BP diastolic 64–97; PULSE 60–71; RESP 17–22; TEMP 97.4–97.9; O2SAT 93–98
[2017-09-05 07:31] LABS: AUTOMATED NEUTROPHIL # 2.9 TH/MM3 (1.8-7.7); BASOPHIL # 0.1 TH/MM3 (0-0.2); BASOPHIL % 1.1 % (0.0-2.0); EOSINOPHIL # 0.1 TH/MM3 (0-0.4); EOSINOPHIL % 2.9 % (0.0-4.0); HEMOGLOBIN 15.8 GM/DL (13.0-17.0); LYMPH % 29.3 % (9.0-44.0); LYMPHOCYTE # 1.4 TH/MM3 (1.0-4.8); MEAN CELL VOLUME 87.9 FL (80.0-100.0); MEAN CORPUSCULAR HEMOGLOBIN 30.3 PG (27.0-34.0); MEAN CORPUSCULAR HGB CONC 34.4 % (32.0-36.0); MEAN PLATELET VOLUME 9.2 FL (7.0-11.0); MONO % 8.1 % (0.0-8.0); MONOCYTE # 0.4 TH/MM3 (0-0.9); NEUT % 58.6 % (16.0-70.0); PLATELET COUNT 156 TH/MM3 (150-450); RED BLOOD COUNT 5.23 MIL/MM3 (4.50-5.90); RED CELL DISTRIBUTION WIDTH 14.5 % (11.6-17.2); WHITE BLOOD COUNT 4.9 TH/MM3 (4.0-11.0)
[2017-09-05 07:33] LABS: INTERNATIONAL NORMALIZED RATIO 1.1 RATIO; PROTHROMBIN TIME - PATIENT 11.3 SEC (9.8-11.6)
[2017-09-05 08:15] LABS: OVALOCYTES 2+ (NORMAL)
[2017-09-05 08:22] LABS: ALBUMIN 3.8 GM/DL (3.4-5.0); BICARBONATE 26.4 MEQ/L (21.0-32.0); CALCIUM 9.4 MG/DL (8.5-10.1)
[2017-09-05] MEDS: LISINOPRIL 10 MG TAB PO SCH (08:24)
[2017-09-05] MEDS: DOCUSATE SODIUM 100 MG CAP PO SCH ×2 (08:24→20:15)
[2017-09-05] MEDS: SODIUM CHLORIDE 0.9% FLUSH 10 ML FLUSH IV FLUSH SCH ×2 (08:24→20:16)
[2017-09-05] MEDS: METOPROLOL SUCCINATE 25 MG EXTENDED RELEASE TAB PO SCH (08:24)
[2017-09-05] MEDS: CLOPIDOGREL 75 MG TAB PO SCH (08:26)
[2017-09-05 08:32] LABS: CREATININE 1.29 MG/DL (0.60-1.30); DIRECT BILIRUBIN ADULT 0.2 MG/DL (0.0-0.2); INDIRECT BILIRUBIN 0.8 MG/DL (0.0-0.8); TOTAL PROTEIN 7.9 GM/DL (6.4-8.2)
[2017-09-05] MEDS ORDERED: HEPARIN SODIUM - IV 10,000 UNITS/10 ML VIAL ONE ×2 (08:42→11:30)
[2017-09-05] MEDS ORDERED: HEPARIN SODIUM - SQ 10,000 UNITS/ML VIAL ONE (08:42)
[2017-09-05] MEDS ORDERED: PROTAMINE SULFATE 50 MG/5 ML VIAL ONE ×2 (08:43→11:32)
[2017-09-05] MEDS ORDERED: LIDOCAINE HCL 1% PF 10 ML VIAL ONE (08:46)
[2017-09-05] MEDS ORDERED: LIDOCAINE HCL 2% 50 ML VIAL ONE (08:51)
[2017-09-05] MEDS ORDERED: POTASSIUM CHLORIDE 20 MEQ CONTROLLED RELEASE TAB PO ONE (09:15)
[2017-09-05] MEDS: SODIUM CHLOR 0.9% 1000 ML INJ 1,000 ML IV SCH ×2 (10:37→18:35)
[2017-09-05] MEDS ORDERED: ACETAMINOPHEN 1000 MG/100 ML 100 ML IV ONE (11:34)
--- NOTE | 2017-09-05 12:42 | PD.CONS ---
[facility] By [facility] 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 He was found to have left carotid stenosis and scheduled for surgery by Dr. Ellsworth today. He has no residual motor deficits but has expressive aphasia. Consultation has been requested to evaluate and manage multiple medical conditions. Patient also has hypertension on lisinopril, and Norvasc and metoprolol, coronary artery disease status post CABG on aspirin, Plavix and hyperlipidemia on Lipitor LDL of 84. At this time patient has no complaints, denies fever, chills, headache, dizziness, chest pain, shortness of breath, UTI symptoms and diarrhea. Discussed with nursing Review of Systems Except as stated in HPI: all other systems reviewed are Neg Past Family Social History Allergies: Coded Allergies: No Known Allergies (Verified , 01/14/14) Past Medical History As previously mentioned. Suspected chronic kidney disease stage III and BPH with hematuria Past Surgical History As previously mentioned Reported Medications Reported Meds & Active Scripts Active Lisinopril 10 Mg Tab 10 Mg PO DAILY Norvasc (Amlodipine Besylate) 10 Mg Tab 10 Mg PO DAILY Lipitor (Atorvastatin Calcium) 10 Mg Tab 10 Mg PO HS Plavix (Clopidogrel Bisulfate) 75 Mg Tab 75 Mg PO DAILY Reported Zofran (Ondansetron HCl) 4 Mg Tab 4 Mg PO Q6HR PRN Tamsulosin (Tamsulosin HCl) 0.4 Mg Cap 0.4 Mg PO HS Metoprolol Succinate ER 24 HR (Metoprolol Succinate) 25 Mg Tab 25 Mg PO DAILY Family History Son had sudden cardiac Social History Quit smoking occasional alcohol use Physical Exam Vital Signs Vital Signs Date Time Temp Pulse Resp B/P (MAP) Pulse Ox O2 Delivery O2 Flow Rate FiO2 09/05/17 11:33 97.4 60 18 187/97 (127) 98 09/05/17 08:00 97.7 62 17 187/97 (127) 95 09/05/17 04:00 97.5 62 18 149/81 (103) 96 09/05/17 00:00 97.7 60 18 168/92 (117) 97 09/04/17 21:30 98.0 57 18 189/100 (129) 97 Physical Exam GENERAL: This is a well-nourished, well-developed patient, in no apparent distress. SKIN: No rashes, ecchymoses or lesions. Cool and dry. HEAD: Atraumatic. Normocephalic. No temporal or scalp tenderness. EYES: Pupils equal round and reactive. Extraocular motions intact. No scleral icterus. No injection or drainage. ENT: Nose without bleeding, purulent drainage or septal hematoma. Throat without erythema, tonsillar hypertrophy or exudate. Uvula midline. Airway patent. NECK: Trachea midline. No JVD or lymphadenopathy. Supple, nontender, no meningeal signs. CARDIOVASCULAR: Regular rate and rhythm without gallops, or rubs. Systolic murmur noted RESPIRATORY: Clear to auscultation. Breath sounds equal bilaterally. No wheezes , rales, or rhonchi. GASTROINTESTINAL: Abdomen soft, non-tender, nondistended. No hepato-splenomegaly , or palpable masses. No guarding. MUSCULOSKELETAL: Extremities without clubbing, cyanosis, or edema. No joint tenderness, effusion, or edema noted. No calf tenderness. Negative Homans sign bilaterally. NEUROLOGICAL: Awake and alert. Cranial nerves II through XII intact. Motor and sensory grossly within normal limits. Five out of 5 muscle strength in all muscle groups. Has expressive aphasia Laboratory Laboratory Tests Test 09/05/17 06:07 09/05/17 06:09 Prothrombin Time 11.3 Prothromb Time International Ratio 1.1 Blood Urea Nitrogen 17 Creatinine 1.29 Random Glucose 86 Total Protein 7.9 Albumin 3.8 Calcium Level 9.4 Alkaline Phosphatase 73 Aspartate Amino Transf (AST/SGOT) 25 Alanine Aminotransferase (ALT/SGPT) 37 Total Bilirubin 1.0 Direct Bilirubin 0.2 Sodium Level 139 Potassium Level 3.6 Chloride Level 105 Carbon Dioxide Level 26.4 Anion Gap 8 Estimat Glomerular Filtration Rate 54 Indirect Bilirubin 0.8 White Blood Count 4.9 Red Blood Count 5.23 Hemoglobin 15.8 Hematocrit 46.0 Mean Corpuscular Volume 87.9 Mean Corpuscular Hemoglobin 30.3 Mean Corpuscular Hemoglobin Concent 34.4 Red Cell Distribution Width 14.5 Platelet Count 156 Mean Platelet Volume 9.2 Neutrophils (%) (Auto) 58.6 Lymphocytes (%) (Auto) 29.3 Monocytes (%) (Auto) 8.1 Eosinophils (%) (Auto) 2.9 Basophils (%) (Auto) 1.1 Neutrophils # (Auto) 2.9 Lymphocytes # (Auto) 1.4 Monocytes # (Auto) 0.4 Eosinophils # (Auto) 0.1 Basophils # (Auto) 0.1 CBC Comment AUTO DIFF Differential Comment AUTO DIFF CONFIRMED Platelet Estimate LOW Platelet Morphology Comment NORMAL Ovalocytes 2+ Result Diagram: 09/05/17 0609 09/05/17 06 Assessment and Plan Problem List: (1) Peripheral vascular disease ICD Code: I73.9 - Peripheral vascular disease, unspecified Assessment and Plan This is a 72-year-old male was hospitalized a month ago for left MCA CVA. He was found to have left carotid stenosis and scheduled for surgery by Dr. Ellsworth today. Left MCA CVA expressive aphasia. Stable continue aspirin, Plavix and statin Hypertension on lisinopril, and Norvasc and metoprolol. Ct To monitor. Coronary artery disease status post CABG. Stable continue antiplatelets Hyperlipidemia on Lipitor LDL of 84. DVT prophylaxis with SCD and early ambulation. Pharmacological prophylaxis if okay with vascular surgery Discussed Condition With Patient. Possible discharge back to SNF in 1-2 days Stiven Daily MD Sep 05, 2017 12:42
[2017-09-05] MEDS ORDERED: NITROGLYCERIN INJ 5 ML ONE (13:03)
[2017-09-05] MEDS ORDERED: LACTATED RINGER'S 1000 ML IV PRN (14:15)
[2017-09-05] MEDS ORDERED: METOPROLOL TARTRATE 25 MG TAB PO PRN (14:15)
[2017-09-05] MEDS ORDERED: SODIUM CHLORID 0.9% 500 ML IV PRN (14:15)
[2017-09-05] MEDS ORDERED: CHLORHEXIDINE GLUCONATE 2 % 1 PACK (2 CLOTHS) TOPICAL PRN (14:15)
[2017-09-05] MEDS ORDERED: POVIDONE IODINE 5% (ANTISEPSIS KIT) 4 APPLICATIONS EACH NARE PRN (14:15)
--- NOTE | 2017-09-05 15:25 | EKG ---
Date Performed: 09/05/2017 Time Performed: 09:14:00 PTAGE: 72 years EKG: Sinus rhythm INFERIOR MYOCARDIAL INFARCTION , PROBABLY OLD MODERATE T-WAVE ABNORMALITY, CONSIDER LATERAL ISCHEMIA ABNORMAL ECG Since the PREVIOUS TRACING , no significant change noted PREVIOUS TRACIN07/28/2017 11.50 DOCTOR: Jhonatan Thakkar Interpretating Date/Time 09/05/2017 15:20:59
[2017-09-05] MEDS ORDERED: DO NOT ADM ANY ANTICOAGULANT DRUGS PRN (15:30)
[2017-09-05] MEDS ORDERED: niCARdipine INJ 25 MG in SODIUM CHLOR 0.9% 250 ML INJ 240 ML IV PRN (16:00)
--- NOTE | 2017-09-05 16:04 | MP ---
cc: Raina Ellsworth MD DATE OF OPERATION: 09/05/2017 PREOPERATIVE DIAGNOSES: 1. Recurrent strokes and recurrent transient ischemic accidents. 2. Tight left internal carotid artery stenosis. POSTOPERATIVE DIAGNOSES: 1. Recurrent strokes and recurrent transient ischemic accidents. 2. Tight left internal carotid artery stenosis. 3. 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 OPERATIVE PROCEDURE: Left carotid endarterectomy with patch angioplasty. SURGEON: MD Jodee. ANESTHESIA: General. ESTIMATED BLOOD LOSS: 250 mL. OPERATIVE PROCEDURE: Patient prepped and draped in usual fashion and a left para-sternocleidomastoid incision made, deepened down through the platysma into the carotid sheath. Facial vein was ligated and divided. The common carotid, internal and external carotid arteries were isolated with sharp and blunt dissection. The hypoglossal nerve was carefully identified and preserved. Weitlaner retractors and upper arm iron architecture internship is placed to expose the structures. Umbilical tapes are placed around the common, internal and external carotid arteries. The patient has a fairly developed artery carotid LUBNA and this was ligated and divided. The internal carotid artery is now observed. It is thickened and inflamed-appearing proximally. There is a huge plaque which can be palpated from outside, brought more distally. The vessel is soft. The patient is given 7000 units of heparin and then clamps applied, bulldog to the internal carotid artery and the DeBakey clamp to the common carotid artery while the Bi is cinched down on external. Vessels opened longitudinally with Saldana scissors and then immediately a 12-Monegasque Lovely shunt is placed and blood flow reestablished. The vessel is now observed complications. The patient is a huge plaque occupying the first inch of the internal carotid artery, extending into the common, but then there is a large ulcer. To be honest, I do not seeing an ulcer this big in a long time. It measures about 8 mm and it is filled with necrotic material. I can tell right away where the rest of this stuff went last time. Dissection was now carried out using [place] dissector in the media plane. Plaque is elevated and then removed in 1 piece. Proximal and distal ends smoothed out. Intima in the internal carotid artery is tightly adherent distally so no need for additional stitches there. The vessel is washed out with heparinized saline and small debris is removed with Leksell's. An 8 mm bovine patch is now chosen and sewn in with running 5-0 Prolene. Prior to completion of the arterial closure, the Lovely shunt is removed and closure is completed. Blood flow is now reestablished in the usual order and fashion preventing distal embolization into the internal carotid artery. A few more 6-0 Prolene sutures are placed for small bleeders around the patch. Doppler signal is very strong and at this point a 7 flat KADI is laid in the area as well as some Surgicel. Incision is closed with 2-0 Vicryl in layers and 4-0 Monocryl. The patient out of the operating room in stable condition. MD BREANN Quiros/LEANNA , 03:22 PM , 04:03 PM
[2017-09-05] MEDS: MORPHINE SULFATE 2 MG/ML SYRINGE IV PUSH PRN ×2 (19:02→20:58)
[2017-09-05] MEDS: TAMSULOSIN HCL 0.4 MG CAP PO SCH (20:16)
[2017-09-05] MEDS: ATORVASTATIN 10 MG TAB PO SCH (20:16)
[2017-09-06] VITALS (13 sets, daily range): BP systolic 116–168; BP diastolic 60–88; PULSE 56–73; RESP 16–21; TEMP 97.8–98; O2SAT 95–100
[2017-09-06] MEDS: SODIUM CHLOR 0.9% 1000 ML INJ 1,000 ML IV SCH ×2 (03:55→14:35)
[2017-09-06] MEDS: oxyCODONE/ACETAMINOPHEN 5 MG/325 MG TAB PO PRN ×2 (08:54→17:31)
[2017-09-06] MEDS: DOCUSATE SODIUM 100 MG CAP PO SCH ×2 (08:55→21:59)
[2017-09-06] MEDS: SODIUM CHLORIDE 0.9% FLUSH 10 ML FLUSH IV FLUSH SCH ×2 (08:55→21:00)
[2017-09-06] MEDS: METOPROLOL SUCCINATE 25 MG EXTENDED RELEASE TAB PO SCH (08:55)
[2017-09-06] MEDS: CLOPIDOGREL 75 MG TAB PO SCH (08:55)
[2017-09-06] MEDS: LISINOPRIL 10 MG TAB PO SCH (08:55)
[2017-09-06] MEDS ORDERED: cloNIDine HCL 0.1 MG TAB PO PRN (11:30)
--- NOTE | 2017-09-06 11:56 | HHI.PR ---
Subjective Remarks No acute complaints today. Patient is feeling well postop. Physical therapy evaluation is pending. Medically patient will be cleared for discharge when cleared by surgery. Determination of location for discharge will be based on physical therapy assessment. Patient is hoping to return to home with home PT. Objective Vital Signs Date Time Temp Pulse Resp B/P (MAP) Pulse Ox O2 Delivery O2 Flow Rate FiO2 09/06/17 10:00 60 09/06/17 09:54 18 09/06/17 09:18 97 21 09/06/17 08:00 60 09/06/17 06:00 65 09/06/17 04:00 58 09/06/17 04:00 98.0 58 18 142/64 (90) 100 09/06/17 02:00 60 09/06/17 00:00 56 09/06/17 00:00 97.8 56 16 132/60 (84) 100 09/05/17 22:30 65 170/82 09/05/17 22:00 64 09/05/17 20:00 97.9 62 18 137/87 (104) 97 09/05/17 20:00 62 09/05/17 19:38 93 Nasal Cannula 3.00 09/05/17 18:00 97.8 71 22 163/88 (113) 97 129/64 (85) 09/05/17 17:15 66 17 138/67 (90) 98 Nasal Cannula 3 09/05/17 17:00 63 18 131/64 (86) 97 Nasal Cannula 3 09/05/17 16:45 68 17 151/74 (99) 97 Nasal Cannula 3 09/05/17 16:30 66 18 132/66 (88) 96 Nasal Cannula 3 09/05/17 16:15 64 14 127/64 (85) 96 Nasal Cannula 3 09/05/17 16:00 67 16 124/71 (88) 95 Nasal Cannula 3 09/05/17 15:45 72 19 134/69 (90) 96 Nasal Cannula 3 09/05/17 15:27 97.7 80 19 133/85 (101) 97 Nasal Cannula 3 I/O 09/05/17 09/05/17 09/05/17 09/06/17 09/06/17 09/06/17 07:00 15:00 23:00 07:00 15:00 23:00 Intake Total 0 ml 1700 ml 1000 ml Output Total 1075 ml 640 ml Balance 0 ml 625 ml 360 ml Intake Oral 0 ml 0 ml IV Total 1000 ml Other 1700 ml Output Urine Total 700 ml 600 ml Drainage Total 75 ml 40 ml Estimated Blood Loss 300 ml # Voids 4 # Bowel Movements 0 0 Result Diagram: 09/05/17 0609 09/05/17 0607 Objective Remarks GENERAL: NAD, A&Ox3, dysarthria of speech HEAD: Normocephalic. NECK: Supple, trachea midline. No lymphadenopathy. Left neck wound bandaged. EYES: No scleral icterus. No injection or drainage. CARDIOVASCULAR: Regular rate and rhythm without murmurs, gallops, or rubs. RESPIRATORY: Breath sounds equal bilaterally. No accessory muscle use. GASTROINTESTINAL: Abdomen soft, non-tender, nondistended. MUSCULOSKELETAL: No cyanosis, or edema. SKIN: Warm and dry. NEURO: No focal neurological deficitis. A/P Problem List: (1) Carotid artery stenosis ICD Code: I65.29 - Occlusion and stenosis of unspecified carotid artery (2) Peripheral vascular disease ICD Code: I73.9 - Peripheral vascular disease, unspecified Assessment and Plan 72-year-old male status post carotid endarterectomy for carotid artery stenosis , prior hospitalization related to CVA at left MCA. Subacute left MCA CVA Chronic expressive aphasia. Continue physical therapy Continue speech therapy stable continue aspirin, Plavix and statin Hypertension Lisinopril, Norvasc, and metoprolol continued Follow blood pressures As needed clonidine Carotid artery disease Status post CABG, subacute Continue antiplatelets as above Hyperlipidemia Continue statin Discharge planning Medically cleared and stable for discharge Possibility of discharge to penitentiary facility versus home with home PT Discharge to be determined by attending physician John Dominguez MD Sep 06, 2017 11:56
--- NOTE | 2017-09-06 12:09 | HHI.PR ---
Subjective Subjective Notes S/p CEA POD#1 doing well-no complaints KADI output small Objective Vitals/I&O Vital Signs Date Time Temp Pulse Resp B/P (MAP) Pulse Ox O2 Delivery O2 Flow Rate FiO2 09/06/17 10:00 60 09/06/17 09:54 18 09/06/17 09:18 97 21 09/06/17 04:00 98.0 142/64 (90) 09/05/17 19:38 Nasal Cannula 3.00 Labs neck-clean neuro intact baseline aphasia Cardiovascular: Regular Lungs: Clear Abdomen: Non-distended A/P Assessment and Plan stable postop BP slightly high transfer floor after BP control established Radha Hills MD Sep 06, 2017 12:09
[2017-09-06 15:09] LABS: HEMATOCRIT 43.5 % (39.0-51.0); HEMOGLOBIN 14.8 GM/DL (13.0-17.0); MEAN CELL VOLUME 88.6 FL (80.0-100.0); MEAN CORPUSCULAR HEMOGLOBIN 30.1 PG (27.0-34.0); MEAN CORPUSCULAR HGB CONC 33.9 % (32.0-36.0); MEAN PLATELET VOLUME 9.1 FL (7.0-11.0); PLATELET COUNT 161 TH/MM3 (150-450); RED BLOOD COUNT 4.91 MIL/MM3 (4.50-5.90); WHITE BLOOD COUNT 9.7 TH/MM3 (4.0-11.0)
[2017-09-06 15:30] LABS: BICARBONATE 24.7 MEQ/L (21.0-32.0); CALCIUM 8.8 MG/DL (8.5-10.1); CREATININE 1.24 MG/DL (0.60-1.30)
--- NOTE | 2017-09-06 16:02 | PD.CAR.PN ---
CVT Progress Note Subjective/Hospital Course: Post L carotid endarterectomy Incision clean/dry HTN, was on Cardene drip till this am. Now on oral medications. Neuro intact to the same degree as before the surgery. Motoric intact. Still some dysarthria. DC KADI, DC a-line Transfer to floor. Dr Hills following Objective: Vital Signs Date Time Temp Pulse Resp B/P (MAP) Pulse Ox O2 Delivery O2 Flow Rate FiO2 09/06/17 10:00 60 09/06/17 09:54 18 09/06/17 09:18 97 21 09/06/17 08:00 60 09/06/17 06:00 65 09/06/17 04:00 58 09/06/17 04:00 98.0 58 18 142/64 (90) 100 09/06/17 02:00 60 09/06/17 00:00 56 09/06/17 00:00 97.8 56 16 132/60 (84) 100 09/05/17 22:30 65 170/82 09/05/17 22:00 64 09/05/17 20:00 97.9 62 18 137/87 (104) 97 09/05/17 20:00 62 09/05/17 19:38 93 Nasal Cannula 3.00 09/05/17 18:00 97.8 71 22 163/88 (113) 97 129/64 (85) 09/05/17 17:15 66 17 138/67 (90) 98 Nasal Cannula 3 09/05/17 17:00 63 18 131/64 (86) 97 Nasal Cannula 3 09/05/17 16:45 68 17 151/74 (99) 97 Nasal Cannula 3 09/05/17 16:30 66 18 132/66 (88) 96 Nasal Cannula 3 09/05/17 16:15 64 14 127/64 (85) 96 Nasal Cannula 3 09/05/17 16:00 67 16 124/71 (88) 95 Nasal Cannula 3 Labs: Laboratory Tests Test 09/06/17 14:39 White Blood Count 9.7 TH/MM3 (4.0-11.0) Red Blood Count 4.91 MIL/MM3 (4.50-5.90) Hemoglobin 14.8 GM/DL (13.0-17.0) Hematocrit 43.5 % (39.0-51.0) Mean Corpuscular Volume 88.6 FL (80.0-100.0) Mean Corpuscular Hemoglobin 30.1 PG (27.0-34.0) Mean Corpuscular Hemoglobin Concent 33.9 % (32.0-36.0) Red Cell Distribution Width 15.0 % (11.6-17.2) Platelet Count 161 TH/MM3 (150-450) Mean Platelet Volume 9.1 FL (7.0-11.0) Blood Urea Nitrogen 16 MG/DL (7-18) Creatinine 1.24 MG/DL (0.60-1.30) Random Glucose 98 MG/DL (74-106) Calcium Level 8.8 MG/DL (8.5-10.1) Sodium Level 140 MEQ/L (136-145) Potassium Level 4.1 MEQ/L (3.5-5.1) Chloride Level 106 MEQ/L (98-107) Carbon Dioxide Level 24.7 MEQ/L (21.0-32.0) Anion Gap 9 MEQ/L (5-15) Estimat Glomerular Filtration Rate 57 ML/MIN (>89) Result Diagram: 09/06/17 1439 09/06/17 1439 Raina Ellsworth MD Sep 06, 2017 16:02
[2017-09-06] MEDS: ATORVASTATIN 10 MG TAB PO SCH (21:59)
[2017-09-06] MEDS: TAMSULOSIN HCL 0.4 MG CAP PO SCH (21:59)
[2017-09-07] VITALS (8 sets, daily range): BP systolic 116–156; BP diastolic 58–75; PULSE 54–68; RESP 14–18; TEMP 97.4–98.2; O2SAT 94–96
[2017-09-07] MEDS: SODIUM CHLOR 0.9% 1000 ML INJ 1,000 ML IV SCH ×2 (00:35→10:35)
[2017-09-07 06:24] LABS: AUTOMATED NEUTROPHIL # 4.7 TH/MM3 (1.8-7.7); BASOPHIL % 0.7 % (0.0-2.0); EOSINOPHIL % 0.6 % (0.0-4.0); HEMATOCRIT 38.2 % (39.0-51.0); HEMOGLOBIN 13.4 GM/DL (13.0-17.0); LYMPH % 20.4 % (9.0-44.0); LYMPHOCYTE # 1.4 TH/MM3 (1.0-4.8); MEAN CELL VOLUME 86.6 FL (80.0-100.0); MEAN CORPUSCULAR HEMOGLOBIN 30.4 PG (27.0-34.0); MEAN PLATELET VOLUME 8.9 FL (7.0-11.0); MONO % 7.4 % (0.0-8.0); MONOCYTE # 0.5 TH/MM3 (0-0.9); NEUT % 70.9 % (16.0-70.0); PLATELET COUNT 140 TH/MM3 (150-450); RED BLOOD COUNT 4.41 MIL/MM3 (4.50-5.90); RED CELL DISTRIBUTION WIDTH 15.1 % (11.6-17.2); WHITE BLOOD COUNT 6.7 TH/MM3 (4.0-11.0)
[2017-09-07] MEDS: LISINOPRIL 10 MG TAB PO SCH (10:14)
[2017-09-07] MEDS: CLOPIDOGREL 75 MG TAB PO SCH (10:14)
[2017-09-07] MEDS: METOPROLOL SUCCINATE 25 MG EXTENDED RELEASE TAB PO SCH (10:14)
[2017-09-07] MEDS: SODIUM CHLORIDE 0.9% FLUSH 10 ML FLUSH IV FLUSH SCH (10:14)
[2017-09-07] MEDS: DOCUSATE SODIUM 100 MG CAP PO SCH (10:15)
--- NOTE | 2017-09-07 10:49 | PD.CAR.PN ---
CVT Progress Note Subjective/Hospital Course: Post L carotid endarterectomy Incision clean/dry HTN, was on Cardene drip till this am. Now on oral medications. Neuro intact to the same degree as before the surgery. Motoric intact. Still some dysarthria. DC KADI, DC a-line Transfer to floor. Dr Hills following 09/07/17 Doing well. Neurologically stable Incision clean dry DC patient back to rehab today Objective: Vital Signs Date Time Temp Pulse Resp B/P (MAP) Pulse Ox O2 Delivery O2 Flow Rate FiO2 09/07/17 06:00 54 09/07/17 04:00 66 09/07/17 04:00 97.9 66 18 156/75 (102) 96 09/07/17 02:00 60 09/07/17 00:00 98.2 58 15 116/74 (88) 94 09/07/17 00:00 58 09/06/17 22:00 73 09/06/17 20:00 60 09/06/17 20:00 97.8 60 21 139/84 (102) 95 09/06/17 18:30 20 09/06/17 18:10 61 09/06/17 16:00 66 09/06/17 16:00 98.0 61 18 116/74 (88) 100 09/06/17 14:00 61 09/06/17 12:00 98.0 60 20 168/88 (114) 99 Arterial Line 09/06/17 12:00 61 Labs: Laboratory Tests Test 09/07/17 05:46 White Blood Count 6.7 TH/MM3 (4.0-11.0) Red Blood Count 4.41 MIL/MM3 (4.50-5.90) Hemoglobin 13.4 GM/DL (13.0-17.0) Hematocrit 38.2 % (39.0-51.0) Mean Corpuscular Volume 86.6 FL (80.0-100.0) Mean Corpuscular Hemoglobin 30.4 PG (27.0-34.0) Mean Corpuscular Hemoglobin Concent 35.0 % (32.0-36.0) Red Cell Distribution Width 15.1 % (11.6-17.2) Platelet Count 140 TH/MM3 (150-450) Mean Platelet Volume 8.9 FL (7.0-11.0) Neutrophils (%) (Auto) 70.9 % (16.0-70.0) Lymphocytes (%) (Auto) 20.4 % (9.0-44.0) Monocytes (%) (Auto) 7.4 % (0.0-8.0) Eosinophils (%) (Auto) 0.6 % (0.0-4.0) Basophils (%) (Auto) 0.7 % (0.0-2.0) Neutrophils # (Auto) 4.7 TH/MM3 (1.8-7.7) Lymphocytes # (Auto) 1.4 TH/MM3 (1.0-4.8) Monocytes # (Auto) 0.5 TH/MM3 (0-0.9) Eosinophils # (Auto) 0.0 TH/MM3 (0-0.4) Basophils # (Auto) 0.0 TH/MM3 (0-0.2) CBC Comment DIFF FINAL Differential Comment Result Diagram: 09/07/17 0546 09/06/17 1439 Raina Ellsworth MD Sep 07, 2017 10:49
[2017-09-07] MEDS ORDERED: OXYC1TAB63 PO (12:13)
--- NOTE | 2017-09-07 12:26 | HHI.PR ---
Subjective Remarks Patient is doing better today. Plan to discharge today. Medically placed in a stable for discharge. Objective Vital Signs Date Time Temp Pulse Resp B/P (MAP) Pulse Ox O2 Delivery O2 Flow Rate FiO2 09/07/17 06:00 54 09/07/17 04:00 66 09/07/17 04:00 97.9 66 18 156/75 (102) 96 09/07/17 02:00 60 09/07/17 00:00 98.2 58 15 116/74 (88) 94 09/07/17 00:00 58 09/06/17 22:00 73 09/06/17 20:00 60 09/06/17 20:00 97.8 60 21 139/84 (102) 95 09/06/17 18:30 20 09/06/17 18:10 61 09/06/17 16:00 66 09/06/17 16:00 98.0 61 18 116/74 (88) 100 09/06/17 14:00 61 I/O 09/06/17 09/06/17 09/06/17 09/07/17 09/07/17 09/07/17 07:00 15:00 23:00 07:00 15:00 23:00 Intake Total 1000 ml 225 ml 400 ml 480 ml Output Total 640 ml 1200 ml 350 ml Balance 360 ml 225 ml -800 ml 130 ml Intake Oral 0 ml 400 ml 480 ml IV Total 1000 ml 225 ml Output Urine Total 600 ml 1200 ml 350 ml Drainage Total 40 ml # Voids 1 3 # Bowel Movements 0 0 0 Result Diagram: 09/07/17 0546 09/06/17 1439 Objective Remarks GENERAL: NAD, A&Ox3, dysarthria of speech HEAD: Normocephalic. NECK: Supple, trachea midline. No lymphadenopathy. Left neck wound bandaged. EYES: No scleral icterus. No injection or drainage. CARDIOVASCULAR: Regular rate and rhythm without murmurs, gallops, or rubs. RESPIRATORY: Breath sounds equal bilaterally. No accessory muscle use. GASTROINTESTINAL: Abdomen soft, non-tender, nondistended. MUSCULOSKELETAL: No cyanosis, or edema. SKIN: Warm and dry. NEURO: No focal neurological deficitis. A/P Problem List: (1) Carotid artery stenosis ICD Code: I65.29 - Occlusion and stenosis of unspecified carotid artery (2) Peripheral vascular disease ICD Code: I73.9 - Peripheral vascular disease, unspecified Assessment and Plan 72-year-old male status post carotid endarterectomy for carotid artery stenosis , prior hospitalization related to CVA at left MCA. Narcotic prescription provided and signed. Patient is medically clear for discharge home today. Subacute left MCA CVA Chronic expressive aphasia. Continue physical therapy Continue speech therapy stable continue aspirin, Plavix and statin Hypertension Lisinopril, Norvasc, and metoprolol continued Follow blood pressures As needed clonidine Carotid artery disease Status post CABG, subacute Continue antiplatelets as above Hyperlipidemia Continue statin Discharge planning Medically cleared and stable for discharge Possibility of discharge to snf facility versus home with home PT Discharge to be determined by attending physician John Dominguez MD Sep 07, 2017 12:26
[2017-09-07 13:06] LABS: ALBUMIN 3.4 GM/DL (3.4-5.0); ALKALINE PHOSPHATASE 61 U/L (45-117); ALT (GPT) 35 U/L (12-78); AST (GOT) 40 U/L (15-37); BICARBONATE 25.9 MEQ/L (21.0-32.0); BLOOD UREA NITROGEN 22 MG/DL (7-18); CALCIUM 8.7 MG/DL (8.5-10.1); CHLORIDE 106 MEQ/L (98-107); CREATININE 1.29 MG/DL (0.60-1.30); GLOMERULAR FILTRATION RATE 54 ML/MIN (>89); GLUCOSE,RANDOM 91 MG/DL (74-106); SODIUM (NA) 138 MEQ/L (136-145); TOTAL BILIRUBIN ADULT 0.5 MG/DL (0.2-1.0); TOTAL PROTEIN 7.3 GM/DL (6.4-8.2)
--- NOTE | 2017-09-07 13:21 | HHI.FF ---
Face to Face Verification Diagnosis: (1) Hemiplegia (2) Carotid artery stenosis (3) Peripheral vascular disease (4) Hematuria Physical Therapy Order: Evaluate and Treat, Improve ambulation, Strength and gait training Occupational Therapy Order: Evaluate and Treat, Gross motor coordination, Fine motor coordination Home Health Nursing Order: Wound care and dressing changes Nursing assessment with vital signs I have seen patient Javier Hodgson on 09/07/17. My clinical findings support the need for the requested home health care services because: Ltd mobility - disease progression Deconditioned w/ increased weakness Limited ability to care for self Need for psychosocial assistance High risk of falls I certify that my clinical findings support that this patient is homebound because: Impaired cognitive ability/safety Unsteady gait/balance Unsafe to leave home unassisted Unable to use public transportation John Dominguez MD Sep 07, 2017 13:21
[2017-09-07] MEDS: oxyCODONE/ACETAMINOPHEN 5 MG/325 MG TAB PO PRN (16:25)
--- NOTE | 2017-09-11 13:27 | HHI.FF ---
Face to Face Verification Diagnosis: (1) Hemiplegia (2) Hematuria (3) Carotid artery stenosis (4) Peripheral vascular disease Home Health Nursing Order: Signs/symptoms of disease process Nursing assessment with vital signs I have seen patient Javier Hodgson on 09/11/17. My clinical findings support the need for the requested home health care services because: Ltd mobility - disease progression Patient has SOB Deconditioned w/ increased weakness Limited ability to care for self I certify that my clinical findings support that this patient is homebound because: Post-op weakness Unsteady gait/balance Unsafe to leave home unassisted Unable to use public transportation John Dominguez MD Sep 11, 2017 13:27
== END 2017-09-07 16:48 | disposition home health service (06) | DRG 39 ==
LOC: N07A 21:20 → OBSVTOIN 21:20 → HCPC 09-05 12:13 → N03B 09-05 17:48 → N03A 09-06 22:08
PROVIDERS: ADMIT Surgery; ATTEND Surgery
PROC: 03UL0KZ Supplement Left Internal Carotid Artery with Nonautologous Tissue Substitute, Open Approach (ICD-10-PCS; 2017-09-05)
PROC: 03CL0ZZ Extirpation of Matter from Left Internal Carotid Artery, Open Approach (ICD-10-PCS; principal; 2017-09-05 12:52)
DX: I65.22 Occlusion and stenosis of left carotid artery (principal); I69.320 Aphasia following cerebral infarction; E78.5 Hyperlipidemia, unspecified; I25.10 Atherosclerotic heart disease of native coronary artery without angina pectoris; I73.9 Peripheral vascular disease, unspecified; Z95.1 Presence of aortocoronary bypass graft; Z87.891 Personal history of nicotine dependence
CPT/HCPCS: 71045; 80048; 80053; 80076; 85025; 85027; 85610; 86850; 86900; 86901; 86920; 88304; 88311; 93005; 94150; C1768; J0131; J0690; J1644; J2270; J2720; J3010; J7030; J7050